=== PATIENT | female | born 1940 | race Hispanic/Latino ===

== ENCOUNTER → 2018-12-14 | Day surgery (SDC) | payer MEDICARE, OTHER ==
[2018-12-03 12:51] LABS: BASOPHILS % 0.1 % (0.0-1.0); EOSINOPHILS # (AUTO) 0.1 (0.0-0.4); EOSINOPHILS % 1.3 % (0.0-6.0); HEMATOCRIT 39.6 % (34.2-44.1); HEMOGLOBIN 12.6 g/dL (12.0-16.0); LYMPHOCYTES # (AUTO) 1.3 (1.0-3.2); LYMPHOCYTES % 18.1 % (18.0-39.1); MEAN CORPUSCULAR HEMOGLOBIN 29.3 pg (28-32); MEAN CORPUSCULAR HGB CONC 31.8 g/dL (31-35); MEAN CORPUSCULAR VOLUME 92.1 fL (81-99); MONOCYTES # (AUTO) 0.4 (0.2-0.8); MONOCYTES % 5.2 % (4.4-11.3); NEUTROPHILS # (AUTO) 5.3 (2.1-6.9); PLATELET COUNT 156 x10e3/uL (140-360); RED CELL DISTRIBUTION WIDTH 13.4 % (11.7-14.4)
[~2018-12-14] MED LIST: AMLODIPINE BESYL5 MG PO; ASPERCREAM TOP; ASPIR 8181 MG PO; ATORVASTATIN CA10 MG PO; FENTANYL CITRATE/PF 100MCG/2 ML INJ ONE; GABAPENTIN300 MG PO; GLIMEPIRIDE2 MG PO; HYDROCHLOROTHIA25 MG PO; HYDROXYZINE HCL25 MG PO; HYOSCYAMINE SULFATE 0.5 MG/ML INJ ONE; IBANDRONATE SO150 MG PO; IMODIUM A-1 MG/7.5 M PO; JARDIANCE PO; LEVSIN0.125 MG PO; LIDOCAINE HCL 2% LOCAL INJ 5 ML SDV VIAL INJ ONE; LOSARTAN POTAS100 MG PO; MAGNESIUM OXID400 MG PO; METFORMIN HCL500 M2 PO; MYRBETRIQ25 MG PO; OMEPRAZOLE40 MG PO; PEDIALYTE1000 ML PO; PROPOFOL IV EMULSION 10 MG/ML 50 ML VIAL ONE; SUCRALFATE1 GM PO; TUCKS1 EAC1 TOP; VIT D3 PO
[2018-12-14 13:15] VITALS: BP 135/79
--- NOTE | 2018-12-14 20:20 | Operative Report ---
DATE OF PROCEDURE: 12/14/2018 SURGEON: Zak Mejia MD PROCEDURES: EGD with biopsies and colonoscopy with polypectomy and biopsies. INDICATIONS FOR EGD: Upper abdominal pain, history of dark stools. INDICATIONS FOR COLONOSCOPY: Colorectal cancer screening, history of intermittent loose stools. MEDICATIONS: The patient was done under MAC, please see anesthesiologist's note. PROCEDURE IN DETAIL: With the patient in left lateral decubitus position, a flexible fiberoptic Olympus gastroscope was introduced into the esophagus under direct visualization without any difficulty. There was some patchy erythema noted in distal esophagus. The scope was then advanced with ease into the stomach traversing a small sliding hiatal hernia. Mucosa overlying the antrum and the body revealed some patchy areas of erythema and low-grade to moderate edema and biopsies were obtained, sent to stain for H pylori. Pylorus was of normal contour and shape, was intubated with ease and the scope was advanced all the way to the second portion of the duodenum. Biopsies were obtained from the proximal second portion and duodenal bulb to rule out sprue. The scope was then withdrawn back into the stomach and retroflexed and mucosa overlying the fundus and cardia appeared to be within normal limits. The scope was then straightened out, it was subsequently withdrawn. The patient tolerated the procedure well. IMPRESSION: 1. Distal esophagitis, mild. 2. Small sliding hiatal hernia. 3. Gastritis, biopsied. Biopsies sent to stain for Helicobacter pylori. 4. Rule out sprue. PLAN: Follow up histology. Increase omeprazole to 40 mg 1 p.o. before meals b.i.d. The patient was then turned around and after adequate lubrication of the anal canal, a flexible fiberoptic Olympus colonoscope was inserted into the rectum with ease and advanced all the way to the cecum. The scope was then withdrawn slowly and mucosa overlying the cecum appeared to be within normal limits. Some diverticular disease was noted in the ascending colon. One polyp was hot biopsied from the ascending colon and there was a submucosal nodule ? lymphoma was noted in the distal ascending colon and that was biopsied. The transverse, descending, sigmoid, and rectum grossly appeared to be within normal limits. The scope was then retroflexed into the distal rectum and small internal hemorrhoids were noted, none of which was actively bleeding. The scope was then straightened out, and it was subsequently withdrawn. The patient tolerated procedure well. IMPRESSION: 1. Ascending colon polyp, hot biopsied. 2. Rule out lipoma, ascending colon. 3. Diverticulosis, ascending colon. 4. Internal hemorrhoids, none actively bleeding. PLAN: Follow up histology. Initiate high-fiber, low-fat diet. Initiate high-fiber supplement. The patient might benefit from a followup colonoscopy in 3 to 5 years. MD KENDRA Noble/ELLE /[id number] cc: Opal Guajardo MD
--- OUTSIDE RECORDS SUMMARY | 2018-12-16 14:44 | XMS REPORT | Clinical Summary ---
Author Author [facility] Organization [facility] Address Unknown Phone Unavailable Care Team Providers Care Market Research Specialist Name Role Phone Waldemar Taveras MD PCP Allergies No Known Allergies Medications Not on file Active Problems Not on file Social History Date Tobacco Use Types Packs/Day Years Used Never Smoker Alcohol Use Drinks/Week oz/Week Comments No Sex Assigned at Date Recorded Not on file Industry Job Start Date Occupation Not on file Not on file Not on file Travel End Travel History Travel Start No recent travel history available. Last Filed Vital Signs Not on file Plan of Treatment Not on file Results Not on fileafter 12/15/2017 Insurance Type Payer Benefit Subscriber ID Effective Phone Address Plan / Dates Group HMO [employer] AMER[employer] xxxxxxxxx 2015-P -[employer] resent AGE MCR O Medicaid MEDICAID MEDICAID xxxxxxxxx 2016-P resent (Home) [place] [address] Advance Directives Patient has advance care planning documents on file. For more information, elvie royal contact: Fareed Palacios [address] [place] [address]
--- OUTSIDE RECORDS SUMMARY | 2018-12-16 14:45 | XMS REPORT | Continuity of Care Document ---
Author Author [facility] Interface Address Unknown Phone Unavailable Problems Problem Status Onset Date Classification Date Reported Comments Source Acute bronchitis, unspecified 09/27/2017 12/25/2017 [facility] Acute URI 09/18/2017 12/25/2017 [facility] Acute bronchitis 09/18/2017 12/25/2017 [facility] COUGH Active 09/17/2017 [facility] CHEST PAIN UNSPECIFIED, ARRHYTHMIA, MUSC Active 04/27/2017 [facility] HEADACHE Active 03/02/2017 [facility] ORTHOSTATIC HYPOTENSION, HYPOMAGNESEMIA Active 03/02/2017 [facility] Discharge Diagnosis: Acute URI 09/22/2016 09/25/2016 [facility] Discharge Diagnosis: Cough 09/22/2016 09/25/2016 [facility] WEAKNESS Active 09/22/2016 [facility] N28.89 Active 07/30/2016 [facility] Z12.31 - ENCNTR SCREEN MAMMOGRAM FOR MA Active 07/11/2016 [facility] 285.1, 789.06 Active 06/16/2016 [facility] Discharge Diagnosis: Palpitations 11/30/2015 12/03/2015 [facility] CHEST DISCOMFORT Active 11/30/2015 [facility] 789.07 - ABDMNAL PAIN GE Active 09/28/2014 [facility] CHEST PAIN Active 03/19/2014 [facility] HIGH BLOOD PRESSURE Active 03/19/2014 [facility] ABDOMINAL PAIN Active 03/09/2014 [facility] Diabetes Active Problem 09/08/2016 [facility] Hypertension Active Problem 09/08/2016 [facility] Diabetes Active Problem 12/25/2017 [facility] Hypertension Active Problem [facility] Chronic gastritis Resolved Problem 01/17/2018 [facility] Diabetes Active Problem 01/17/2018 [facility] Hypertension Active Problem 01/17/2018 [facility] Simple obesity Active Problem 01/17/2018 [facility] Osteoarthritis of back Resolved Problem 01/17/2018 [facility] Acute upper respiratory infection, unspecified 12/25/2017 [facility] Essential hypertension 12/25/2017 [facility] Type 2 diabetes mellitus without complications 12/25/2017 [facility] 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 12/25/2017 [facility] Other nursing home drug therapy 12/25/2017 [facility] Diabetes Active Problem 08/12/2016 [facility], [facility] Hypertension Active Problem 08/12/2016 [facility], [facility] OTHER SPECIFIED DISORDERS OF KIDNEY AND Active [facility] CHEST PAIN, UNSPECIFIED Active [facility] Medications Medication Details Route Status Patient Instructions Ordering Provider Order Date Source atorvastatin 20 mg oral tablet 20 mg=1 tab, PO, Bedtime, # 90 tab, 3 Refill(s), [facility]07[facility]2018 [facility] losartan 100 mg oral tablet 100 mg=1 tab, PO, Daily, # 90 tab, 3 Refill(s), [facility] Active 01/07/2018 [facility] amLODIPine 10 mg oral tablet 10 mg=1 tab, PO, Daily, # 90 tab, 3 Refill(s), [facility] Active 01/07/2018 [facility] ferric oxide, saccharated 100 mg, IV, 0 Refill(s) Active 10/11/2017 [facility] sitagliptin 100 MG Oral Tablet [Januvia] 100 mg=1 tab, PO, Daily, # 30 tab, 0 Refill(s) Active 10/11/2017 [facility] albuterol 90 mcg/inh inhalation aerosol 2 puff, INHALATION, Q6H, PRN for wheezing, # 9 gm, 0 Refill(s) Active 09/18/2017 [facility] atorvastatin 20 mg oral tablet 20 mg=1 tab, PO, Bedtime, # 90 tab, 1 Refill(s), [facility] Active 06/12/2017 [facility] gabapentin 300 MG Oral Capsule 300 mg=1 cap, PO, TID, 0 Refill(s) Active 06/12/2017 [facility] amLODIPine 10 mg oral tablet 10 mg=1 tab, PO, Daily, # 90 tab, 0 Refill(s) Active 06/12/2017 [facility] Omeprazole 40 mg, Route: PO, Daily, Dosing Weight 56.818, kg, Start date: 04/29/17 9:00:00 CDT, Duration: 30 day, Stop date: 05/28/17 9:00:00 CDT No Longer Active 04/29/2017 [facility] 24 HR mirabegron 25 MG Extended Release Tablet [Myrbetriq] 25 mg, 1 tab, Route: PO, Drug form: ERTAB, Daily, Dosing Weight 56.818, kg, Start date: 04/29/17 9:00:00 CDT, Duration: 30 day, Stop date: 05/28/17 9:00:00 CDT Inactive 04/29/2017 [facility] metoprolol extended release 50 mg, 1 tab, Route: PO, Drug form: ERTAB, Daily, Start date: 04/29/17 9:00:00 CDT, Duration: 30 day, Stop date: 05/28/17 9:00:00 CDTNotes: (Same as: Toprol XL) May split tab, but do not crush. Inactive 04/29/2017 [facility] Losartan 100 mg, 2 tab, Route: PO, Drug form: TAB, Daily, Dosing Weight 56.818, kg, Start date: 04/29/17 9:00:00 CDT, Duration: 30 day, Stop date: 05/28/17 9:00:00 CDTNotes: (Same as: Cozaar) Inactive 04/29/2017 [facility] glimepiride 4 mg, Route: PO, Daily, Dosing Weight 56.818, kg, Start date: 04/29/17 9:00:00 CDT, Duration: 30 day, Stop date: 05/28/17 9:00:00 CDT No Longer Active 04/29/2017 [facility] Norvasc 5 mg, 1 tab, Route: PO, Drug form: TAB, Daily, Dosing Weight 56.818, kg, Start date: 04/29/17 9:00:00 CDT, Duration: 30 day, Stop date: 05/28/17 9:00:00 CDTNotes: (Same as: Norvasc) No Longer Active 04/29/2017 [facility] Protonix 40 mg, 1 tab, Route: PO, Drug form: ECTAB, Q12H, Start date: 04/28/17 21:00:00 CDT, Duration: 30 day, Stop date: 05/28/17 9:00:00 CDTNotes: Tablet should not be chewed or crushed. (Same as: Protonix) No Longer Active 04/29/2017 [facility] Sucralfate 1 gm, 1 tab, Route: PO, Drug form: TAB, BID, Dosing Weight 56.818, kg, Start date: 04/28/17 17:00:00 CDT, Duration: 30 day, Stop date: 05/28/17 9:00:00 CDTNotes: May interfere w/enteral feeds - Take 1 hr before or 2 hr after antacids, dairy pdt, meals & minerals - On empty stomach. For patients unable to swallow tablet, dissolve in 10mL - 30mL of water or juice and stir before giving. (Same As: Carafate) No Longer Active 04/28/2017 [facility] Glucotrol 10 mg, 1 tab, Route: PO, Drug form: TAB, BID, Start date: 04/28/17 17:00:00 CDT, Duration: 30 day, Stop date: 05/28/17 9:00:00 CDTNotes: (Same as: Glucotrol) 30 min before meals. No Longer Active 04/28/2017 [facility] Insulin Lispro 8 unit, 0.08 mL, Route: SUB-Q, Drug form: SOLN, TID-Before Meals, Dosing Weight 56.818, kg, PRN Blood Glucose Results, Start date: 04/28/17 14:42:00 CDT, Duration: 30 day, Stop date: 05/28/17 14:41:0 0 CDTNotes: Roll in palms of hands gently; Do not shake `vigorously. (Same as: Humalog ) "Single Patient Use Only " WASTE: F/P - Black; E - Municipal Trash Bin Stable for 28 days at room temperature. Expires in days from Date No Longer Active 04/28/2017 [facility] Dextrose 50% Syringe 12.5 gm, 25 mL, Route: IVP, Drug Form: INJ, Dosing Weight 56.818, kg, PRN, PRN Blood Glucose Results, Start date: 04/28/17 14:42:00 CDT, Duration: 30 day, Stop date: 05/28/17 14:41:00 CDT No Longer Active 04/28/2017 [facility] Glucagon 1 mg, Route: IM, Drug form: PDR/INJ, PRN, Dosing Weight 56.818, kg, PRN Blood Glucose Results, Start date: 04/28/17 14:42:00 CDT, Duration: 30 day, Stop date: 05/28/17 14:41:00 CDT No Longer Active 04/28/2017 [facility] aspirin 81 mg tablet, enteric coated 81 mg, 1 tab, Route: PO, Drug form: ECTAB, Daily, Dosing Weight 56.818, kg, Start date: 04/28/17 9:00:00 CDT, Duration: 30 day, Stop date: 05/27/17 9:00:00 CDTNotes: Do not crush or chew. (Same As: Ecotrin) No Longer Active 04/28/2017 [facility] Magnesium Oxide 400 mg=1 tab, PO, Daily, # 20 tab, 0 Refill(s) Active 04/28/2017 [facility] Omeprazole 40 mg, PO, Daily, 0 Refill(s) Active 04/28/2017 [facility] Aspirin Enteric Coated 81 mg oral delayed release tablet 81 mg=1 tab, PO, Daily, 0 Refill(s) Active 04/28/2017 [facility] sitagliptin 50 MG Oral Tablet [Januvia] 50 mg=1 tab, PO, Daily, # 30 tab, 0 Refill(s) Active 04/28/2017 [facility] Saline Flush 0.9% 10 ml, Route: IVP, Drug Form: INJ, Dosing Weight 56.818, kg, Q12H, Start date: 04/27/17 21:00:00 CDT, Duration: 30 day, Stop date: 05/27/17 9:00:00 CDTNotes: (Same as: BD Posiflush) No Longer Active 04/28/2017 [facility] Sodium Chloride 0.9% IV 250 mL, Route: IVPB, Start date: 04/27/17 20:40:00 CDT, Duration: 30 day, Stop date: 05/27/17 20:39:00 CDT, PRN Line Flush No Longer Active 04/28/2017 [facility] BD Normal Saline Flush 10 mL, Route: IVP, Drug Form: INJ, PRN, PRN Line Flush, Start date: 04/27/17 20:40:00 CDT, Duration: 30 day, Stop date: 05/27/17 20:39:00 CDTNotes: (Same as: BD Posiflush) Inactive 04/28/2017 [facility] Saline Flush 0.9% 10 ml, Route: IVP, Drug Form: INJ, Dosing Weight 56.818, kg, PRN, PRN Line Flush, Start date: 04/27/17 20:20:00 CDT, Duration: 30 day, Stop date: 05/27/17 20:19:00 CDTNotes: (Same as: BD Posiflush) No Longer Active 04/28/2017 [facility] sodium chloride 0.9% 1000 ml INJ 1,000 mL 1,000 mL, Rate: 75 ml/hr, Infuse over: 13.3 hr, Route: IV, Dosing Weight 56.818 kg, Total Volume: 1,000, Start date: 04/27/17 20:20:00 CDT, Duration: 30 day, Stop date: 05/27/17 20:19:00 CDT No Longer Active 04/28/2017 [facility] Morphine 2 mg, 1 mL, Route: IVP, Drug form: SOLN, Q4H, Dosing Weight 56.818, kg, PRN Pain Score 7-10, Start date: 04/27/17 20:20:00 CDT, Duration: 30 day, Stop date: 05/27/17 20:19:00 CDT No Longer Active 04/28/2017 [facility] Ondansetron 4 mg, 2 mL, Route: IVP, Drug form: INJ, Q8H, Dosing Weight 56.818, kg, PRN Nausea & Vomiting, Start date: 04/27/17 20:20:00 CDT, Duration: 30 day, Stop date: 05/27/17 20:19:00 CDTNotes: (Same as: Glenn) MEDICATION WASTE Product Size: 4 mg Product Wasted: _0__ mg No Longer Active 04/28/2017 [facility] Nitroglycerin 0.4 mg, 1 tab, Route: SL, Drug form: TAB, Q5Min, Dosing Weight 56.818, kg, PRN Chest Pain, Start date: 04/27/17 20:20:00 CDT, Duration: 3 doses or times, Stop date: Limited # of timesNotes: (Same as: Nitroquick, Nitrostat) "Do Not Crush" Sublingual tablet No Longer Active 04/28/2017 [facility] Aspirin 325 MG Oral Tablet 325 mg, Route: PO, Drug form: TAB, ONCE, Dosing Weight 56.818, kg, Priority: STAT, Start date: 04/27/17 19:23:00 CDT, Stop date: 04/27/17 19:23:00 CDT Inactive 04/28/2017 [facility] Sodium Chloride 0.9% (Bolus) IV 500 mL, Infuse Over: 1 hr, Route: IV, ONCE, Priority: STAT, Dosing Weight 56.818 kg, Start date: 04/27/17 17:51:00 CDT, Duration: 1 doses or times, Stop date: 04/27/17 17:51:00 CDT Inactive 04/27/2017 [facility] Mag-Ox 400 800 mg, 2 tab, Route: PO, Drug form: TAB, Daily, Dosing Weight 60.455, kg, Start date: 03/03/17 20:00:00 CDT, Duration: 30 day, Stop date: 04/02/17 9:00:00 CDTNotes: (Same as: Mag-Ox 400) Magnesium oxide [id number] elemental magnesium Dose=____mg magnesium oxide (___mg elemental magnesium) Inactive 03/04/2017 [facility] Januvia 100 mg, 1 tab, Route: PO, Drug form: TAB, Daily, Dosing Weight 60.455, kg, Start date: 03/03/17 9:00:00 CDT, Duration: 30 day, Stop date: 04/01/17 9:00:00 CDTNotes: (Same as: Januvia) Inactive 03/03/2017 [facility] Omeprazole 20 mg, Route: PO, Drug form: ECTAB, Daily, Dosing Weight 60.455, kg, Start date: 03/03/17 9:00:00 CDT, Duration: 30 day, Stop date: 04/01/17 9:00:00 CDT Inactive 03/03/2017 [facility] 24 HR mirabegron 25 MG Extended Release Tablet [Myrbetriq] 25 mg, 1 tab, Route: PO, Drug form: ERTAB, Daily, Dosing Weight 60.455, kg, Start date: 03/03/17 9:00:00 CDT, Duration: 30 day, Stop date: 04/01/17 9:00:00 CDTNotes: (Same as: Myrbetriq ER) Non-Formulary Inactive 03/03/2017 [facility] 24 HR Metoprolol Tartrate 25 MG Extended Release Tablet [Toprol] 25 mg, 1 tab, Route: PO, Drug form: ERTAB, Daily, Start date: 03/03/17 9:00:00 CDT, Duration: 30 day, Stop date: 04/01/17 9:00:00 CDTNotes: (Same as: Toprol XL) Do Not Crush Inactive 03/03/2017 [facility] Metformin 1,000 mg, Route: PO, Daily, Dosing Weight 60.455, kg, Start date: 03/03/17 9:00:00 CDT, Duration: 30 day, Stop date: 04/01/17 9:00:00 CDT Inactive 03/03/2017 [facility] glimepiride 4 mg, Route: PO, Daily, Dosing Weight 60.455, kg, Start date: 03/03/17 9:00:00 CDT, Duration: 30 day, Stop date: 04/01/17 9:00:00 CDT Inactive 03/03/2017 [facility] Norvasc 5 mg, 1 tab, Route: PO, Drug form: TAB, Daily, Dosing Weight 60.455, kg, Start date: 03/03/17 9:00:00 CDT, Duration: 30 day, Stop date: 04/01/17 9:00:00 CDTNotes: (Same as: Norvasc) Inactive 03/03/2017 [facility] Losartan 100 mg, Route: PO, Drug form: TAB, Daily, Dosing Weight 60.455, kg, Start date: 03/03/17 9:00:00 CDT, Duration: 30 day, Stop date: 04/01/17 9:00:00 CDT Inactive 03/03/2017 [facility] Aspirin 325 mg, 1 tab, Route: PO, Drug form: TAB, Daily, Dosing Weight 60.455, kg, Start date: 03/03/17 9:00:00 CDT, Duration: 30 day, Stop date: 04/01/17 9:00:00 CDTNotes: Take with food. Inactive 03/03/2017 [facility] Cozaar 100 mg, 2 tab, Route: PO, Drug form: TAB, Daily, Dosing Weight 60.455, kg, Start date: 03/03/17 9:00:00 CDT, Duration: 30 day, Stop date: 04/01/17 9:00:00 CDTNotes: (Same as: Cozaar) Inactive 03/03/2017 [facility] magnesium oxide 400 mg oral tablet 800 mg=2 tab, PO, Daily, # 60 tab, 0 Refill(s) Active 03/03/2017 [facility] Metformin hydrochloride 1000 MG Oral Tablet 1,000 mg, 2 tab, Route: PO, Drug form: TAB, BID-Meals, Dosing Weight 60.455, kg, Start date: 03/03/17 8:00:00 CDT, Duration: 30 day, Stop date: 04/01/17 17:00:00 CDTNotes: (Same as: Glucophage) Take with meal Inactive 03/03/2017 [facility] Sucralfate 1 gm, 1 tab, Route: PO, Drug form: TAB, BID- Before Meals, Dosing Weight 60.455, kg, Start date: 03/03/17 7:30:00 CDT, Duration: 30 day, Stop date: 04/01/17 16:30:00 CDTNotes: May interfere w/enteral feeds - Take 1 hr before or 2 hr after antacids, dairy pdt, meals & minerals - On empty stomach. For patients unable to swallow tablet, dissolve in 10mL - 30mL of water or juice and stir before giving. (Same As: Carafate) Inactive 03/03/2017 [facility] Glucotrol 10 mg, 1 tab, Route: PO, Drug form: TAB, BID- Before Meals, Start date: 03/03/17 7:30:00 CDT, Duration: 30 day, Stop date: 04/01/17 16:30:00 CDTNotes: (Same as: Glucotrol) 30 min before meals. Inactive 03/03/2017 [facility] Protonix 40 mg, 1 tab, Route: PO, Drug form: ECTAB, Before Breakfast, Start date: 03/03/17 7:30:00 CDT, Duration: 30 day, Stop date: 04/01/17 7:30:00 CDTNotes: Tablet should not be chewed or crushed. (Same as: Protonix) Inactive 03/03/2017 [facility] Ibuprofen 200 mg, 1 tab, Route: PO, Drug form: TAB, Q6H, Dosing Weight 60.455, kg, PRN Pain 1-3/Temp > 100.4 F, Start date: 03/03/17 0:16:00 CDT, Duration: 30 day, Stop date: 04/02/17 0:15:00 CDTNotes: (Same as: Advil) Give with food. Inactive 03/03/2017 [facility] Hydralazine 10 mg, Route: IVP, Q6H, Dosing Weight 60.455, kg, Start date: 03/03/17 0:00:00 CDT, Duration: 30 day, Stop date: 04/01/17 18:00:00 CDT No Longer Active 03/03/2017 [facility] Ibuprofen 200 mg, Route: PO, Drug form: CAP, PRN, Dosing Weight 60.455, kg, PRN Pain 1-3/Temp > 100.4 F, Start date: 03/02/17 23:52:00 CDT, Duration: 30 day, Stop date: 04/01/17 23:51:00 CDT No Longer Active 03/03/2017 [facility] Hydralazine 10 mg, 0.5 mL, Route: IVP, Drug form: INJ, Q6H, Dosing Weight 60.455, kg, PRN Hypertension, Start date: 03/02/17 23:51:00 CDT, Duration: 30 day, Stop date: 04/01/17 23:50:00 CDTNotes: (Same as: Apres oline) Push over 5 minutes No Longer Active 03/03/2017 [facility] Magnesium Sulfate 2 gm, 50 mL, Route: IVPB, Drug form: INJ, Q2H, Dosing Weight 60.455, kg, Total dose=4 gm, Start date: 03/02/17 20:00:00 CDT, Duration: 2 doses or times, Stop date: 03/02/17 22:00:00 CDTNotes: WASTE: F/P - Sink; E - Municipal Trash Bin Inactive 03/03/2017 [facility] sucralfate 1 g oral tablet 1 gm=1 tab, PO, BID, 0 Refill(s) Active 03/03/2017 [facility] Metformin hydrochloride 1000 MG Oral Tablet 1,000 mg=1 tab, PO, BID, 0 Refill(s) Active 03/03/2017 [facility] Amlodipine 5 MG Oral Tablet [Norvasc] 5 mg=1 tab, PO, Daily, 0 Refill(s) Active 03/03/2017 [facility] omeprazole 20 mg oral enteric coated tablet 20 mg=1 tab, PO, Daily, 0 Refill(s) Active 03/03/2017 [facility] losartan 100 mg oral tablet 100 mg=1 tab, PO, Daily, 0 Refill(s) Active 03/03/2017 [facility] metoprolol 25 mg oral tablet, extended release 25 mg=1 tab, PO, Daily, 0 Refill(s) Active 03/03/2017 [facility] Enoxaparin 40 mg, 0.4 mL, Route: SUB-Q, Drug form: INJ, [id number], Dosing Weight 60.455, kg, Start date: 03/02/17 19:00:00 CDT, Duration: 30 day, Stop date: 03/31/17 19:00:00 CDTNotes: (Same as: Lovenox) No Longer Active 03/03/2017 [facility] BD Normal Saline Flush 10 mL, Route: IVP, Drug Form: INJ, PRN, PRN Line Flush, Start date: 03/02/17 18:58:00 CDT, Duration: 30 day, Stop date: 04/01/17 18:57:00 CDTNotes: (Same as: BD Posiflush) No Longer Active 03/02/2017 [facility] Sodium Chloride 0.9% IV 250 mL, Route: IVPB, Start date: 03/02/17 18:58:00 CDT, Duration: 30 day, Stop date: 04/01/17 18:57:00 CDT, PRN Line Flush No Longer Active 03/02/2017 [facility] Insulin, Aspart, Human 10 unit, 0.1 mL, Route: SUB-Q, Drug form: SOLN, TID-Before Meals, Dosing Weight 60.455, kg, PRN Blood Glucose Results, Start date: 03/02/17 18:47:00 CDT, Duration: 30 day, Stop date: 04/01/17 18:46:00 CDTNotes: Roll in palms of hands gently; Do not shake vigorously. (Same as: NovoLOG) "single patient use only" WASTE: F/P - Black; E - Municipal Trash Bin Stable for 28 days at room temperature. Expires in days from Date No Longer Active 03/02/2017 [facility] Glucagon 1 mg, Route: IM, Drug form: PDR/INJ, PRN, Dosing Weight 60.455, kg, PRN Blood Glucose Results, Start date: 03/02/17 18:47:00 CDT, Duration: 30 day, Stop date: 04/01/17 18:46:00 CDT No Longer Active 03/02/2017 [facility] Dextrose 50% Syringe 12.5 gm, 25 mL, Route: IVP, Drug Form: INJ, Dosing Weight 60.455, kg, PRN, PRN Blood Glucose Results, Start date: 03/02/17 18:47:00 CDT, Duration: 30 day, Stop date: 04/01/17 18:46:00 CDT No Longer Active 03/02/2017 [facility] sodium chloride 0.9% 1000 ml INJ 1,000 mL 1,000 mL, Rate: 100 ml/hr, Infuse over: 10 hr, Route: IV, Dosing Weight 60.455 kg, Total Volume: 1,000, Start date: 03/02/17 18:44:00 CDT, Duration: 30 day, Stop date: 04/01/17 18:43:00 CDT No Longer Active 03/02/2017 [facility] Magnesium Sulfate 2 gm, Route: IVPB, Drug form: INJ, ONCE, Dosing Weight 60.455, kg, Total dose=2 gm, Start date: 03/02/17 17:28:00 CDT, Duration: 1 doses or times, Stop date: 03/02/17 17:28:00 CDT Inactive 03/02/2017 [facility] Ibuprofen 600 mg, Route: PO, ONCE, Dosing Weight 60.455, kg, Priority: STAT, Start date: 03/02/17 16:45:00 CDT, Stop date: 03/02/17 16:45:00 CDT Inactive 03/02/2017 [facility] Sodium Chloride 0.9% (Bolus) IV 1,000 mL, 1000 ml/hr, Infuse Over: 1 hr, Route: IV, 1,000, Drug form: INJ, ONCE, Priority: STAT, Dosing Weight 60.455 kg, Start date: 03/02/17 16:45:00 CDT, Duration: 1 doses or times, Stop date: 03/02/17 16:45:00 CDT Inactive 03/02/2017 [facility] predniSONE 20 mg oral tablet See Special Instructions, PO, Daily, 16 day regimen: Days 1-4 - 40 mg (2 tabs) daily Days 5-8 - 30 mg (1 1/2 tabs) daily Days 9-12 - 20 mg (1 tab) daily Day 13-16 - 10 mg (1/2 tab) daily, X 16 day, # 24 tab, 0 Refill(s) Active 09/22/2016 [facility] benzonatate 100 MG Oral Capsule [Tessalon Perlse] 100 mg=1 cap, PO, TID, X 10 day, # 30 cap, 0 Refill(s) Active 09/22/2016 [facility] Zofran ODT 4 mg, 1 tab, Route: PO, Drug form: TABDIS, ONCE, Dosing Weight 59.091, kg, Priority: STAT, Start date: 11/30/15 19:30:00 CDT, Stop date: 11/30/15 19:30:00 CDTNotes: (Same as: Zofran ODT) Inactive 12/01/2015 [facility] Magnesium Sulfate 2 gm, 50 mL, Route: IVPB, Drug form: INJ, ONCE, Dosing Weight 59.091, kg, Start date: 11/30/15 19:29:00 CDT, Duration: 2 hr, Stop date: 11/30/15 19:29:00 CDTNotes: WASTE: F/P - Sink; E - Municipal Trash Bin Inactive 12/01/2015 [facility] Protonix 40 mg, 1 tab, Route: PO, Drug form: ECTAB, Before Dinner, Start date: 03/20/14 16:30:00, Duration: 30 day, Stop date: 04/18/14 16:30:00Notes: Tablet should not be chewed or crushed. (Same as: Protonix) Inactive 03/20/2014 [facility] Januvia 100 mg, 1 tab, Route: PO, Drug form: TAB, Daily, Dosing Weight 64.2, kg, Start date: 03/20/14 9:00:00, Duration: 30 day, Stop date: 04/18/14 9:00:00Notes: (Same as: Januvia) Inactive 03/20/2014 [facility] Nitrofurantoin 100 mg, 1 cap, Route: PO, Drug form: CAP, Daily, Dosing Weight 64.2, kg, Start date: 03/20/14 9:00:00, Duration: 30 day, Stop date: 04/18/14 9:00:00Notes: Not Recommended for patients with CrCl Inactive 03/20/2014 [facility] Metformin 1,000 mg, 2 tab, Route: PO, Drug form: TAB, BID, Dosing Weight 64.2, kg, Start date: 03/20/14 9:00:00, Duration: 30 day, Stop date: 04/18/14 17:00:00Notes: (Same as: Glucophage) Take with meal Inactive 03/20/2014 [facility] glimepiride 2 mg, 1 tab, Route: PO, Drug form: TAB, Daily, Dosing Weight 64.2, kg, Start date: 03/20/14 9:00:00, Duration: 30 day, Stop date: 04/18/14 9:00:00Notes: (Same as: Amaryl) Inactive 03/20/2014 [facility] gabapentin 300 mg, 1 cap, Route: PO, Drug form: CAP, Daily, Dosing Weight 64.2, kg, Start date: 03/20/14 9:00:00, Duration: 30 day, Stop date: 04/18/14 9:00:00Notes: (Same as: Neurontin) Inactive 03/20/2014 [facility] Nexium 40 mg, Route: PO, Daily, Dosing Weight 64.2, kg, Start date: 03/20/14 9:00:00, Duration: 30 day, Stop date: 04/18/14 9:00:00 Inactive 03/20/2014 [facility] Aspirin / Calcium Carbonate 325 mg, 1 tab, Route: PO, Drug form: TAB, Daily, Dosing Weight 64.2, kg, Start date: 03/20/14 9:00:00, Duration: 30 day, Stop date: 04/18/14 9:00:00Notes: Take with food. Inactive 03/20/2014 [facility] metoprolol tartrate 50 mg, 1 tab, Route: PO, Drug form: TAB, Q12H, Dosing Weight 64.2, kg, Start date: 03/20/14 9:00:00, Duration: 30 day, Stop date: 04/18/14 21:00:00Notes: (Same as: Lopressor) Inactive 03/20/2014 [facility] Cozaar 100 mg, 2 tab, Route: PO, Drug form: TAB, Daily, Dosing Weight 64.2, kg, Start date: 03/20/14 9:00:00, Duration: 30 day, Stop date: 04/18/14 9:00:00Notes: (Same as: Cozaar) Inactive 03/20/2014 [facility] Saline Flush 0.9% 5 ml, Route: IVP, Drug Form: INJ, Dosing Weight 64.2, kg, Q12H, Start date: 03/20/14 9:00:00, Duration: 30 day, Stop date: 04/18/14 21:00:00Notes: (Same as: BD Posiflush) Inactive 03/20/2014 [facility] metoprolol extended release 50 mg, 1 tab, Route: PO, Drug form: ERTAB, Daily, Start date: 03/20/14 9:00:00, Duration: 30 day, Stop date: 04/18/14 9:00:00Notes: (Same as: Toprol XL) May split tab, but do not crush. Inactive 03/20/2014 [facility] Clonidine 0.1 mg, 1 tab, Route: PO, Drug form: TAB, Q6H, Dosing Weight 64.2, kg, PRN Elevated BP, for sbp is greater than 160, Start date: 03/20/14 8:11:00, Duration: 30 day, Stop date: 04/19/14 8:10:00Notes: (Same As: Catapres) Inactive 03/20/2014 [facility] Enoxaparin 40 mg, 0.4 mL, Route: SUB-Q, Drug form: INJ, [id number], Dosing Weight 64.2, kg, Start date: 03/20/14 8:00:00, Duration: 30 day, Stop date: 04/18/14 8:00:00Notes: (Same as: Lovenox) Inactive 03/20/2014 [facility] Losartan Potassium 100 MG Oral Tablet [Cozaar] 100 mg=1 tab, PO, Daily, # 30 tab, 0 Refill(s) Active 03/20/2014 [facility] metoprolol tartrate 50 mg oral tablet 50 mg=1 tab, PO, Q12H, # 60 tab, 0 Refill(s) Active 03/20/2014 [facility] Insulin, Aspart, Human 4 unit, 0.04 mL, Route: SUB-Q, Drug form: SOLN, TID-Before Meals, Dosing Weight 64.2, kg, PRN Blood Glucose Results, Start date: 03/20/14 7:57:00, Duration: 30 day, Stop date: 04/19/14 7:56:00Notes: Roll in palms of hands gently; Do not shake vigorously. (Same as: NovoLOG) "single patient use only" Stable for 28 days at room temperature. Expires in days from Date Inactive 03/20/2014 [facility] Dextrose 50% Syringe 25 gm, 50 mL, Route: IVP, Drug Form: INJ, Dosing Weight 64.2, kg, PRN, PRN Blood Glucose Results, Start date: 03/20/14 7:57:00, Duration: 30 day, Stop date: 04/19/14 7:56:00 Inactive 03/20/2014 [facility] Glucagon 1 mg, Route: IM, Drug form: PDR/INJ, PRN, Dosing Weight 64.2, kg, PRN Blood Glucose Results, Start date: 03/20/14 7:57:00, Duration: 30 day, Stop date: 04/19/14 7:56:00 Inactive 03/20/2014 [facility] nitrofurantoin macrocrystals 100 mg oral capsule (Macrodantin) 100 mg=1 cap, PO, Daily, 0 Refill(s) Active 03/20/2014 [facility] Ibuprofen 200 MG Oral Capsule [Advil] 200 mg=1 cap, PO, PRN, 0 Refill(s) Active 03/20/2014 [facility] Sodium Chloride 0.9% IV 250 mL, Route: IVPB, Start date: 03/20/14 5:43:00, Duration: 30 day, Stop date: 04/19/14 5:42:00, PRN Line Flush Inactive 03/20/2014 [facility] BD Normal Saline Flush 10 mL, Route: IVP, Drug Form: INJ, PRN, PRN Line Flush, Start date: 03/20/14 5:43:00, Duration: 30 day, Stop date: 04/19/14 5:42:00Notes: (Same as: BD Posiflush) Inactive 03/20/2014 [facility] Saline Flush 0.9% 5 ml, Route: IVP, Drug Form: INJ, Dosing Weight 64.2, kg, PRN, PRN Line Flush, Start date: 03/20/14 5:37:00, Duration: 30 day, Stop date: 04/19/14 5:36:00Notes: (Same as: BD Posiflush) Inactive 03/20/2014 [facility] Ondansetron 4 mg, 1 tab, Route: PO, Drug form: TAB, Q8H, Dosing Weight 64.2, kg, PRN Nausea & Vomiting, Start date: 03/20/14 5:37:00, Duration: 30 day, Stop date: 04/19/14 5:36:00Notes: (Same as: Zofran) Inactive 03/20/2014 [facility] Nitroglycerin 0.4 mg, 1 tab, Route: SL, Drug form: TAB, Q5Min, Dosing Weight 64.2, kg, PRN Chest Pain, Start date: 03/20/14 5:37:00, Duration: 3 doses or times, Stop date: Limited # of timesNotes: (Same as:Nitroqu ick, Nitrostat) "Do Not Crush" Sublingual tablet Inactive 03/20/2014 [facility] aspirin 325 mg tablet 325 mg, Route: PO, Drug form: TAB, ONCE, Dosing Weight 64.2, kg, Start date: 03/20/14 5:37:00, Stop date: 03/20/14 5:37:00 Inactive 03/20/2014 [facility] Aspirin / Calcium Carbonate 325 mg, 1 tab, Route: PO, Drug form: TAB, ONCE, Dosing Weight 63.636, kg, Priority: STAT, Start date: 03/20/14 4:55:00, Stop date: 03/20/14 4:55:00Notes: Take with food. Inactive 03/20/2014 [facility] Labetalol 20 mg, 4 mL, Route: IVP, Drug form: INJ, ONCE, Dosing Weight 63.636, kg, Priority: STAT, Start date: 03/20/14 3:16:00, Stop date: 03/20/14 3:16:00 Inactive 03/20/2014 [facility] Saline Flush 0.9% 10 mL, Route: IVP, Drug Form: INJ, Dosing Weight 63.636, kg, PRN, PRN Line Flush, Start date: 03/20/14 1:45:00, Duration: 30 day, Stop date: 04/19/14 1:44:00Notes: (Same as: BD Posiflush) Inactive 03/20/2014 [facility] glimepiride 2 mg, PO, Daily, 0 Refill(s) Active 03/20/2014 [facility] gabapentin 300 mg, PO, Daily, 0 Refill(s) Active 03/20/2014 [facility] 24 HR mirabegron 25 MG Extended Release Tablet [Myrbetriq] 25 mg=1 tab, PO, Daily, 0 Refill(s) Active 03/20/2014 [facility] losartan 50 mg oral tablet 0 Refill(s) Inactive 03/20/2014 [facility] Metformin 1,000 mg, Daily, 0 Refill(s) Active 03/20/2014 [facility] Nexium 40 mg, PO, Daily, 0 Refill(s) Active 03/20/2014 [facility] metoprolol 25 mg oral tablet, extended release 0 Refill(s) Inactive 03/20/2014 [facility] Januvia 100 mg, PO, Daily, 0 Refill(s) Active 03/20/2014 [facility] Allergies, Adverse Reactions, Alerts Substance Category Reaction Severity Reaction type Status Date Reported Comments Source adenosine Assertion Drug allergy [facility] contrast media (iodine-based) Assertion Drug allergy [facility] Immunizations Immunization Date Given Site Status Last Updated Comments Source influenza virus vaccine, inactivated<sup>1</sup> 04/28/2017 Not Given [facility] Results Order Name Results Value Reference Range Date Interpretation Comments Source Spine cervical wo contrast MRI Spine cervical wo contrast MRI Clinical Indication: M54.12 - Radiculopathy, cervical region - M54.12 - Radiculopathy, cervical region, Headaches, neck pain Comparison: None TECHNIQUE: Multiplanar T1, T2, and STIR weighted MRI of the cervical spine is performed on a 3 Bel magnet. FINDINGS: ALIGNMENT AND GENERAL ASSESSMENT: There is no myelomalacia or or cord edema. There is no cerebellar tonsillar ectopia. Normal flow is demonstrated from both vertebral arteries. The C1-C2 articulation is intact. A minute 3 mm cyst base of the odontoid process is present. The prevertebral soft tissues are normal. DISC SPACES: C2-C3: There is no central or foraminal stenosis. There is degenerative change of the left facet joint. C3-C4: There is no central or foraminal stenosis. There is degenerative change right facet joint. C4-C5: There is no central or foraminal stenosis. There is degenerative change of bilateral facets. C5-C6: There is a 1 mm central protrusion without central canal stenosis there are due to changes of facet joints. C6-C7: The disc space is desiccated and narrowed and is a 2 mm bulge of the annulus and lateral spondylosis without significant central or foraminal stenosis. C7-T1: There is no central or foraminal stenosis. 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 There is no central canal stenosis. SL: [facility] 07/27/2018 - - Read by: Jose Glass MD Dictated Date/time: 07/27/18 12:53 Electronically Signed by: Jose Glass MD 07/27/18 12:55 FINAL REPORT [facility] ELECTROLYTES AGAP 12.0 meq/L 10.0 - 20.0 09/18/2017 [facility] ELECTROLYTES eGFR 54 mL/min/1.73m2 09/18/2017 Result Comment: The eGFR is calculated using the CKD-EPI formula. In most young, healthy individuals the eGFR will be >90 mL/min/1.73m2. The eGFR declines with age. An eGFR of 60-89 may be normal in some populations, particularly the elderly, for whom the CKD-EPI formula has not been extensively validated. Use of the eGFR is not recommended in the following populations: Individuals with unstable creatinine concentrations, including patients and those with serious co-morbid conditions. Patients with extremes in muscle mass or diet. The data above are obtained from the National Kidney Disease Education Program (NKDEP) which additionally recommends that when the eGFR is used in patients with extremes of body mass index for purposes of drug dosing, the eGFR should be multiplied by the estimated BMI. [facility] ELECTROLYTES Potassium Lvl 4.0 meq/L 3.5 - 5.1 09/18/2017 [facility] ELECTROLYTES Sodium Lvl 138 meq/L 135 - 145 09/18/2017 [facility] ELECTROLYTES Creatinine Lvl 1.00 mg/dL 0.50 - 1.40 09/18/2017 [facility] ELECTROLYTES CO2 26 meq/L 24 - 32 09/18/2017 [facility] ELECTROLYTES Chloride Lvl 104 meq/L 95 - 109 09/18/2017 [facility] ELECTROLYTES Calcium Lvl 9.0 mg/dL 8.5 - 10.5 09/18/2017 [facility] ELECTROLYTES BUN 18 mg/dL 7 - 22 09/18/2017 [facility] ELECTROLYTES Glucose Lvl 180 mg/dL 70 - 99 09/18/2017 [facility] Monocytes # 0.5 K/CMM 0.0 - 0.8 09/18/2017 [facility] Lymphocytes # 1.1 K/CMM 1.0 - 5.5 09/18/2017 [facility] Monocytes 8.3 % 2.0 - 12.0 09/18/2017 [facility] Lymphocytes 19.0 % 20.0 - 40.0 09/18/2017 [facility] HEMATOLOGY Segs 71.4 % 45.0 - 75.0 09/18/2017 [facility] Basophils # 0.0 K/CMM 0.0 - 0.2 09/18/2017 [facility] HEMATOLOGY Eosinophils # 0.0 K/CMM 0.0 - 0.5 09/18/2017 [facility] Segs-Bands # 4.1 K/CMM 1.5 - 8.1 09/18/2017 [facility] Basophils 0.5 % 0.0 - 1.0 09/18/2017 [facility] Eosinophils 0.8 % 0.0 - 4.0 09/18/2017 [facility] MPV 9.2 fL 7.4 - 10.4 09/18/2017 [facility] Platelet 137 K/CMM 133 - 450 09/18/2017 [facility] RDW 14.1 % 11.5 - 14.5 09/18/2017 [facility] MCHC 32.8 g/dL 32.0 - 36.0 09/18/2017 [facility] WBC 5.8 K/CMM 3.7 - 10.4 09/18/2017 [facility] RBC 3.45 M/CMM 4.20 - 5.40 09/18/2017 [facility] Hgb 10.3 g/dL 12.0 - 16.0 09/18/2017 [facility] MCV 90.9 fL 80.0 - 98.0 09/18/2017 [facility] MCH 29.8 pg 27.0 - 31.0 09/18/2017 [facility] Hct 31.4 % 36.0 - 48.0 09/18/2017 [facility] RAPID Grp A Strep Scr Negative (09/17/17 10:35 PM) Negative 09/18/2017 [facility] VIRAL - SEROLOGY Influ B Negative (09/17/17 10:35 PM) Negative 09/18/2017 [facility] VIRAL - SEROLOGY Influ A Negative (09/17/17 10:35 PM) Negative 09/18/2017 [facility] Chest 2 views DX Chest 2 views DX Study: CHEST, PA AND LATERAL Clinical Indication: - Cough evaluate for pneumonia; Comparison: Chest 04/27/2017 FINDINGS: Cardiac size is normal. Aortic atherosclerosis is noted. The lungs are hyperinflated. No pneumonia, vascular congestion or pleural effusion is seen. There is mild thoracic dextroscoliosis and moderate spondylosis. Cholecystectomy has been performed. IMPRESSION: No acute abnormality or change. Hyperinflation. SL: WPFEIFFER- 09/17/2017 - - Read by: Frank Singh MD Dictated Date/time: 09/17/17 21:12 Electronically Signed by: Frank Singh MD 09/17/17 21:13 FINAL REPORT [facility] CARDIAC ENZYMES Troponin-I null 0.00 - 0.40 04/28/2017 [facility] CARDIAC ENZYMES Total CK 48 unit/L 12 - 04/28/2017 [facility] CARDIAC ENZYMES Troponin-I null 0.00 - 0.40 04/28/2017 [facility] CARDIAC ENZYMES Total CK 55 unit/L 12 - 04/28/2017 [facility] URINE AND STOOL UA Spec Grav 1.003 <=1.030 04/27/2017 [facility] URINE AND STOOL UA Urobilinogen <=1.0 mg/dL 0.1 - 1.0 04/27/2017 [facility] URINE AND STOOL UA RBC null 0 - 2 04/27/2017 [facility] URINE AND STOOL UA Mucus Few /LPF None Seen /LPF 04/27/2017 [facility] URINE AND STOOL UA Sq Epi Occasional /LPF Few /LPF 04/27/2017 [facility] URINE AND STOOL UA WBC 1 /HPF 0 - 5 04/27/2017 [facility] URINE AND STOOL UA Ketones Negative mg/dL Negative mg/dL 04/27/2017 [facility] URINE AND STOOL UA Bili Negative *NA* (04/27/17 6:53 PM) Negative 04/27/2017 [facility] URINE AND STOOL UA Leuk Est Negative (04/27/17 6:53 PM) Negative 04/27/2017 [facility] URINE AND STOOL UA Blood Small *ABN* (04/27/17 6:53 PM) Negative 04/27/2017 [facility] URINE AND STOOL UA Nitrite Negative (04/27/17 6:53 PM) Negative 04/27/2017 [facility] URINE AND STOOL UA pH 7.0 5.0 - 8.0 04/27/2017 [facility] URINE AND STOOL UA Protein Negative mg/dL Negative mg/dL 04/27/2017 [facility] URINE AND STOOL UA Glucose Negative mg/dL Negative mg/dL 04/27/2017 [facility] URINE AND STOOL UA Turbidity Clear (04/27/17 6:53 PM) Clear 04/27/2017 [facility] URINE AND STOOL UA Color Colorless *NA* (04/27/17 6:53 PM) Yellow 04/27/2017 [facility] CARDIAC ENZYMES BNP 186 pg/mL <=100 pg/mL 04/27/2017 [facility] CHEM PANEL Magnesium Lvl 1.8 mg/dL 1.8 - 2.4 04/27/2017 [facility] CARDIAC ENZYMES Total CK 57 unit/L 12 - 191 04/27/2017 [facility] CARDIAC ENZYMES Troponin-I null 0.00 - 0.40 04/27/2017 [facility] CHEM PANEL eGFR 49 mL/min/1.73m2 04/27/2017 Result Comment: The eGFR is calculated using the CKD-EPI formula. In most young, healthy individuals the eGFR will be >90 mL/min/1.73m2. The eGFR declines with age. An eGFR of 60-89 may be normal in some populations, particularly the elderly, for whom the CKD-EPI formula has not been extensively validated. Use of the eGFR is not recommended in the following populations: Individuals with unstable creatinine concentrations, including patients and those with serious co-morbid conditions. Patients with extremes in muscle mass or diet. The data above are obtained from the National Kidney Disease Education Program (NKDEP) which additionally recommends that when the eGFR is used in patients with extremes of body mass index for purposes of drug dosing, the eGFR should be multiplied by the estimated BMI. [facility] CHEM PANEL CO2 28 meq/L 24 - 32 04/27/2017 [facility] CHEM PANEL Chloride Lvl 106 meq/L 95 - 109 04/27/2017 [facility] CHEM PANEL Sodium Lvl 141 meq/L 135 - 145 04/27/2017 [facility] CHEM PANEL Potassium Lvl 4.9 meq/L 3.5 - 5.1 04/27/2017 [facility] CHEM PANEL Calcium Lvl 9.7 mg/dL 8.5 - 10.5 04/27/2017 [facility] CHEM PANEL Creatinine Lvl 1.10 mg/dL 0.50 - 1.40 04/27/2017 [facility] CHEM PANEL BUN 16 mg/dL 7 - 22 04/27/2017 [facility] CHEM PANEL Glucose Lvl 122 mg/dL 70 - 99 04/27/2017 [facility] CHEM PANEL AGAP 11.9 meq/L 10.0 - 20.0 04/27/2017 [facility] Platelet 166 K/CMM 133 - 450 04/27/2017 [facility] RDW 13.7 % 11.5 - 14.5 04/27/2017 [facility] MPV 9.8 fL 7.4 - 10.4 04/27/2017 [facility] RBC 4.34 M/CMM 4.20 - 5.40 04/27/2017 [facility] MCHC 33.0 g/dL 32.0 - 36.0 04/27/2017 [facility] MCH 30.1 pg 27.0 - 31.0 04/27/2017 [facility] Hct 39.6 % 36.0 - 48.0 04/27/2017 [facility] Hgb 13.1 g/dL 12.0 - 16.0 04/27/2017 [facility] MCV 91.2 fL 80.0 - 98.0 04/27/2017 [facility] HEMATOLOGY WBC 7.4 K/CMM 3.7 - 10.4 04/27/2017 [facility] HEMATOLOGY Basophils # 0.0 K/CMM 0.0 - 0.2 04/27/2017 [facility] HEMATOLOGY Eosinophils # 0.0 K/CMM 0.0 - 0.5 04/27/2017 [facility] HEMATOLOGY Monocytes # 0.4 K/CMM 0.0 - 0.8 04/27/2017 [facility] HEMATOLOGY Monocytes 5.1 % 2.0 - 12.0 04/27/2017 [facility] HEMATOLOGY Lymphocytes 17.0 % 20.0 - 40.0 04/27/2017 [facility] Lymphocytes # 1.3 K/CMM 1.0 - 5.5 04/27/2017 [facility] HEMATOLOGY Segs-Bands # 5.7 K/CMM 1.5 - 8.1 04/27/2017 [facility] Basophils 0.1 % 0.0 - 1.0 04/27/2017 [facility] Eosinophils 0.4 % 0.0 - 4.0 04/27/2017 [facility] HEMATOLOGY Segs 77.4 % 45.0 - 75.0 04/27/2017 [facility] Chest 1view DX Chest 1view DX Study: Frontal chest x-ray compared to 09/22/2016. History: Bradycardia Comments: The trachea is midline. The cardiomediastinal silhouette is normal in size. No pneumonia. No pleural effusions or pneumothorax. Degenerative changes in the spine Cholecystectomy Impression: No acute cardiopulmonary disease. 04/27/2017 - - Read by: Sharon Baca MD Dictated Date/time: 04/27/17 17:44 Electronically Signed by: Shraon Bcaa MD 04/27/17 17:47 FINAL REPORT [facility] CARDIAC ENZYMES Total CK 58 unit/L 12 - 191 03/03/2017 [facility] CARDIAC ENZYMES CK MB 0.5 ng/mL 0.5 - 3.6 03/03/2017 [facility] CARDIAC ENZYMES Troponin-I null 0.00 - 0.40 03/03/2017 [facility] CHEM PANEL eGFR 84 mL/min/1.73m2 03/03/2017 Result Comment: The eGFR is calculated using the CKD-EPI formula. In most young, healthy individuals the eGFR will be >90 mL/min/1.73m2. The eGFR declines with age. An eGFR of 60-89 may be normal in some populations, particularly the elderly, for whom the CKD-EPI formula has not been extensively validated. Use of the eGFR is not recommended in the following populations: Individuals with unstable creatinine concentrations, including patients and those with serious co-morbid conditions. Patients with extremes in muscle mass or diet. The data above are obtained from the National Kidney Disease Education Program (NKDEP) which additionally recommends that when the eGFR is used in patients with extremes of body mass index for purposes of drug dosing, the eGFR should be multiplied by the estimated BMI. [facility] CHEM PANEL Calcium Lvl 8.8 mg/dL 8.5 - 10.5 03/03/2017 [facility] CHEM PANEL AGAP 11.9 meq/L 10.0 - 20.0 03/03/2017 [facility] CHEM PANEL Glucose Lvl 98 mg/dL 70 - 99 03/03/2017 [facility] CHEM PANEL CO2 27 meq/L 24 - 32 03/03/2017 [facility] CHEM PANEL Chloride Lvl 110 meq/L 95 - 109 03/03/2017 [facility] CHEM PANEL BUN 15 mg/dL 7 - 22 03/03/2017 [facility] CHEM PANEL Potassium Lvl 3.9 meq/L 3.5 - 5.1 03/03/2017 [facility] CHEM PANEL Sodium Lvl 145 meq/L 135 - 145 03/03/2017 [facility] CHEM PANEL Creatinine Lvl 0.70 mg/dL 0.50 - 1.40 03/03/2017 [facility] CHEM PANEL Magnesium Lvl 2.9 mg/dL 1.8 - 2.4 03/03/2017 [facility] HEMATOLOGY Segs 58.8 % 45.0 - 75.0 03/03/2017 [facility] HEMATOLOGY Lymphocytes # 1.7 K/CMM 1.0 - 5.5 03/03/2017 [facility] HEMATOLOGY Basophils 0.5 % 0.0 - 1.0 03/03/2017 [facility] HEMATOLOGY Eosinophils 0.8 % 0.0 - 4.0 03/03/2017 [facility] HEMATOLOGY Segs-Bands # 3.3 K/CMM 1.5 - 8.1 03/03/2017 [facility] HEMATOLOGY Lymphocytes 29.7 % 20.0 - 40.0 03/03/2017 [facility] HEMATOLOGY Monocytes 10.2 % 2.0 - 12.0 03/03/2017 [facility] HEMATOLOGY Monocytes # 0.6 K/CMM 0.0 - 0.8 03/03/2017 [facility] HEMATOLOGY WBC 5.7 K/CMM 3.7 - 10.4 03/03/2017 [facility] HEMATOLOGY MCH 30.2 pg 27.0 - 31.0 03/03/2017 [facility] HEMATOLOGY MCHC 33.8 g/dL 32.0 - 36.0 03/03/2017 [facility] HEMATOLOGY MCV 89.3 fL 80.0 - 98.0 03/03/2017 [facility] HEMATOLOGY Hgb 10.9 g/dL 12.0 - 16.0 03/03/2017 [facility] HEMATOLOGY Hct 32.3 % 36.0 - 48.0 03/03/2017 [facility] HEMATOLOGY RBC 3.62 M/CMM 4.20 - 5.40 03/03/2017 [facility] MPV 9.6 fL 7.4 - 10.4 03/03/2017 [facility] Platelet 132 K/CMM 133 - 450 03/03/2017 [facility] HEMATOLOGY RDW 13.1 % 11.5 - 14.5 03/03/2017 [facility] LIPIDS LDL (Calculated) 53 mg/dL <=99 mg/dL 03/03/2017 [facility] LIPIDS VLDL 28 03/03/2017 [facility] LIPIDS CHD Risk 3.45 3.90 - 5.80 03/03/2017 [facility] LIPIDS Trig 140 mg/dL <=149 mg/dL 03/03/2017 [facility] LIPIDS Chol 114 mg/dL <=199 mg/dL 03/03/2017 [facility] LIPIDS HDL 33 mg/dL >=61 mg/dL 03/03/2017 [facility] CARDIAC ENZYMES Total CK 71 unit/L 12 - 03/03/2017 [facility] CARDIAC ENZYMES CK MB 0.7 ng/mL 0.5 - 3.6 03/03/2017 [facility] CARDIAC ENZYMES Troponin-I null 0.00 - 0.40 03/03/2017 [facility] SPECIAL CHEMISTRY Hgb A1C 6.9 % <=5.6 % 03/03/2017 [facility] CARDIAC ENZYMES CK MB Index 1.9 0.0 - 2.5 03/02/2017 [facility] CARDIAC ENZYMES CK MB 1.5 ng/mL 0.5 - 3.6 03/02/2017 [facility] CARDIAC ENZYMES Total CK 78 unit/L 12 - 191 03/02/2017 [facility] CARDIAC ENZYMES Troponin-I null 0.00 - 0.40 03/02/2017 [facility] CHEM PANEL Bili Indirect 0.3 mg/dL 0.0 - 1.0 03/02/2017 [facility] CHEM PANEL A/G Ratio 0.9 0.7 - 1.6 03/02/2017 [facility] CHEM PANEL Globulin 4.3 g/dL 2.7 - 4.2 03/02/2017 [facility] CHEM PANEL Bili Total 0.4 mg/dL 0.2 - 1.3 03/02/2017 [facility] CHEM PANEL Alk Phos 65 unit/L 39 - 136 03/02/2017 [facility] CHEM PANEL Total Protein 8.0 g/dL 6.4 - 8.4 03/02/2017 [facility] CHEM PANEL Bili Direct 0.1 mg/dL 0.0 - 0.3 03/02/2017 [facility] CHEM PANEL AST 17 unit/L 0 - 37 03/02/2017 [facility] CHEM PANEL ALT 30 unit/L 0 - 65 03/02/2017 [facility] CHEM PANEL Albumin Lvl 3.7 g/dL 3.5 - 5.0 03/02/2017 [facility] CHEM PANEL Magnesium Lvl 1.3 mg/dL 1.8 - 2.4 03/02/2017 [facility] CHEM PANEL Lipase Lvl 159 unit/L 73 - 393 03/02/2017 [facility] ELECTROLYTES AGAP 5.4 meq/L 10.0 - 20.0 03/02/2017 [facility] ELECTROLYTES eGFR 63 mL/min/1.73m2 03/02/2017 Result Comment: The eGFR is calculated using the CKD-EPI formula. In most young, healthy individuals the eGFR will be >90 mL/min/1.73m2. The eGFR declines with age. An eGFR of 60-89 may be normal in some populations, particularly the elderly, for whom the CKD-EPI formula has not been extensively validated. Use of the eGFR is not recommended in the following populations: Individuals with unstable creatinine concentrations, including patients and those with serious co-morbid conditions. Patients with extremes in muscle mass or diet. The data above are obtained from the National Kidney Disease Education Program (NKDEP) which additionally recommends that when the eGFR is used in patients with extremes of body mass index for purposes of drug dosing, the eGFR should be multiplied by the estimated BMI. [facility] ELECTROLYTES Creatinine Lvl 0.90 mg/dL 0.50 - 1.40 03/02/2017 [facility] ELECTROLYTES CO2 32 meq/L 24 - 32 03/02/2017 [facility] ELECTROLYTES Calcium Lvl 9.7 mg/dL 8.5 - 10.5 03/02/2017 [facility] ELECTROLYTES Chloride Lvl 104 meq/L 95 - 109 03/02/2017 [facility] ELECTROLYTES Potassium Lvl 4.4 meq/L 3.5 - 5.1 03/02/2017 [facility] ELECTROLYTES Glucose Lvl 129 mg/dL 70 - 99 03/02/2017 [facility] ELECTROLYTES Sodium Lvl 137 meq/L 135 - 145 03/02/2017 [facility] ELECTROLYTES BUN 16 mg/dL 7 - 22 03/02/2017 [facility] HEMATOLOGY MPV 9.6 fL 7.4 - 10.4 03/02/2017 [facility] Hgb 12.3 g/dL 12.0 - 16.0 03/02/2017 [facility] WBC 6.4 K/CMM 3.7 - 10.4 03/02/2017 [facility] RBC 4.12 M/CMM 4.20 - 5.40 03/02/2017 [facility] RDW 12.9 % 11.5 - 14.5 03/02/2017 [facility] Hct 37.5 % 36.0 - 48.0 03/02/2017 [facility] MCH 29.9 pg 27.0 - 31.0 03/02/2017 [facility] MCV 90.9 fL 80.0 - 98.0 03/02/2017 [facility] MCHC 32.9 g/dL 32.0 - 36.0 03/02/2017 [facility] Platelet 169 K/CMM 133 - 450 03/02/2017 [facility] Monocytes # 0.4 K/CMM 0.0 - 0.8 03/02/2017 [facility] [facility] Lymphocytes # 1.4 K/CMM 1.0 - 5.5 03/02/2017 [facility] Basophils # 0.0 K/CMM 0.0 - 0.2 03/02/2017 [facility] Eosinophils # 0.0 K/CMM 0.0 - 0.5 03/02/2017 [facility] HEMATOLOGY Segs 70.4 % 45.0 - 75.0 03/02/2017 [facility] Lymphocytes 22.4 % 20.0 - 40.0 03/02/2017 [facility] Monocytes 6.5 % 2.0 - 12.0 03/02/2017 [facility] HEMATOLOGY Basophils 0.2 % 0.0 - 1.0 03/02/2017 [facility] HEMATOLOGY Eosinophils 0.5 % 0.0 - 4.0 03/02/2017 [facility] HEMATOLOGY Segs-Bands # 4.5 K/CMM 1.5 - 8.1 03/02/2017 [facility] URINE AND STOOL UA Urobilinogen <=1.0 mg/dL 0.1 - 1.0 03/02/2017 [facility] URINE AND STOOL UA Ketones Negative mg/dL Negative mg/dL 03/02/2017 [facility] URINE AND STOOL UA Bili Negative *NA* (03/02/17 2:21 PM) Negative 03/02/2017 [facility] URINE AND STOOL UA pH 6.0 5.0 - 8.0 03/02/2017 [facility] URINE AND STOOL UA Protein Negative mg/dL Negative mg/dL 03/02/2017 [facility] URINE AND STOOL UA Glucose Negative mg/dL Negative mg/dL 03/02/2017 [facility] URINE AND STOOL UA Leuk Est Negative (03/02/17 2:21 PM) Negative 03/02/2017 [facility] URINE AND STOOL UA Sq Epi Moderate /LPF Few /LPF 03/02/2017 [facility] URINE AND STOOL UA Blood Small *ABN* (03/02/17 2:21 PM) Negative 03/02/2017 [facility] URINE AND STOOL UA Nitrite Negative (03/02/17 2:21 PM) Negative 03/02/2017 [facility] URINE AND STOOL UA Color Light Yellow *NA* (03/02/17 2:21 PM) Yellow 03/02/2017 [facility] URINE AND STOOL UA WBC null 0 - 5 03/02/2017 [facility] URINE AND STOOL UA RBC 2 /HPF 0 - 2 03/02/2017 [facility] URINE AND STOOL UA Mucus Few /LPF None Seen /LPF 03/02/2017 [facility] URINE AND STOOL UA Spec Grav 1.003 <=1.030 03/02/2017 [facility] URINE AND STOOL UA Turbidity Clear (03/02/17 2:21 PM) Clear 03/02/2017 [facility] CARDIAC ENZYMES CK MB Index 1.5 0.0 - 2.5 09/22/2016 [facility] CARDIAC ENZYMES Troponin-I null 0.00 - 0.40 09/22/2016 [facility] CARDIAC ENZYMES CK MB 0.8 ng/mL 0.5 - 3.6 09/22/2016 [facility] CARDIAC ENZYMES Total CK 53 unit/L 12 - 191 09/22/2016 [facility] CHEM PANEL eGFR 70 mL/min/1.73m2 09/22/2016 Result Comment: The eGFR is calculated using the CKD-EPI formula. In most young, healthy individuals the eGFR will be >90 mL/min/1.73m2. The eGFR declines with age. An eGFR of 60-89 may be normal in some populations, particularly the elderly, for whom the CKD-EPI formula has not been extensively validated. Use of the eGFR is not recommended in the following populations: Individuals with unstable creatinine concentrations, including patients and those with serious co-morbid conditions. Patients with extremes in muscle mass or diet. The data above are obtained from the National Kidney Disease Education Program (NKDEP) which additionally recommends that when the eGFR is used in patients with extremes of body mass index for purposes of drug dosing, the eGFR should be multiplied by the estimated BMI. [facility] CHEM PANEL Albumin Lvl 3.4 g/dL 3.5 - 5.0 09/22/2016 [facility] CHEM PANEL Total Protein 7.5 g/dL 6.4 - 8.4 09/22/2016 [facility] CHEM PANEL A/G Ratio 0.8 0.7 - 1.6 09/22/2016 [facility] CHEM PANEL Globulin 4.1 g/dL 2.7 - 4.2 09/22/2016 [facility] CHEM PANEL B/C Ratio 11 6 - 25 09/22/2016 [facility] CHEM PANEL AST 15 unit/L 0 - 37 09/22/2016 [facility] CHEM PANEL ALT 30 unit/L 0 - 65 09/22/2016 [facility] CHEM PANEL Bili Total 0.6 mg/dL 0.2 - 1.3 09/22/2016 [facility] CHEM PANEL AGAP 11.3 meq/L 10.0 - 20.0 09/22/2016 [facility] CHEM PANEL Alk Phos 55 unit/L 39 - 136 09/22/2016 [facility] CHEM PANEL Chloride Lvl 104 meq/L 95 - 109 09/22/2016 [facility] CHEM PANEL Potassium Lvl 4.3 meq/L 3.5 - 5.1 09/22/2016 [facility] CHEM PANEL Sodium Lvl 140 meq/L 135 - 145 09/22/2016 [facility] CHEM PANEL Calcium Lvl 9.4 mg/dL 8.5 - 10.5 09/22/2016 [facility] CHEM PANEL CO2 29 meq/L 24 - 32 09/22/2016 [facility] CHEM PANEL Creatinine Lvl 0.81 mg/dL 0.50 - 1.40 09/22/2016 [facility] CHEM PANEL BUN 9 mg/dL 7 - 22 09/22/2016 [facility] CHEM PANEL Glucose Lvl 161 mg/dL 70 - 99 09/22/2016 [facility] HEMATOLOGY Basophils 0.2 % 0.0 - 1.0 09/22/2016 [facility] HEMATOLOGY Basophils # 0.0 K/CMM 0.0 - 0.2 09/22/2016 [facility] HEMATOLOGY Eosinophils # 0.0 K/CMM 0.0 - 0.5 09/22/2016 [facility] Monocytes 5.6 % 2.0 - 12.0 09/22/2016 [facility] Lymphocytes 21.8 % 20.0 - 40.0 09/22/2016 [facility] Eosinophils 0.4 % 0.0 - 4.0 09/22/2016 [facility] Lymphocytes # 1.5 K/CMM 1.0 - 5.5 09/22/2016 [facility] Segs-Bands # 5.1 K/CMM 1.5 - 8.1 09/22/2016 [facility] Monocytes # 0.4 K/CMM 0.0 - 0.8 09/22/2016 [facility] Segs 72.0 % 45.0 - 75.0 09/22/2016 [facility] RBC 4.10 M/CMM 4.20 - 5.40 09/22/2016 [facility] Hct 35.9 % 36.0 - 48.0 09/22/2016 [facility] Hgb 11.7 g/dL 12.0 - 16.0 09/22/2016 [facility] WBC 7.1 K/CMM 3.7 - 10.4 09/22/2016 [facility] MCH 28.6 pg 27.0 - 31.0 09/22/2016 [facility] MCV 87.6 fL 80.0 - 98.0 09/22/2016 [facility] Platelet 193 K/CMM 133 - 450 09/22/2016 [facility] MPV 9.0 fL 7.4 - 10.4 09/22/2016 [facility] MCHC 32.7 g/dL 32.0 - 36.0 09/22/2016 [facility] HEMATOLOGY RDW 12.9 % 11.5 - 14.5 09/22/2016 [facility] URINE AND STOOL UA Glucose 50 mg/dL 09/22/2016 [facility] URINE AND STOOL UA Urobilinogen <=1.0 mg/dL 0.1 - 1.0 09/22/2016 [facility] URINE AND STOOL UA Bili Negative *NA* (09/22/16 2:08 PM) Negative 09/22/2016 [facility] URINE AND STOOL UA Blood Small *ABN* (09/22/16 2:08 PM) Negative 09/22/2016 [facility] URINE AND STOOL UA Nitrite Negative (09/22/16 2:08 PM) Negative 09/22/2016 [facility] URINE AND STOOL UA pH 7.0 5.0 - 8.0 09/22/2016 [facility] URINE AND STOOL UA Protein Negative mg/dL Negative mg/dL 09/22/2016 [facility] URINE AND STOOL UA Ketones Negative mg/dL Negative mg/dL 09/22/2016 [facility] URINE AND STOOL UA RBC 1 /HPF 0 - 2 09/22/2016 [facility] URINE AND STOOL UA WBC 1 /HPF 0 - 5 09/22/2016 [facility] URINE AND STOOL UA Leuk Est Negative (09/22/16 2:08 PM) Negative 09/22/2016 [facility] URINE AND STOOL UA Sq Epi Many /LPF Few /LPF 09/22/2016 [facility] URINE AND STOOL UA Turbidity Clear (09/22/16 2:08 PM) Clear 09/22/2016 [facility] URINE AND STOOL UA Color Light Yellow *NA* (09/22/16 2:08 PM) Yellow 09/22/2016 [facility] URINE AND STOOL UA Spec Grav 1.010 <=1.030 09/22/2016 [facility] VIRAL - SEROLOGY Influ B Negative (09/22/16 2:08 PM) Negative 09/22/2016 [facility] VIRAL - SEROLOGY Influ A Negative (09/22/16 2:08 PM) Negative 09/22/2016 [facility] Chest 2 views DX Chest 2 views DX Patient Name: TD SANDRA : 1940; Age: 76 years Female MR: [id number] Study: Chest 2 views DX Order Time: 09/22/2016 1:33 PM STROKE PROGRAM COORDINATOR Clinical Indication: Chest pain COMPARISON: 03/20/2014 FINDINGS: 2 views of the chest are submitted for evaluation. The mildly prominent cardiac silhouette is unchanged. There is no pneumonia, effusion, or pneumothorax. The bones are diffusely osteopenic. Surgical clips in the right upper abdomen are stable. IMPRESSION: No focal lung disease. SL: WR1-M 09/22/2016 - - Read by: Froy Silva MD Dictated Date/time: 09/22/16 14:32 Electronically Signed by: Froy Silva MD 09/22/16 14:35 FINAL REPORT [facility] Retroperitoneal Complete US Retroperitoneal Complete US EXAM: US RETROPERITONEAL COMPLETE DATE: 09/05/2016 9:31 AM STROKE PROGRAM COORDINATOR INDICATION: LEFT KIDNEY MASS ADDITIONAL INFORMATION: None. COMPARISON: CT abdomen pelvis without contrast on 08/09/2016 at 1234 hours TECHNIQUE: Multiplanar grayscale and color Doppler ultrasound of the kidneys, aorta, IVC and urinary bladder. FINDINGS: Right kidney: Size: 8.8 x 3.8 x 4.1 cm. Hydronephrosis: None. Echogenicity: Normal. Calculi: None. Cysts/Masses: None. Left kidney: Size: 9.6 x 5.4 x 4.8 cm. Hydronephrosis: None. Echogenicity: Normal. Calculi: None. Cysts/Masses: None. Other: A focal extrarenal dilatation of the renal collecting system measuring 3.5 x 2.9 x 2.6 cm is contiguous. Bladder: Partially distended with dependent debris. Other: None. IMPRESSION: 1. Dilatation of the left collecting system at the interpolar region could represent a calyceal diverticulum. This correlates with findings on recent CT exam. 09/05/2016 - - This report was dictated by a [employer] Estimator/Fellow. I have personally reviewed the images as well as the Resident's interpretation and agree with the findings. Read by: Sp Phan MD Resident: Sp Phan MD Dictated Date/time: 09/05/16 10:02 Electronically Signed by: Torsten Chavez MD 09/05/16 16:04 FINAL REPORT [facility] Abdomen/Pelvis wo IV contrast CT Abdomen/Pelvis wo IV contrast CT EXAM: CT ABDOMEN AND PELVIS WITHOUT CONTRAST DATE: 08/09/2016 INDICATION: epigastric pain ADDITIONAL INFORMATION: IV contrast was not administered due to severe iodine ALLERGY COMPARISON: 10/24/2014 TECHNIQUE: Volumetric CT acquisition of the abdomen and pelvis without the intravenous administration contrast. Axial, coronal and sagittal reconstructions. IV contrast: None. Oral contrast: Redicat DLP: 452.62 FINDINGS: Lines and tubes: None. Lower thorax: A 3 -4 mm pulmonary nodules present in the left lower lobe, stable from prior exam. Liver: Normal. Biliary tree: No intra- or extrahepatic biliary ductal dilation. Gallbladder: Removed. The clips create streak artifact. Pancreas: Normal. Spleen: Normal. Adrenals: Normal. Kidneys and ureters: Right kidney: A hypodensity is present off the superior pole of the right kidney medially which is too small to definitely characterize but appears stable from prior exam. Additionally, there is a hyperdense lesion within the anterior mid right kidney (2/33) measuring approximately 11 mm, also stable from prior exam. Left kidney: A hypodense lesion is present off the anterior interpolar right kidney which has Hounsfield units of 10 and contains a small calcification. This has increased in size from previous exam, measuring approximately 3.1 x 3.6 cm previously 1.5 x 1.2 cm. A small exophytic lesion is seen off the inferior left kidney, too small to characterize but also stable from prior. Bladder: Normal. Reproductive organs: No CT abnormality. Gastrointestinal tract: There is asymmetric wall thickening of the gastric fundus. The body and gastric antrum are unremarkable. Small bowel loops are normal in caliber throughout the colon is unremarkable without wall thickening or inflammatory changes. Appendix: Normal Peritoneum and retroperitoneum: No ascites or free fluid is seen. No focal fluid collection. Lymph nodes: No lymphadenopathy is seen. Vasculature: Scattered atherosclerotic vascular calcifications are noted. In particular, there are significant calcifications at the takeoff of the SMA. Bones: No worrisome osseous lesion is seen. There is sclerosis at the sacroiliac joints bilaterally but this is unchanged. Soft tissues: There is stable soft tissue thickening seen just below the umbilicus the anterior abdominal wall which may be due to prior postsurgical changes. A fat-containing right inguinal hernia is noted. IMPRESSION: 1. Asymmetric wall thickening of the stomach is noted which is nonspecific finding on CT scan but could represent gastritis. 2. Hypodense lesions in the kidneys, many which are too small to characterize. One lesion has significantly increased in size in the left kidney although has low attenuation Hounsfield units suggestive of a cyst. Recommend follow-up with renal ultrasound. 3. Stable pulmonary nodule. 4. Scattered atherosclerosis. 5. Status post cholecystectomy. 08/09/2016 - - Read by: Dona Yougn MD Dictated Date/time: 08/09/16 13:29 Electronically Signed by: Dona Young MD 08/09/16 14:03 FINAL REPORT [facility] Digital Mammo Screening Rfeddie MA Digital Mammo Screening Freddie MA - DIGITAL MAMMO SCREENING FREDDIE MA BILATERAL DIGITAL SCREENING MAMMOGRAM WITH CAD: 07/28/2016 CLINICAL: Z12.31. Current study was evaluated with a Computer Aided Detection (CAD) system. Comparison is made to exams dated: 07/27/2015 mammogram and 05/14/2014 mammogram - [facility]. There are scattered fibroglandular densities in both breasts. There are benign appearing vascular calcifications and calcifications in both breasts. There also is a benign appearing intramammary node in the right breast. No significant masses, calcifications, or other findings are seen in either breast. There has been no significant interval change. IMPRESSION: BENIGN There is no mammographic evidence of malignancy. A 1 year screening mammogram is recommended. Professional services are provided by the [facility]. Vladimir Patton M.D. rsl/tea:08/01/2016 10:14:40 Oncology Physician: Cheryl ZAPIEN)(Arnaud), [facility] This exam was dictated and interpreted by [id number] at [facility]. letter sent: Bilateral Benign Mammogram BI-RADS: 2 Benign 07/28/2016 - - Read by: Vladimir Patton MD Dictated Date/time: 08/01/16 10:14 Electronically Signed by: Vladimir Patton MD 08/01/16 10:14 FINAL REPORT [facility] URINE AND STOOL UA Bili Negative *NA* (11/30/15 6:30 PM) Negative 11/30/2015 [facility] URINE AND STOOL UA Urobilinogen 0.2 EU/dL 0.1 - 1.0 11/30/2015 [facility] URINE AND STOOL UA Blood Small *ABN* (11/30/15 6:30 PM) Negative 11/30/2015 [facility] URINE AND STOOL UA Nitrite Negative (11/30/15 6:30 PM) Negative 11/30/2015 [facility] URINE AND STOOL UA Leuk Est Negative (11/30/15 6:30 PM) Negative 11/30/2015 [facility] URINE AND STOOL UA Color Yellow *NA* (11/30/15 6:30 PM) Yellow 11/30/2015 [facility] URINE AND STOOL UA Protein 30 mg/dL Negative mg/dL 11/30/2015 [facility] URINE AND STOOL UA pH 6.5 5.0 - 8.0 11/30/2015 [facility] URINE AND STOOL UA Turbidity Clear (11/30/15 6:30 PM) Clear 11/30/2015 [facility] URINE AND STOOL UA Spec Grav 1.010 <=1.030 11/30/2015 [facility] URINE AND STOOL UA Ketones Negative *NA* (11/30/15 6:30 PM) Negative 11/30/2015 [facility] URINE AND STOOL UA Glucose Negative (11/30/15 6:30 PM) Negative 11/30/2015 [facility] URINE AND STOOL UA Sq Epi Rare /LPF Few /LPF 11/30/2015 [facility] URINE AND STOOL UA WBC None Seen (11/30/15 6:30 PM) None Seen 11/30/2015 [facility] URINE AND STOOL UA Bacteria None Seen (11/30/15 6:30 PM) None Seen 11/30/2015 [facility] URINE AND STOOL UA RBC 3-5 /HPF 0 - 2 11/30/2015 [facility] CARDIAC ENZYMES Troponin-I null 0.00 - 0.40 11/30/2015 [facility] CHEM PANEL Phosphorus 4.8 mg/dL 2.5 - 4.5 11/30/2015 [facility] CHEM PANEL Magnesium Lvl 1.2 mg/dL 1.8 - 2.4 11/30/2015 [facility] ELECTROLYTES AGAP 16.1 meq/L 10.0 - 20.0 11/30/2015 [facility] ELECTROLYTES eGFR 62 mL/min/1.73m2 11/30/2015 Result Comment: The eGFR is calculated using the CKD-EPI formula. In most young, healthy individuals the eGFR will be >90 mL/min/1.73m2. The eGFR declines with age. An eGFR of 60-89 may be normal in some populations, particularly the elderly, for whom the CKD-EPI formula has not been extensively validated. Use of the eGFR is not recommended in the following populations: Individuals with unstable creatinine concentrations, including patients and those with serious co-morbid conditions. Patients with extremes in muscle mass or diet. The data above are obtained from the National Kidney Disease Education Program (NKDEP) which additionally recommends that when the eGFR is used in patients with extremes of body mass index for purposes of drug dosing, the eGFR should be multiplied by the estimated BMI. [facility] ELECTROLYTES CO2 27 meq/L 24 - 32 11/30/2015 [facility] ELECTROLYTES Calcium Lvl 9.4 mg/dL 8.5 - 10.5 11/30/2015 [facility] ELECTROLYTES Chloride Lvl 105 meq/L 95 - 109 11/30/2015 [facility] ELECTROLYTES Potassium Lvl 4.1 meq/L 3.5 - 5.1 11/30/2015 [facility] ELECTROLYTES Creatinine Lvl 0.91 mg/dL 0.50 - 1.40 11/30/2015 [facility] ELECTROLYTES Sodium Lvl 144 meq/L 135 - 145 11/30/2015 [facility] ELECTROLYTES Glucose Lvl 112 mg/dL 70 - 99 11/30/2015 [facility] ELECTROLYTES BUN 18 mg/dL 7 - 22 11/30/2015 [facility] HEMATOLOGY WBC 6.6 K/CMM 3.7 - 10.4 11/30/2015 [facility] HEMATOLOGY MPV 9.5 fL 7.4 - 10.4 11/30/2015 [facility] HEMATOLOGY Platelet 161 K/CMM 133 - 450 11/30/2015 [facility] HEMATOLOGY MCHC 32.9 g/dL 32.0 - 36.0 11/30/2015 [facility] HEMATOLOGY RDW 14.1 % 11.5 - 14.5 11/30/2015 [facility] HEMATOLOGY MCV 88.5 fL 80.0 - 98.0 11/30/2015 [facility] HEMATOLOGY Hgb 11.9 g/dL 12.0 - 16.0 11/30/2015 [facility] HEMATOLOGY MCH 29.1 pg 27.0 - 31.0 11/30/2015 [facility] HEMATOLOGY Hct 36.3 % 36.0 - 48.0 11/30/2015 [facility] HEMATOLOGY RBC 4.10 M/CMM 4.20 - 5.40 11/30/2015 [facility] HEMATOLOGY Eosinophils 0.7 % 0.0 - 4.0 11/30/2015 [facility] HEMATOLOGY Monocytes 5.1 % 2.0 - 12.0 11/30/2015 [facility] HEMATOLOGY Segs 75.2 % 45.0 - 75.0 11/30/2015 [facility] HEMATOLOGY Lymphocytes 18.5 % 20.0 - 40.0 11/30/2015 [facility] HEMATOLOGY Monocytes # 0.3 K/CMM 0.0 - 0.8 11/30/2015 [facility] HEMATOLOGY Lymphocytes # 1.2 K/CMM 1.0 - 5.5 11/30/2015 [facility] HEMATOLOGY Segs-Bands # 4.9 K/CMM 1.5 - 8.1 11/30/2015 [facility] HEMATOLOGY Basophils 0.5 % 0.0 - 1.0 11/30/2015 [facility] Digital Mammo Screening Freddie MA Digital Mammo Screening Freddie MA - DIGITAL MAMMO SCREENING FREDDIE MA BILATERAL DIGITAL SCREENING MAMMOGRAM WITH CAD: 07/27/2015 CLINICAL: Z12.31. Current study was evaluated with a Computer Aided Detection (CAD) system. Comparison is made to exam dated: 05/14/2014 mammogram - [facility]. There are scattered fibroglandular densities in both breasts. There are benign vascular calcifications in both breasts. No significant masses, calcifications, or other findings are seen in either breast. IMPRESSION: BENIGN There is no mammographic evidence of malignancy. A 1 year screening mammogram is recommended. Darcie Hernandez M.D. rn/penrad:07/28/2015 14:54:20 Oncology Physician: Callie Carrera RT(R)(M), [facility] This exam was dictated and interpreted by [address] [place] [address]. letter sent: Bilateral Benign Mammogram BI-RADS: 2 Benign 07/27/2015 - - Read by: Darcie Hernandez MD Dictated Date/time: 07/28/15 14:54 Electronically Signed by: Darcie Hernandez MD 07/28/15 14:54 FINAL REPORT [facility] Abdomen AP DX Abdomen AP DX Abdomen one view: Exam reason: Kidney stones. Retained fecal material is noted scattered throughout the colon. Surgical clips right upper quadrant status post cholecystectomy. Degenerative changes are noted at the sacroiliac joints and pubic symphysis. Marginal spurring is noted at the femoral heads bilaterally. No radiopaque renal calculi are noted overlying the renal shadows. No small bowel dilatation. SL:12 03/17/2015 - - Read by: Elliot Brown MD Dictated Date/time: 03/18/15 07:44 Electronically Signed by: Elliot Brown MD 03/18/15 08:33 FINAL REPORT [facility] Abdomen/Pelvis wo IV contrast CT Abdomen/Pelvis wo IV contrast CT CT scan of the abdomen and pelvis without contrast: Exam reason: flank pain, right side See Clinic Indication Multiple computerized axial tomograms of the abdomen and pelvis were obtained without contrast utilizing renal stone protocol. The use of this protocol may exclude a portion of the upper abdominal viscera. The heart is mild to moderately enlarged associated with minimal pericardial thickening. Coronary artery calcifications are noted. Thoracic and lumbar spondylosis are noted associated with degenerative arthropathy of the lower lumbar apophyseal joints. Surgical clips gallbladder fossa status post cholecystectomy. 7.5 mm calcified splenic artery aneurysm. Renal cortical scarring is noted bilaterally. 9 x 11 mm cyst is noted arising from the lateral cortex of the inferior pole of the left kidney. A 10.4 x 15.2 mm cyst is noted at the ventral cortex of the mid left kidney. Punctate renal calculi are noted at the left kidney similar to the previous exam, 03/09/2014. A 2 x 1 mm calculus is noted at the superior pole of the right kidney. 11 mm cyst is noted arising from the medial cortex of the superior pole of the right kidney. Renal cortical volume loss is noted at the lateral cortex of the mid right kidney. A 12.5 x 11.6 mm mildly hyperdense cyst is noted at the ventral aspect of the mid right k idney abutting the right renal hilus (56 Hounsfield units) similar to the previous exam, 03/09/2014. No obstructive uropathic change is noted. no abdominal ureteral calculus is noted. Focal laxity and attenuation of the ventral abdominal wall in the midline is noted. Small fat filled umbilical hernia is noted. Left paramedian ventral abdominal wall defect is noted measuring 16 mm. The visualized upper abdominal viscera are otherwise unremarkable. No adenopathy or abdominal mass is noted. No free fluid is noted. No pelvic ureteral or bladder calculus is noted. Dystrophic calcification is noted at the uterus likely vascular; otherwise, uterus and adnexa are unremarkable. Bowel wall and mucosal fold thickening are noted at the rectum and sigmoid colon suggesting nonspecific proctocolitis. Small fat filled right inguinal hernia is noted. Nonspecific mild urinary bladder wall thickening is noted. There is no pelvic mass, adenopathy or free fluid noted. IMPRESSION: 1. Renal cysts and calculi are noted at the kidneys bilaterally unchanged from the previous exam, 03/09/2014. No ureteral or bladder calculi are noted. 2. Findings at the abdomen are unchanged from the previous exam. 3. Right inguinal hernia. 4. Bowel wall and mucosal fold thickening are noted at the rectum and sigmoid colon suggesting nonspecific proctocolitis. 5. Nonspecific mild urinary bladder wall thickening is noted. SL:12 10/24/2014 - - Read by: Elliot Brown MD Dictated Date/time: 10/25/14 13:34 Electronically Signed by: Elliot Brown MD 10/25/14 13:45 FINAL REPORT MH OPID [facility] Digital Mammo Screening Freddie [place] Digital Mammo Screening Freddie [place] - DIGITAL MAMMO SCREENING FREDDIE MA BILATERAL DIGITAL SCREENING MAMMOGRAM WITH CAD: 05/14/2014 CLINICAL: Routine. Current study was evaluated with a Computer Aided Detection (CAD) system. No prior exams were available for comparison. There are scattered fibroglandular densities in both breasts. There are benign vascular calcifications in both breasts. No significant masses, calcifications, or other findings are seen in either breast. IMPRESSION: BENIGN There is no mammographic evidence of malignancy. A screening mammogram in one year is recommended. Dr. Paola Jackson M.D., aas/tea:05/18/2014 13:04:52 Oncology Physician: Ernestine ZAPIEN)(M), [facility] This exam was dictated and interpreted by [address] [place] [address]. letter sent: Normal exam Mammogram BI-RADS: 2 Benign 05/14/2014 - - Read by: Paola Jackson MD Dictated Date/time: 05/18/14 13:04 Electronically Signed by: Paola Jacskon MD 05/18/14 13:04 FINAL REPORT OPID [facility] CARDIAC ENZYMES Troponin-I null 0.00 - 0.40 03/20/2014 [facility] CARDIAC ENZYMES Total CK 78 unit/L 12 - 03/20/2014 [facility] CARDIAC ENZYMES CK MB Index 1.2 0.0 - 2.5 03/20/2014 [facility] CARDIAC ENZYMES CK MB 0.9 ng/mL 0.5 - 3.6 03/20/2014 [facility] CHEM PANEL eGFR 64 mL/min/1.73m2 03/20/2014 2Result Comment: The eGFR is calculated using the CKD-EPI formula. In most young, healthy individuals the eGFR will be >90 mL/min/1.73m2. The eGFR declines with age. An eGFR of 60-89 may be normal in some populations, particularly the elderly, for whom the CKD-EPI formula has not been extensively validated. Use of the eGFR is not recommended in the following populations: Individuals with unstable creatinine concentrations, including patients and those with serious co-morbid conditions. Patients with extremes in muscle mass or diet. The data above are obtained from the National Kidney Disease Education Program (NKDEP) which additionally recommends that when the eGFR is used in patients with extremes of body mass index for purposes of drug dosing, the eGFR should be multiplied by the estimated BMI. [facility] CHEM PANEL Creatinine Lvl 0.9 mg/dL 0.5 - 1.4 03/20/2014 [facility] HEMATOLOGY PTT 31.4 s 22.9 - 35.8 03/20/2014 8Interpretive Data: Heparin Therapeutic Range: 57 - 92 Seconds [facility] SPECIAL CHEMISTRY Hgb A1C 7.5 % <=5.6 % 03/20/2014 [facility] CARDIAC ENZYMES Troponin-I null 0.00 - 0.40 03/20/2014 [facility] CARDIAC ENZYMES Total CK 77 unit/L - 03/20/2014 [facility] CARDIAC ENZYMES CK MB Index 0.9 0.0 - 2.5 03/20/2014 [facility] CARDIAC ENZYMES CK MB 0.7 ng/mL 0.5 - 3.6 03/20/2014 [facility] ELECTROLYTES AGAP 12.4 meq/L 10.0 - 20.0 03/20/2014 [facility] ELECTROLYTES eGFR 56 mL/min/1.73m2 03/20/2014 3Result Comment: The eGFR is calculated using the CKD-EPI formula. In most young, healthy individuals the eGFR will be >90 mL/min/1.73m2. The eGFR declines with age. An eGFR of 60-89 may be normal in some populations, particularly the elderly, for whom the CKD-EPI formula has not been extensively validated. Use of the eGFR is not recommended in the following populations: Individuals with unstable creatinine concentrations, including patients and those with serious co-morbid conditions. Patients with extremes in muscle mass or diet. The data above are obtained from the National Kidney Disease Education Program (NKDEP) which additionally recommends that when the eGFR is used in patients with extremes of body mass index for purposes of drug dosing, the eGFR should be multiplied by the estimated BMI. [facility] ELECTROLYTES CO2 29 meq/L 24 - 32 03/20/2014 [facility] ELECTROLYTES Calcium Lvl 9.4 mg/dL 8.5 - 10.5 03/20/2014 [facility] ELECTROLYTES Potassium Lvl 4.4 meq/L 3.5 - 5.1 03/20/2014 [facility] ELECTROLYTES Chloride Lvl 108 meq/L 95 - 109 03/20/2014 [facility] ELECTROLYTES BUN 15 mg/dL 7 - 22 03/20/2014 [facility] ELECTROLYTES Sodium Lvl 145 meq/L 135 - 145 03/20/2014 [facility] ELECTROLYTES Creatinine Lvl 1.0 mg/dL 0.5 - 1.4 03/20/2014 [facility] ELECTROLYTES Glucose Lvl 146 mg/dL 70 - 99 03/20/2014 5Interpretive Data: Adult reference range values reflect the clinical guidelines of the [place] [employer]. [facility] HEMATOLOGY Segs 69.4 % 45.0 - 75.0 03/20/2014 [facility] HEMATOLOGY Monocytes 6.0 % 2.0 - 12.0 03/20/2014 [facility] HEMATOLOGY Lymphocytes 24.0 % 20.0 - 40.0 03/20/2014 [facility] HEMATOLOGY Basophils # 0.0 K/CMM 0.0 - 0.2 03/20/2014 [facility] HEMATOLOGY Eosinophils # 0.0 K/CMM 0.0 - 0.5 03/20/2014 [facility] HEMATOLOGY Basophils 0.3 % 0.0 - 1.0 03/20/2014 [facility] HEMATOLOGY Eosinophils 0.3 % 0.0 - 4.0 03/20/2014 [facility] Lymphocytes # 1.5 K/CMM 1.0 - 5.5 03/20/2014 [facility] Segs-Bands # 4.4 K/CMM 1.5 - 8.1 03/20/2014 [facility] Monocytes # 0.4 K/CMM 0.0 - 0.8 03/20/2014 [facility] MPV 9.4 fL 7.4 - 10.4 03/20/2014 [facility] RBC 3.58 M/CMM 4.20 - 5.40 03/20/2014 [facility] Platelet 142 K/CMM 133 - 450 03/20/2014 [facility] MCV 89.3 fL 80.0 - 98.0 03/20/2014 [facility] MCH 29.4 pg 27.0 - 31.0 03/20/2014 [facility] Hct 32.0 % 36.0 - 48.0 03/20/2014 [facility] MCHC 32.9 g/dL 32.0 - 36.0 03/20/2014 [facility] RDW 13.5 % 11.5 - 14.5 03/20/2014 [facility] Hgb 10.5 g/dL 12.0 - 16.0 03/20/2014 [facility] WBC 6.4 K/CMM 3.7 - 10.4 03/20/2014 [facility] DRUG SCREEN U Amph Scr Negative *NA* (03/20/14 4:55 AM) Negative 03/20/2014 [facility] DRUG SCREEN U Ela Scr Negative *NA* (03/20/14 4:55 AM) Negative 03/20/2014 [facility] DRUG SCREEN U Cannab Scr Negative *NA* (03/20/14 4:55 AM) Negative 03/20/2014 [facility] DRUG SCREEN U Benzodia Scr Negative *NA* (03/20/14 4:55 AM) Negative 03/20/2014 [facility] DRUG SCREEN U Cocaine Scr Negative *NA* (03/20/14 4:55 AM) Negative 03/20/2014 [facility] DRUG SCREEN UDS Note See Note 7 *NA* (03/20/14 4:55 AM) 03/20/2014 7Interpretive Data: Drugs reported as positive have not been confirmed by a second method and should be used for medical purposes only. To order confirmation, contact laboratory. note: Below are cut-off concentrations for all urine drugs of abuse performed in the laboratory. Some drugs listed in the table may not be included in this panel. Description Cut-off concentration Amphetamine 1000 ng/mL Barbiturates 200 ng/mL Benzodiazepines 300 ng/mL Cocaine metabolites 300 ng/mL Opiates 300 ng/mL Phencyclidine 25 ng/mL Propoxyphene 300 ng/mL Marijuana metabolites 50 ng/mL Methadone 300 ng/mL Urine alcohol 20 mg/dL [facility] DRUG SCREEN U Opiate Scr Negative *NA* (03/20/14 4:55 AM) Negative 03/20/2014 [facility] DRUG SCREEN U Phencyc Scr Negative *NA* (03/20/14 4:55 AM) Negative 03/20/2014 [facility] CARDIAC ENZYMES Troponin-I null 0.00 - 0.40 03/20/2014 [facility] CARDIAC ENZYMES CK MB 0.8 ng/mL 0.5 - 3.6 03/20/2014 [facility] CARDIAC ENZYMES Total CK 125 unit/L 12 - 191 03/20/2014 [facility] CARDIAC ENZYMES CK MB Index 0.6 0.0 - 2.5 03/20/2014 [facility] CHEM PANEL eGFR 64 mL/min/1.73m2 03/20/2014 4Result Comment: The eGFR is calculated using the CKD-EPI formula. In most young, healthy individuals the eGFR will be >90 mL/min/1.73m2. The eGFR declines with age. An eGFR of 60-89 may be normal in some populations, particularly the elderly, for whom the CKD-EPI formula has not been extensively validated. Use of the eGFR is not recommended in the following populations: Individuals with unstable creatinine concentrations, including patients and those with serious co-morbid conditions. Patients with extremes in muscle mass or diet. The data above are obtained from the National Kidney Disease Education Program (NKDEP) which additionally recommends that when the eGFR is used in patients with extremes of body mass index for purposes of drug dosing, the eGFR should be multiplied by the estimated BMI. [facility] CHEM PANEL B/C Ratio 18 6 - 25 03/20/2014 [facility] CHEM PANEL Total Protein 7.5 g/dL 6.4 - 8.4 03/20/2014 [facility] CHEM PANEL Albumin Lvl 3.6 g/dL 3.5 - 5.0 03/20/2014 [facility] CHEM PANEL Globulin 3.9 g/dL 2.0 - 4.0 03/20/2014 [facility] CHEM PANEL A/G Ratio 0.9 0.7 - 1.6 03/20/2014 [facility] CHEM PANEL ALT 25 unit/L 0 - 65 03/20/2014 [facility] CHEM PANEL AST 23 unit/L 0 - 37 03/20/2014 [facility] CHEM PANEL Alk Phos 51 unit/L 39 - 136 03/20/2014 [facility] CHEM PANEL Bili Total 0.4 mg/dL 0.2 - 1.3 03/20/2014 [facility] CHEM PANEL Creatinine Lvl 0.9 mg/dL 0.5 - 1.4 03/20/2014 [facility] CHEM PANEL BUN 16 mg/dL 7 - 22 03/20/2014 [facility] CHEM PANEL Glucose Lvl 154 mg/dL 70 - 99 03/20/2014 6Interpretive Data: Adult reference range values reflect the clinical guidelines of the [place] [employer]. [facility] CHEM PANEL CO2 32 meq/L 24 - 32 03/20/2014 [facility] CHEM PANEL AGAP 7.5 meq/L 10.0 - 20.0 03/20/2014 [facility] CHEM PANEL Sodium Lvl 139 meq/L 135 - 145 03/20/2014 [facility] CHEM PANEL Potassium Lvl 4.5 meq/L 3.5 - 5.1 03/20/2014 1Result Comment: Specimen slightly hemolyz. [facility] CHEM PANEL Calcium Lvl 9.2 mg/dL 8.5 - 10.5 03/20/2014 [facility] CHEM PANEL Chloride Lvl 104 meq/L 95 - 109 03/20/2014 [facility] HEMATOLOGY MCH 29.7 pg 27.0 - 31.0 03/20/2014 [facility] HEMATOLOGY MCV 87.3 fL 80.0 - 98.0 03/20/2014 [facility] HEMATOLOGY MPV 10.4 fL 7.4 - 10.4 03/20/2014 [facility] HEMATOLOGY WBC 6.0 K/CMM 3.7 - 10.4 03/20/2014 [facility] HEMATOLOGY Hgb 11.1 g/dL 12.0 - 16.0 03/20/2014 [facility] HEMATOLOGY RBC 3.72 M/CMM 4.20 - 5.40 03/20/2014 [facility] HEMATOLOGY Hct 32.5 % 36.0 - 48.0 03/20/2014 [facility] MCHC 34.1 g/dL 32.0 - 36.0 03/20/2014 [facility] RDW 13.7 % 11.5 - 14.5 03/20/2014 [facility] Platelet 151 K/CMM 133 - 450 03/20/2014 [facility] Basophils # 0.0 K/CMM 0.0 - 0.2 03/20/2014 [facility] Eosinophils # 0.1 K/CMM 0.0 - 0.5 03/20/2014 [facility] Monocytes # 0.2 K/CMM 0.0 - 0.8 03/20/2014 [facility] Lymphocytes # 1.4 K/CMM 1.0 - 5.5 03/20/2014 [facility] Segs-Bands # 4.3 K/CMM 1.5 - 8.1 03/20/2014 [facility] Basophils 0.3 % 0.0 - 1.0 03/20/2014 [facility] Eosinophils 1.2 % 0.0 - 4.0 03/20/2014 [facility] Monocytes 4.2 % 2.0 - 12.0 03/20/2014 [facility] Lymphocytes 22.6 % 20.0 - 40.0 03/20/2014 [facility] Segs 71.7 % 45.0 - 75.0 03/20/2014 [facility] Chest 1view Chest 1view Chest one view: Exam reason: See Clinic Indication Chest pain A few scattered interstitial opacities are noted bilaterally, nonspecific, likely chronic. The cardiac silhouette is mildly enlarged. Chronic uncoiling of the thoracic aorta is noted associated with vascular calcification. There is no consolidation or pleural fluid collection noted. Marginal spurring is noted at the thoracic spine. Degenerative changes are noted at the shoulders bilaterally. The central hilar pulmonary arterial vasculature is prominent bilaterally suggestive of pulmonary arterial hypertension. IMPRESSION: No acute cardiopulmonary process noted. SL:03/20/2014 - - Read by: Elliot Brown MD Dictated Date/time: 03/20/14 02:21 Electronically Signed by: Elliot Brown MD 03/20/14 02:22 FINAL REPORT [facility] Abdomen wo IV contrast CT Abdomen wo IV contrast CT CT ABDOMEN WITHOUT CONTRAST: TECHNIQUE: The exam was done with oral contrast only due to a history of IV contrast allergy. FINDINGS: Multiple small complex renal cysts are noted and unchanged from 01/29/2013. There is focal scarring in the right mid kidney, also unchanged. Small bilateral calyceal stones are noted. There is no evidence of hydronephrosis. No other significant renal abnormalities are seen. The liver shows no focal abnormality. The gallbladder has been removed. There is no evidence of biliary dilatation the spleen, pancreas and adrenal glands show no significant abnormalities. The visible GI tract is unremarkable. The subcentimeter nodule in the left lower lobe is unchanged. There is no other significant change from the previous exam. IMPRESSION: 1. Stable small complex cysts in both kidneys. 2. No other acute CT abnormalities in the abdomen. SL:13 03/09/2014 - - Read by: Chuy Harden MD Dictated Date/time: 03/10/14 14:24 Electronically Signed by: Chuy Harden MD 03/10/14 14:29 FINAL REPORT [facility] Vital Signs Vital Sign Value Date Comments Source Height 144.78 cm 01/07/2018 [facility] Systolic (mm Hg) 139 01/07/2018 [facility] Diastolic (mm Hg) 58 01/07/2018 [facility] Heart Rate 74 01/07/2018 [facility] Weight 60.909 10/11/2017 [facility] BMI Calculated 31.21 10/11/2017 [facility] Height 139.7 cm 10/11/2017 [facility] Systolic (mm Hg) 118 10/11/2017 [facility] Diastolic (mm Hg) 57 10/11/2017 [facility] Heart Rate 70 10/11/2017 [facility] Respitory Rate 20 09/18/2017 [facility] Systolic (mm Hg) 147 09/18/2017 [facility] Diastolic (mm Hg) 70 09/18/2017 [facility] Heart Rate 77 09/18/2017 [facility] Temperature Oral (F) 99.1 F 09/18/2017 [facility] Weight 61.364 09/18/2017 [facility] Temperature Oral (F) 98.3 F 09/18/2017 [facility] Heart Rate 85 09/18/2017 [facility] Respitory Rate 20 09/18/2017 [facility] Systolic (mm Hg) 135 09/18/2017 [facility] Diastolic (mm Hg) 68 09/18/2017 [facility] Systolic (mm Hg) 137 06/12/2017 [facility] Diastolic (mm Hg) 56 06/12/2017 [facility] Height 139.7 cm 06/12/2017 [facility] Heart Rate 61 06/12/2017 [facility] BMI Calculated 31.21 06/12/2017 [facility] Weight 60.909 06/12/2017 [facility] Temperature Oral (F) 97.6 F 06/12/2017 [facility] Systolic (mm Hg) 137 04/28/2017 [facility] Diastolic (mm Hg) 60 04/28/2017 [facility] Respitory Rate 18 04/28/2017 [facility] Temperature Oral (F) 98.2 F 04/28/2017 [facility] Heart Rate 68 04/28/2017 [facility] Temperature Oral (F) 98.3 F 04/28/2017 [facility] Systolic (mm Hg) 147 04/28/2017 [facility] Diastolic (mm Hg) 60 04/28/2017 [facility] Respitory Rate 18 04/28/2017 [facility] Heart Rate 65 04/28/2017 [facility] Temperature Oral (F) 98.2 F 04/28/2017 [facility] Systolic (mm Hg) 135 04/28/2017 [facility] Diastolic (mm Hg) 56 04/28/2017 [facility] Respitory Rate 18 04/28/2017 [facility] Heart Rate 77 04/28/2017 [facility] Height 139.7 cm 04/28/2017 [facility] Weight 56.818 04/28/2017 [facility] BMI Calculated 29.11 04/28/2017 [facility] Weight 56.818 04/27/2017 [facility] BMI Calculated 23.67 04/27/2017 [facility] Height 154.94 cm 04/27/2017 [facility] Systolic (mm Hg) 119 03/03/2017 [facility] Diastolic (mm Hg) 64 03/03/2017 [facility] Heart Rate 48 03/03/2017 [facility] Temperature Oral (F) 97.6 F 03/03/2017 [facility] Respitory Rate 16 03/03/2017 [facility] Temperature Oral (F) 97.8 F 03/03/2017 [facility] Heart Rate 57 03/03/2017 [facility] Respitory Rate 16 03/03/2017 [facility] Systolic (mm Hg) 116 03/03/2017 [facility] Diastolic (mm Hg) 61 03/03/2017 [facility] Systolic (mm Hg) 134 03/03/2017 [facility] Diastolic (mm Hg) 78 03/03/2017 [facility] Respitory Rate 16 03/03/2017 [facility] Heart Rate 60 03/03/2017 [facility] Temperature Oral (F) 97.8 F 03/03/2017 [facility] Weight 60.455 03/02/2017 [facility] BMI Calculated 27.86 03/02/2017 [facility] Height 147.32 cm 03/02/2017 [facility] Respitory Rate 20 09/22/2016 [facility] Systolic (mm Hg) 150 09/22/2016 [facility] Diastolic (mm Hg) 69 09/22/2016 [facility] Temperature Oral (F) 98 F 09/22/2016 [facility] Heart Rate 94 09/22/2016 [facility] Heart Rate 64 09/22/2016 [facility] Respitory Rate 18 09/22/2016 [facility] Systolic (mm Hg) 144 09/22/2016 [facility] Diastolic (mm Hg) 61 09/22/2016 [facility] Temperature Oral (F) 98.5 F 09/22/2016 [facility] Weight 63.636 09/22/2016 [facility] Systolic (mm Hg) 133 12/01/2015 [facility] Diastolic (mm Hg) 75 12/01/2015 [facility] Heart Rate 57 12/01/2015 [facility] Temperature Oral (F) 97.6 F 12/01/2015 [facility] Respitory Rate 24 12/01/2015 [facility] Systolic (mm Hg) 150 12/01/2015 [facility] Diastolic (mm Hg) 59 12/01/2015 [facility] Respitory Rate 22 12/01/2015 [facility] Systolic (mm Hg) 150 12/01/2015 [facility] Diastolic (mm Hg) 67 12/01/2015 [facility] Respitory Rate 16 12/01/2015 [facility] BMI Calculated 30.28 11/30/2015 [facility] Weight 59.091 11/30/2015 [facility] Heart Rate 84 11/30/2015 [facility] Temperature Oral (F) 97.9 F 11/30/2015 [facility] Height 139.7 cm 11/30/2015 [facility] Temperature Oral (F) 98.2 F 03/21/2014 [facility] Respitory Rate 20 03/21/2014 [facility] Heart Rate 102 03/21/2014 [facility] Systolic (mm Hg) 167 03/21/2014 [facility] Diastolic (mm Hg) 72 03/21/2014 [facility] Heart Rate 65 03/20/2014 [facility] Diastolic (mm Hg) 71 03/20/2014 [facility] Systolic (mm Hg) 135 03/20/2014 [facility] Respitory Rate 20 03/20/2014 [facility] Temperature Oral (F) 98.7 F 03/20/2014 [facility] Diastolic (mm Hg) 68 03/20/2014 [facility] Temperature Oral (F) 98.1 F 03/20/2014 [facility] Respitory Rate 20 03/20/2014 [facility] Systolic (mm Hg) 147 03/20/2014 [facility] Heart Rate 64 03/20/2014 [facility] BMI Calculated 27.64 03/20/2014 [facility] Weight 64.2 03/20/2014 [facility] Height 152.4 cm 03/20/2014 [facility] BMI Calculated 32.61 03/20/2014 [facility] Weight 63.636 03/20/2014 [facility] Height 139.7 cm 03/20/2014 [facility] Encounters Location Location Details Encounter Type Encounter Number Reason For Visit Attending Provider ADM Date DC Date Status Source [facility] Outpatient [id number] Ellen Cristina 03/09/2014 03/10/2014 [facility] OBS Observation Patient [id number] Yony Phan 03/20/2014 03/21/2014 [facility] Outpatient Imaging [facility] Outpatient [id number] Waldemar Ruibal 05/14/2014 05/15/2014 [facility] Outpatient Imaging [facility] Outpt Diag Services [id number] Torsten Benoit 10/24/2014 10/25/2014 [facility] Outpt Diag Services [id number] Torsten Benoit 03/17/2015 03/18/2015 [facility] Outpatient [id number] Waldemar Ruibal 07/27/2015 07/28/2015 [facility] [id number] Petra Godfrey 11/30/2015 12/01/2015 [facility] Outpatient Imaging [facility] Outpatient [id number] Waldemar Ruibal 07/28/2016 07/29/2016 [facility] Outpatient [id number] Cindi Miranda 08/01/2016 08/01/2016 [facility] [place] Outpt Diag Services [id number] Cindi Ruben 08/09/2016 08/10/2016 [facility] Outpatient [id number] Cindi Ruben 09/05/2016 09/06/2016 [facility] Emergency [id number] Trevon Prakash 09/22/2016 09/22/2016 [facility] Observation [id number] Yony Phan 03/02/2017 03/03/2017 [facility] Observation [id number] Vincentia Nwadike 04/27/2017 04/28/2017 [facility] Outpatient [id number] TABITHA MYERS 06/12/2017 [facility] Cardiology [facility] Outpatient [id number] Yony Phan 06/12/2017 06/13/2017 [facility] [id number] OTHER VISIT 07/27/2017 [facility] Cardiology [facility] Outpatient [id number] Yony Phan 07/27/2017 07/28/2017 [facility] Emergency [id number] Marie Zaragoza 09/18/2017 09/18/2017 [facility] Outpatient [id number] OTHER VISIT 09/27/2017 [facility] Cardiology [facility] Ambulatory Pre-Reg [id number] Yony Phan 09/27/2017 09/27/2017 [facility] Outpatient [id number] TABITHA MYERS 10/11/2017 [facility] Cardiology [facility] Outpatient [id number] Yony Phan 10/11/2017 10/12/2017 [facility] Outpatient [id number] TABITHA MYERS 01/07/2018 [facility] Cardiology [facility] Outpatient [id number] Tabitha Myers 01/07/2018 01/08/2018 [facility] Outpatient [id number] TABITHA MYERS 01/06/2019 [facility] Procedures Procedure Code Date Perfomer Comments Source section [id number] OPID [facility] Cholecystectomy [id number] MH OPID [facility] section [id number] [facility] Cholecystectomy [id number] [facility] section [id number] [facility] Cholecystectomy [id number] [facility] section [id number] [facility] Cholecystectomy [id number] [facility] Removal of urethral stone [id number] [facility] Removal of urethral stone [id number] [facility] section [id number] [facility] Cholecystectomy [id number] [facility]
--- OUTSIDE RECORDS SUMMARY | 2018-12-16 14:46 | XMS REPORT | Summary of Care ---
Author Author [facility] Outpatient Imaging [facility] Outpatient [facility] Address Unknown Phone Unavailable Encounter [email or web address](FIN) [id number] Date(s): 03/17/15 - 03/17/15 [facility] Outpatient Imaging [facility] [address] [place] [address] [place], [place] [address]- [phone] Discharge Disposition: Home Attending Physician: Torsten Benoit MD Vital Signs No data available for this section Problem List Condition Effective Dates Status Health Status Informant Diabetes(Confirmed) Active Hypertension(Confirm Active ed) Allergies, Adverse Reactions, Alerts Substance Reaction Severity Status adenosine Active contrast media Active (iodine-based) Medications No data available for this section Results No data available for this section Immunizations No data available for this section Procedures Procedure Date Related Diagnosis Body Site section Cholecystectomy Social History Social History Type Response Alcohol Never, Previous treatment: None. Smoking Status Never smoker; Exposure to Tobacco Smoke None; Cigarette Smoking Last 365 Days No; Reg Smoking Cessation Counseling Yes Assessment and Plan No data available for this section
--- OUTSIDE RECORDS SUMMARY | 2018-12-16 14:46 | XMS REPORT | Summary of Care ---
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 (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) - 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 (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) - Discharge Disposition: Home or Self Care Attending Physician: Marie Zaragoza DO Vital Signs Most recent to 1 2 oldest [Reference Range]: Temperature Oral 99.1 DegF 98.3 DegF [96.4-99.1 DegF] (09/17/17 11:50 PM) (09/17/17 8:48 PM) Blood Pressure 147/70 mmHg 135/68 mmHg [90-140/60-90 mmHg] *HI* (09/17/17 8:48 PM) (09/17/17 11:50 PM) Respiratory Rate 20 BRMIN 20 BRMIN [14-20 BRMIN] (09/17/17 11:50 PM) (09/17/17 8:48 PM) Peripheral Pulse 77 bpm 85 bpm Rate [60-100 bpm] (09/17/17 11:50 PM) (09/17/17 8:48 PM) Weight 61.364 kg (09/17/17 8:48 PM) Problem List Condition Effective Dates Status Health Status Informant Chronic Resolved gastritis(Confirmed) Diabetes(Confirmed) Active Hypertension(Confirm Active ed) Simple Active obesity(Confirmed) Osteoarthritis of Resolved back(Confirmed) Allergies, Adverse Reactions, Alerts Substance Reaction Severity Status adenosine Active contrast media Active (iodine-based) Medications albuterol 90 mcg/inh inhalation aerosol 2 puff, INHALATION, Q6H, PRN for wheezing, # 9 gm, 0 Refill(s) Start Date: 09/18/17 Status: Ordered Results ELECTROLYTES Most recent to 1 oldest [Reference Range]: Sodium Lvl [135-145 138 mEq/L mEq/L] (09/17/17 10:35 PM) Potassium Lvl 4.0 mEq/L [3.5-5.1 mEq/L] (09/17/17 10:35 PM) Chloride Lvl [95-109 104 mEq/L mEq/L] (09/17/17 10:35 PM) CO2 [24-32 mEq/L] 26 mEq/L (09/17/17 10:35 PM) AGAP [10.0-20.0 12.0 mEq/L mEq/L] (09/17/17 10:35 PM) CHEM PANEL Most recent to 1 oldest [Reference Range]: Creatinine Lvl 1.00 mg/dL [0.50-1.40 mg/dL] (09/17/17 10:35 PM) eGFR 54 mL/min/1.73m2 1 *NA* (09/17/17 10:35 PM) BUN [7-22 mg/dL] 18 mg/dL (09/17/17 10:35 PM) Glucose Lvl [70-99 180 mg/dL mg/dL] *HI* (09/17/17 10:35 PM) Calcium Lvl 9.0 mg/dL [8.5-10.5 mg/dL] (09/17/17 10:35 PM) 1Result Comment: The eGFR is calculated using the [...] from the National Kidney Disease Education Program ( NKDEP) which additionally recommends that when the eGFR is used in patients with extremes of body mass index for purposes of drug dosing, the eGFR should be mul tiplied by the estimated BMI. HEMATOLOGY Most recent to 1 oldest [Reference Range]: WBC [3.7-10.4 K/CMM] 5.8 K/CMM (09/17/17 10:35 PM) RBC [4.20-5.40 3.45 M/CMM M/CMM] *LOW* (09/17/17 10:35 PM) Hgb [12.0-16.0 g/dL] 10.3 g/dL *LOW* (09/17/17 10:35 PM) Hct [36.0-48.0 %] 31.4 % *LOW* (09/17/17 10:35 PM) MCV [80.0-98.0 fL] 90.9 fL (09/17/17 10:35 PM) MCH [27.0-31.0 pg] 29.8 pg (09/17/17 10:35 PM) MCHC [32.0-36.0 32.8 g/dL g/dL] (09/17/17 10:35 PM) RDW [11.5-14.5 %] 14.1 % (09/17/17 10:35 PM) MPV [7.4-10.4 fL] 9.2 fL (09/17/17 10:35 PM) Platelet [133-450 137 K/CMM K/CMM] (09/17/17 10:35 PM) Segs [45.0-75.0 %] 71.4 % (09/17/17 10:35 PM) Lymphocytes 19.0 % [20.0-40.0 %] *LOW* (09/17/17 10:35 PM) Monocytes [2.0-12.0 8.3 % %] (09/17/17 10:35 PM) Eosinophils [0.0-4.0 0.8 % %] (09/17/17 10:35 PM) Basophils [0.0-1.0 0.5 % %] (09/17/17 10:35 PM) Segs-Bands # 4.1 K/CMM [1.5-8.1 K/CMM] (09/17/17 10:35 PM) Lymphocytes # 1.1 K/CMM [1.0-5.5 K/CMM] (09/17/17 10:35 PM) Monocytes # [0.0-0.8 0.5 K/CMM K/CMM] (09/17/17 10:35 PM) Eosinophils # 0.0 K/CMM [0.0-0.5 K/CMM] (09/17/17 10:35 PM) Basophils # [0.0-0.2 0.0 K/CMM K/CMM] (09/17/17 10:35 PM) RAPID Most recent to 1 oldest [Reference Range]: Grp A Strep Scr Negative [Negative] (09/17/17 10:35 PM) VIRAL - SEROLOGY Most recent to 1 oldest [Reference Range]: Influ A [Negative] Negative (09/17/17 10:35 PM) Influ B [Negative] Negative (09/17/17 10:35 PM) Immunizations Not Given Vaccine Date Status Refusal Reason influenza virus vaccine, inactivated1 04/28/17 Not Given Patient Refuses 1Result Comment: Patient refused. Will take the vaccine when ready, probably will take at doctors office Procedures Procedure Date Related Diagnosis Body Site Status section Completed Cholecystectomy Completed Removal of urethral stone Completed Social History Social History Type Response Alcohol Never, Previous treatment: None. Smoking Status Never smoker; Exposure to Tobacco Smoke None; Cigarette Smoking Last 365 Days No; Reg Smoking Cessation Counseling No entered on: 10/11/17 Assessment and Plan No data available for this section
--- OUTSIDE RECORDS SUMMARY | 2018-12-16 14:46 | XMS REPORT | Summary of Care ---
Author Author [facility] Organization [facility] Address Unknown Phone Unavailable Encounter ISRAEL Ross(SOO) [id number] Date(s): 04/27/17 - 04/28/17 [facility] [address] [place] [address]- Discharge Disposition: Home or Self Care Attending Physician: Aldo Ortega MD Admitting Physician: Aldo Ortega MD Vital Signs 1 2 3 Most recent to oldest [Reference Range]: 139.7 cm (04/27/17 10:50 PM) 154.94 cm (04/27/17 4:49 PM) Height 98.2 DegF (04/28/17 4:01 PM) 98.3 DegF (04/28/17 11:01 AM) 98.2 DegF (04/28/17 7:01 AM) Temperature Oral [96.4-99.1 DegF] 137/60 mmHg (04/28/17 4:01 PM) 147/60 mmHg *HI* (04/28/17 11:01 AM) 135/56 mmHg (04/28/17 7:01 AM) Blood Pressure [90-140/60-90 mmHg] 18 BRMIN (04/28/17 4:01 PM) 18 BRMIN (04/28/17 11:01 AM) 18 BRMIN (04/28/17 7:01 AM) Respiratory Rate [14-20 BRMIN] 68 bpm (04/28/17 4:01 PM) 65 bpm (04/28/17 11:01 AM) 77 bpm (04/28/17 7:01 AM) Peripheral Pulse Rate [60-100 bpm] 56.818 kg (04/27/17 10:50 PM) 56.818 kg (04/27/17 4:49 PM) Weight 29.11 m2 (04/27/17 10:50 PM) 23.67 m2 (04/27/17 4:49 PM) Body Mass Index Problem List Condition Effective Dates Status Health Status Informant Chronic Resolved gastritis(Confirmed) Diabetes(Confirmed) Active Hypertension(Confirm Active ed) Osteoarthritis of Resolved back(Confirmed) Allergies, Adverse Reactions, Alerts Substance Reaction Severity Status adenosine Active contrast media Active (iodine-based) Medications aspirin 325 mg tablet 325 mg, Route: PO, Drug form: TAB, ONCE, Dosing Weight 56.818, kg, Priority: STA T, Start date: 04/27/17 19:23:00 CDT, Stop date: 04/27/17 19:23:00 CDT Start Date: 04/27/17 Stop Date: 04/27/17 Status: Completed aspirin 81 mg tablet, enteric coated 81 mg, 1 tab, Route: PO, Drug form: ECTAB, Daily, Dosing Weight 56.818, kg, Star t date: 04/28/17 9:00:00 CDT, Duration: 30 day, Stop date: 05/27/17 9:00:00 CDT Notes: Do not crush or chew.(Same As: Ecotrin) Start Date: 04/28/17 Stop Date: 04/29/17 Status: Discontinued Aspirin Enteric Coated 81 mg oral delayed release tablet 81 mg=1 tab, PO, Daily, 0 Refill(s) Start Date: 04/28/17 Status: Ordered BD Normal Saline Flush 10 mL, Route: IVP, Drug Form: INJ, PRN, PRN Line Flush, Start date: 04/27/17 20: 40:00 CDT, Duration: 30 day, Stop date: 05/27/17 20:39:00 CDT Notes: (Same as: BD Posiflush) Start Date: 04/27/17 Stop Date: 04/27/17 Status: Discontinued Dextrose 50% Syringe 12.5 gm, 25 mL, Route: IVP, Drug Form: INJ, Dosing Weight 56.818, kg, PRN, PRN B lood Glucose Results, Start date: 04/28/17 14:42:00 CDT, Duration: 30 day, Stop date: 05/28/17 14:41:00 CDT Start Date: 04/28/17 Stop Date: 04/29/17 Status: Discontinued Dextrose 50% Syringe 25 gm, 50 mL, Route: IVP, Drug Form: INJ, Dosing Weight 56.818, kg, PRN, PRN Blo od Glucose Results, Start date: 04/28/17 14:42:00 CDT, Duration: 30 day, Stop da te: 05/28/17 14:41:00 CDT Start Date: 04/28/17 Stop Date: 04/29/17 Status: Discontinued glimepiride 4 mg, Route: PO, Daily, Dosing Weight 56.818, kg, Start date: 04/29/17 9:00:00 C DT, Duration: 30 day, Stop date: 05/28/17 9:00:00 CDT Start Date: 04/29/17 Stop Date: 04/28/17 Status: Deleted glucagon 1 mg, Route: IM, Drug form: PDR/INJ, PRN, Dosing Weight 56.818, kg, PRN Blood Gl ucose Results, Start date: 04/28/17 14:42:00 CDT, Duration: 30 day, Stop date: 14:41:00 CDT Start Date: 04/28/17 Stop Date: 04/29/17 Status: Discontinued Glucotrol 10 mg, 1 tab, Route: PO, Drug form: TAB, BID, Start date: 04/28/17 17:00:00 CDT, Duration: 30 day, Stop date: 05/28/17 9:00:00 CDT Notes: (Same as: Glucotrol) 30 min before meals. Start Date: 04/28/17 Stop Date: 04/29/17 Status: Discontinued insulin lispro 8 unit, 0.08 mL, Route: SUB-Q, Drug form: SOLN, TID-Before Meals, Dosing Weight 56.818, kg, PRN Blood Glucose Results, Start date: 04/28/17 14:42:00 CDT, Durati on: 30 day, Stop date: 05/28/17 14:41:00 CDT Notes: Roll in palms of hands gently; Do not shake `vigorously. (Same as: Efrain og )"Single Patient Use Only "WASTE: F/P - Black; E - Municipal Trash Bin Stabl e for 28 days at room temperature.Expires in days from Date Start Date: 04/28/17 Stop Date: 04/29/17 Status: Discontinued insulin lispro 6 unit, 0.06 mL, Route: SUB-Q, Drug form: SOLN, TID-Before Meals, Dosing Weight 56.818, kg, PRN Blood Glucose Results, Start date: 04/28/17 14:42:00 CDT, Durati on: 30 day, Stop date: 05/28/17 14:41:00 CDT Notes: Roll in palms of hands gently; Do not shake `vigorously. (Same as: Humal og )"Single Patient Use Only "WASTE: F/P - Black; E - Municipal Trash Bin Stabl e for 28 days at room temperature.Expires in days from Date Start Date: 04/28/17 Stop Date: 04/29/17 Status: Discontinued insulin lispro 10 unit, 0.1 mL, Route: SUB-Q, Drug form: SOLN, TID-Before Meals, Dosing Weight 56.818, kg, PRN Blood Glucose Results, Start date: 04/28/17 14:42:00 CDT, Durati on: 30 day, Stop date: 05/28/17 14:41:00 CDT Notes: Roll in palms of hands gently; Do not shake `vigorously. (Same as: Humal og )"Single Patient Use Only "WASTE: F/P - Black; E - Municipal Trash Bin Stabl e for 28 days at room temperature.Expires in days from Date Start Date: 04/28/17 Stop Date: 04/29/17 Status: Discontinued insulin lispro 2 unit, 0.02 mL, Route: SUB-Q, Drug form: SOLN, TID-Before Meals, Dosing Weight 56.818, kg, PRN Blood Glucose Results, Start date: 04/28/17 14:42:00 CDT, Durati on: 30 day, Stop date: 05/28/17 14:41:00 CDT Notes: Roll in palms of hands gently; Do not shake `vigorously. (Same as: Humal og )"Single Patient Use Only "WASTE: F/P - Black; E - Municipal Trash Bin Stabl e for 28 days at room temperature.Expires in days from Date Start Date: 04/28/17 Stop Date: 04/29/17 Status: Discontinued insulin lispro 4 unit, 0.04 mL, Route: SUB-Q, Drug form: SOLN, TID-Before Meals, Dosing Weight 56.818, kg, PRN Blood Glucose Results, Start date: 04/28/17 14:42:00 CDT, Durati on: 30 day, Stop date: 05/28/17 14:41:00 CDT Notes: Roll in palms of hands gently; Do not shake `vigorously. (Same as: Efrain og )"Single Patient Use Only "WASTE: F/P - Black; E - Municipal Trash Bin Stabl e for 28 days at room temperature.Expires in days from Date Start Date: 04/28/17 Stop Date: 04/29/17 Status: Discontinued insulin lispro 1 unit, 0.01 mL, Route: SUB-Q, Drug form: SOLN, Bedtime, Dosing Weight 56.818, k g, PRN Blood Glucose Results, Start date: 04/28/17 14:42:00 CDT, Duration: 30 da y, Stop date: 05/28/17 14:41:00 CDT Notes: Roll in palms of hands gently; Do not shake `vigorously. (Same as: Efrain )"Single Patient Use Only "WASTE: F/P - Black; E - Municipal Trash Bin Stabl e for 28 days at room temperature.Expires in days from Date Start Date: 04/28/17 Stop Date: 04/29/17 Status: Discontinued insulin lispro 2 unit, 0.02 mL, Route: SUB-Q, Drug form: SOLN, Bedtime, Dosing Weight 56.818, k g, PRN Blood Glucose Results, Start date: 04/28/17 14:42:00 CDT, Duration: 30 da y, Stop date: 05/28/17 14:41:00 CDT Notes: Roll in palms of hands gently; Do not shake `vigorously. (Same as: Efrain og )"Single Patient Use Only "WASTE: F/P - Black; E - Municipal Trash Bin Stabl e for 28 days at room temperature.Expires in days from Date Start Date: 04/28/17 Stop Date: 04/29/17 Status: Discontinued insulin lispro 4 unit, 0.04 mL, Route: SUB-Q, Drug form: SOLN, Bedtime, Dosing Weight 56.818, k g, PRN Blood Glucose Results, Start date: 04/28/17 14:42:00 CDT, Duration: 30 da y, Stop date: 05/28/17 14:41:00 CDT Notes: Roll in palms of hands gently; Do not shake `vigorously. (Same as: Humal og )"Single Patient Use Only "WASTE: F/P - Black; E - Municipal Trash Bin Stabl e for 28 days at room temperature.Expires in days from Date Start Date: 04/28/17 Stop Date: 04/29/17 Status: Discontinued insulin lispro 3 unit, 0.03 mL, Route: SUB-Q, Drug form: SOLN, Bedtime, Dosing Weight 56.818, k g, PRN Blood Glucose Results, Start date: 04/28/17 14:42:00 CDT, Duration: 30 da y, Stop date: 05/28/17 14:41:00 CDT Notes: Roll in palms of hands gently; Do not shake `vigorously. ([facility]: [facility] )"Single Patient Use Only "WASTE: F/P - Black; E - Municipal Trash Bin Stabl e for 28 days at room temperature.Expires in days from Date Start Date: 04/28/17 Stop Date: 04/29/17 Status: Discontinued Januvia 50 mg oral tablet 50 mg=1 tab, PO, Daily, # 30 tab, 0 Refill(s) Start Date: 04/28/17 Stop Date: 05/28/17 Status: Ordered losartan 100 mg, 2 tab, Route: PO, Drug form: TAB, Daily, Dosing Weight 56.818, kg, Start date: 04/29/17 9:00:00 CDT, Duration: 30 day, Stop date: 05/28/17 9:00:00 CDT Notes: (Same as: Cozaar) Start Date: 04/29/17 Stop Date: 04/29/17 Status: Canceled magnesium oxide 400 mg=1 tab, PO, Daily, # 20 tab, 0 Refill(s) Start Date: 04/28/17 Stop Date: 05/18/17 Status: Ordered metoprolol extended release 50 mg, 1 tab, Route: PO, Drug form: ERTAB, Daily, Start date: 04/29/17 9:00:00 C DT, Duration: 30 day, Stop date: 05/28/17 9:00:00 CDT Notes: (Same as: Toprol XL) May split tab, but do not crush. Start Date: 04/29/17 Stop Date: 04/29/17 Status: Canceled morphine Sulfate 2 mg, 1 mL, Route: IVP, Drug form: SOLN, Q4H, Dosing Weight 56.818, kg, PRN Pain Score 7-10, Start date: 04/27/17 20:20:00 CDT, Duration: 30 day, Stop date: 20:19:00 CDT Start Date: 04/27/17 Stop Date: 04/29/17 Status: Discontinued morphine Sulfate 2 mg, 1 mL, Route: IVP, Drug form: SOLN, Q15Min, Dosing Weight 56.818, kg, PRN C hest Pain, Start date: 04/27/17 20:20:00 CDT, Duration: 2 doses or times, Stop d ate: Limited # of times Start Date: 04/27/17 Stop Date: 04/29/17 Status: Discontinued Myrbetriq 25 mg oral tablet, extended release 25 mg, 1 tab, Route: PO, Drug form: ERTAB, Daily, Dosing Weight 56.818, kg, Star t date: 04/29/17 9:00:00 CDT, Duration: 30 day, Stop date: 05/28/17 9:00:00 CDT Start Date: 04/29/17 Stop Date: 04/29/17 Status: Canceled nitroglycerin SL Tab 0.4 mg, 1 tab, Route: SL, Drug form: TAB, Q5Min, Dosing Weight 56.818, kg, PRN C hest Pain, Start date: 04/27/17 20:20:00 CDT, Duration: 3 doses or times, Stop d ate: Limited # of times Notes: (Same as:Nitroquick, Nitrostat)"Do Not Crush" Sublingual tablet Start Date: 04/27/17 Stop Date: 04/29/17 Status: Discontinued Norvasc 5 mg, 1 tab, Route: PO, Drug form: TAB, Daily, Dosing Weight 56.818, kg, Start d ate: 04/29/17 9:00:00 CDT, Duration: 30 day, Stop date: 05/28/17 9:00:00 CDT Notes: (Same as: Norvasc) Start Date: 04/29/17 Stop Date: 04/28/17 Status: Canceled omeprazole 40 mg, Route: PO, Daily, Dosing Weight 56.818, kg, Start date: 04/29/17 9:00:00 CDT, Duration: 30 day, Stop date: 05/28/17 9:00:00 CDT Start Date: 04/29/17 Stop Date: 04/28/17 Status: Deleted omeprazole 40 mg, PO, Daily, 0 Refill(s) Start Date: 04/28/17 Status: Ordered ondansetron 4 mg, 2 mL, Route: IVP, Drug form: INJ, Q8H, Dosing Weight 56.818, kg, PRN Nause a & Vomiting, Start date: 04/27/17 20:20:00 CDT, Duration: 30 day, Stop date: 05/27/17 20:19:00 CDT Notes: (Same as: Glenn) MEDICATION WASTE Product Size: 4 mgProduct Was isaac: _0__ mg Start Date: 04/27/17 Stop Date: 04/29/17 Status: Discontinued Protonix 40 mg, 1 tab, Route: PO, Drug form: ECTAB, Q12H, Start date: 04/28/17 21:00:00 C DT, Duration: 30 day, Stop date: 05/28/17 9:00:00 CDT Notes: Tablet should not be chewed or crushed.(Same as: Protonix) Start Date: 04/28/17 Stop Date: 04/29/17 Status: Discontinued Saline Flush 0.9% 10 ml, Route: IVP, Drug Form: INJ, Dosing Weight 56.818, kg, Q12H, Start date: 0 04/27/17 21:00:00 CDT, Duration: 30 day, Stop date: 05/27/17 9:00:00 CDT Notes: (Same as: BD Posiflush) Start Date: 04/27/17 Stop Date: 04/29/17 Status: Discontinued Saline Flush 0.9% 10 ml, Route: IVP, Drug Form: INJ, Dosing Weight 56.818, kg, PRN, PRN Line Flush , Start date: 04/27/17 20:20:00 CDT, Duration: 30 day, Stop date: 05/27/17 20:19 :00 CDT Notes: (Same as: BD Posiflush) Start Date: 04/27/17 Stop Date: 04/29/17 Status: Discontinued Saline Flush 0.9% 10 ml, Route: IVP, Drug Form: INJ, Dosing Weight 56.818, kg, PRN, PRN Line Flush , Start date: 04/27/17 20:20:00 CDT, Duration: 30 day, Stop date: 05/27/17 20:19 :00 CDT Notes: (Same as: BD Posiflush) Start Date: 04/27/17 Stop Date: 04/27/17 Status: Discontinued Sodium Chloride 0.9% (Bolus) IV 500 mL, Infuse Over: 1 hr, Route: IV, ONCE, Priority: STAT, Dosing Weight 56.818 kg, Start date: 04/27/17 17:51:00 CDT, Duration: 1 doses or times, Stop date: 0 04/27/17 17:51:00 CDT Start Date: 04/27/17 Stop Date: 04/27/17 Status: Completed sodium chloride 0.9% 1000 ml INJ 1,000 mL 1,000 mL, Rate: 75 ml/hr, Infuse over: 13.3 hr, Route: IV, Dosing Weight 56.818 kg, Total Volume: 1,000, Start date: 04/27/17 20:20:00 CDT, Duration: 30 day, St op date: 05/27/17 20:19:00 CDT Start Date: 04/27/17 Stop Date: 04/29/17 Status: Discontinued Sodium Chloride 0.9% IV 250 mL, Route: IVPB, Start date: 04/27/17 20:40:00 CDT, Duration: 30 day, Stop d ate: 05/27/17 20:39:00 CDT, PRN Line Flush Start Date: 04/27/17 Stop Date: 04/29/17 Status: Discontinued sucralfate 1 gm, 1 tab, Route: PO, Drug form: TAB, BID, Dosing Weight 56.818, kg, Start maury e: 04/28/17 17:00:00 CDT, Duration: 30 day, Stop date: 05/28/17 9:00:00 CDT Notes: May interfere w/enteral feeds - Take 1 hr before or 2 hr after antacids, dairy pdt, meals & minerals - On empty stomach.For patients unable to swallow tablet, dissolve in 10mL - 30mL of water or juice and stir before giving. (Same As: Carafate) Start Date: 04/28/17 Stop Date: 04/29/17 Status: Discontinued Results ELECTROLYTES 1 2 3 Most recent to oldest [Reference Range]: 141 mEq/L (04/27/17 5:20 PM) Sodium Lvl [135-145 mEq/L] 4.9 mEq/L (04/27/17 5:20 PM) Potassium Lvl [3.5-5.1 mEq/L] 106 mEq/L (04/27/17 5:20 PM) Chloride Lvl [95-109 mEq/L] 28 mEq/L (04/27/17 5:20 PM) CO2 [24-32 mEq/L] 11.9 mEq/L (04/27/17 5:20 PM) AGAP [10.0-20.0 mEq/L] CHEM PANEL 1 2 3 Most recent to oldest [Reference Range]: 1.10 mg/dL (04/27/17 5:20 PM) Creatinine Lvl [0.50-1.40 mg/dL] 49 mL/min/1.73m2 1 *NA* (04/27/17 5:20 PM) eGFR 16 mg/dL (04/27/17 5:20 PM) BUN [7-22 mg/dL] 122 mg/dL *HI* (04/27/17 5:20 PM) Glucose Lvl [70-99 mg/dL] 9.7 mg/dL (04/27/17 5:20 PM) Calcium Lvl [8.5-10.5 mg/dL] 1.8 mg/dL (04/27/17 5:56 PM) Magnesium Lvl [1.8-2.4 mg/dL] 1Result Comment: The eGFR is calculated using [...] be mul tiplied by the estimated BMI. CARDIAC ENZYMES 1 2 3 Most recent to oldest [Reference Range]: 48 unit/L (04/28/17 4:19 AM) 55 unit/L (04/27/17 9:37 PM) 57 unit/L (04/27/17 5:20 PM) Total CK [12-191 unit/L] <0.02 ng/mL (04/28/17 4:19 AM) <0.02 ng/mL (04/27/17 9:37 PM) <0.02 ng/mL (04/27/17 5:20 PM) Troponin-I [0.00-0.40 ng/mL] 186 pg/mL *HI* (04/27/17 5:56 PM) BNP [<=100 pg/mL] URINE AND STOOL 1 2 3 Most recent to oldest [Reference Range]: Clear (04/27/17 6:53 PM) UA Turbidity [Clear] Colorless *NA* (04/27/17 6:53 PM) UA Color [Yellow] 7.0 (04/27/17 6:53 PM) UA pH [5.0-8.0] 1.003 (04/27/17 6:53 PM) UA Spec Grav [<=1.030] Negative mg/dL *NA* (04/27/17 6:53 PM) UA Glucose [Negative mg/dL] Small *ABN* (04/27/17 6:53 PM) UA Blood [Negative] Negative mg/dL *NA* (04/27/17 6:53 PM) UA Ketones [Negative mg/dL] Negative mg/dL (04/27/17 6:53 PM) UA Protein [Negative mg/dL] <=1.0 mg/dL *NA* (04/27/17 6:53 PM) UA Urobilinogen [0.1-1.0 mg/dL] Negative *NA* (04/27/17 6:53 PM) UA Bili [Negative] Negative (04/27/17 6:53 PM) UA Leuk Est [Negative] Negative (04/27/17 6:53 PM) UA Nitrite [Negative] 1 /HPF (04/27/17 6:53 PM) UA WBC [0-5 /HPF] <1 /HPF (04/27/17 6:53 PM) UA RBC [0-2 /HPF] Occasional /LPF *NA* (04/27/17 6:53 PM) UA Sq Epi [Few /LPF] Few /LPF *NA* (04/27/17 6:53 PM) UA Mucus [None Seen /LPF] HEMATOLOGY 1 2 3 Most recent to oldest [Reference Range]: 7.4 K/CMM (04/27/17 5:20 PM) WBC [3.7-10.4 K/CMM] 4.34 M/CMM (04/27/17 5:20 PM) RBC [4.20-5.40 M/CMM] 13.1 g/dL (04/27/17 5:20 PM) Hgb [12.0-16.0 g/dL] 39.6 % (04/27/17 5:20 PM) Hct [36.0-48.0 %] 91.2 fL (04/27/17 5:20 PM) MCV [80.0-98.0 fL] 30.1 pg (04/27/17 5:20 PM) MCH [27.0-31.0 pg] 33.0 g/dL (04/27/17 5:20 PM) MCHC [32.0-36.0 g/dL] 13.7 % (04/27/17 5:20 PM) RDW [11.5-14.5 %] 166 K/CMM (04/27/17 5:20 PM) Platelet [133-450 K/CMM] 9.8 fL (04/27/17 5:20 PM) MPV [7.4-10.4 fL] 77.4 % *HI* (04/27/17 5:20 PM) Segs [45.0-75.0 %] 17.0 % *LOW* (04/27/17 5:20 PM) Lymphocytes [20.0-40.0 %] 5.1 % (04/27/17 5:20 PM) Monocytes [2.0-12.0 %] 0.4 % (04/27/17 5:20 PM) Eosinophils [0.0-4.0 %] 0.1 % (04/27/17 5:20 PM) Basophils [0.0-1.0 %] 5.7 K/CMM (04/27/17 5:20 PM) Segs-Bands # [1.5-8.1 K/CMM] 1.3 K/CMM (04/27/17 5:20 PM) Lymphocytes # [1.0-5.5 K/CMM] 0.4 K/CMM (04/27/17 5:20 PM) Monocytes # [0.0-0.8 K/CMM] 0.0 K/CMM (04/27/17 5:20 PM) Eosinophils # [0.0-0.5 K/CMM] 0.0 K/CMM (04/27/17 5:20 PM) Basophils # [0.0-0.2 K/CMM] Immunizations Not Given Vaccine Date Status Refusal Reason influenza virus vaccine, inactivated1 04/28/17 Not Given Patient Refuses 1Result Comment: Patient refused. Will take the vaccine when ready, probably will take at doctors office Procedures Procedure Date Related Diagnosis Body Site section Cholecystectomy Removal of urethral stone Social History Social History Type Response Alcohol Never, Previous treatment: None. Smoking Status Never smoker; Exposure to Tobacco Smoke None; Cigarette Smoking Last 365 Days No; Reg Smoking Cessation Counseling No Assessment and Plan Extracted from: Title: Progress Note *AK Author: Sarah Moulton MD Date: 04/28/17 Impression and Plan chest pain. rule out ACS. serial trop x 3 neg. EKG sinus rhythm with PVCs DM2. on insulin HTN stable on meds 04/28, card consult. recs Extracted from: Title: History and Physical Author: Aldo Ortega Date: 04/27/17 Assessment/Plan 76-year-old female with Atypical chest pain Cardiac arrhythmias History of hypertension, blood pressure currently stable Generalized weakness Diabetes mellitus, blood sugar controlled Plan We will place the patient in observation status and will be monitored on telemetry We will trend cardiac enzymes every 4 hourly for total of 3 times. IV morphinesublingual nitroglycerin as needed for pain control. IVZofran as neededfor nausea control. Patient willbe n.p.o. after midnight We will add onserum phosphorus and magnesium levelto emergency room labs. We will consult cardiology and follow-up any further recommendation Patient will be on insulin sliding scale. Fingerstick glucose monitoring every 6 hourly while patient is n.p.o. Resume home antihypertensives. Prophylaxis DVT prophylaxis will be with SCD pumps. Disposition Patient to be placed in observation status. She will likely require no more than one midnight stay I reviewed the patient's records including notes from her previous hospitalizations, emergency room notes, labs and imaging studies.
--- OUTSIDE RECORDS SUMMARY | 2018-12-16 14:46 | XMS REPORT | Summary of Care ---
Author Organization Unknown Address Unknown Phone Unavailable Encounter HQ Chelitar_angel(FIN) [id number] Date(s): 05/14/14 - 05/14/14 [facility] [address] Outpatient Imaging [facility] [address] [place] [address] [address] [facility] [id number] [place] [address] Discharge Disposition: Home Physician Attending: Waldemar Taveras MD Reason for Visit V76.12 - SCREEN MAMMOGRA Problem List Condition Effective Dates Status Health Status Informant Diabetes(Confirmed) Active Hypertension(Confirm Active ed) Allergies, Adverse Reactions, Alerts Substance Reaction Severity Status adenosine Active contrast media Active (iodine-based) Medications No data available for this section Medications Administered During Your Visit No data available for this section Immunizations No data available for this section Social History Social History Type Response Alcohol Use: Never, Previous treatment: None Smoking Status Never smoker, Exposure to Tobacco Smoke None, Cigarette Smoking Last 365 Days No, Reg Smoking Cessation Counseling Yes
--- OUTSIDE RECORDS SUMMARY | 2018-12-16 14:46 | XMS REPORT | Summary of Care ---
Author Author [facility] Cardiology [facility] Organization [facility] Address Unknown Phone Unavailable Encounter HQ Chelitar_angel(FIN) [id number] Date(s): 09/27/17 - 09/27/17 [facility] 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
--- OUTSIDE RECORDS SUMMARY | 2018-12-16 14:46 | XMS REPORT | Summary of Care ---
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
--- OUTSIDE RECORDS SUMMARY | 2018-12-16 14:46 | XMS REPORT | Summary of Care ---
Author Author [facility] Outpatient Imaging [facility] Outpatient Imaging [facility] Address Unknown Phone Unavailable Encounter HQ Encntr_angel(FIN) [id number] Date(s): 07/27/15 - 07/27/15 [facility] Outpatient Imaging [facility] [address] [facility] [address] [place], [place] [address]- [phone] Discharge Disposition: Home Attending Physician: Waldemar Taveras MD Vital Signs No data available for [...]
--- OUTSIDE RECORDS SUMMARY | 2018-12-16 14:46 | XMS REPORT | Summary of Care ---
Author Author [facility] Cardiology [facility] Organization [facility] Address Unknown Phone Unavailable Encounter ISRAEL Ross(FIN) [id number] Date(s): 06/12/17 - 06/12/17 [facility] [address] [facility] [address] [place], [place] [address] [phone] Discharge Disposition: Home or Self Care Attending Physician: Shravan Myers MD Referring Physician: Yony Phan MD Vital Signs Most recent to 1 oldest [Reference Range]: Height 139.7 cm (06/12/17 3:09 PM) Temperature Oral 97.6 DegF [96.4-99.1 DegF] (06/12/17 3:09 PM) Blood Pressure 137/56 mmHg [90-140/60-90 mmHg] (06/12/17 3:09 PM) Peripheral Pulse 61 bpm Rate [60-100 bpm] (06/12/17 3:09 PM) Weight 60.909 kg (06/12/17 3:09 PM) Body Mass Index 31.21 m2 (06/12/17 3:09 PM) Problem List Condition Effective Dates Status Health Status Informant Chronic Resolved gastritis(Confirmed) Diabetes(Confirmed) Active Hypertension(Confirm Active ed) Osteoarthritis of Resolved back(Confirmed) Allergies, Adverse Reactions, Alerts Substance Reaction Severity Status adenosine Active contrast media Active (iodine-based) Medications amLODIPine 10 mg oral tablet 10 mg=1 tab, PO, Daily, # 90 tab, 0 Refill(s) Start Date: 06/12/17 Status: Ordered atorvastatin 20 mg oral tablet 20 mg=1 tab, PO, Bedtime, # 90 tab, 1 Refill(s), Pharmacy: [id number] Start Date: 06/12/17 Status: Ordered gabapentin 300 mg oral capsule 300 mg=1 cap, PO, TID, 0 Refill(s) Start Date: 06/12/17 Status: Ordered Results No data available for this section [...]
--- OUTSIDE RECORDS SUMMARY | 2018-12-16 14:46 | XMS REPORT | Summary of Care ---
Author Organization Unknown Address Unknown Phone Unavailable Encounter [facility](SOO) [id number] Date(s): 03/20/14 - 03/20/14 [facility] [address] Discharge Disposition: Home Physician Attending: Yony Phan MD Physician Admitting: Yony Phan MD Reason for Visit CHEST PAIN Vital Signs 1 2 3 Most recent to oldest [Reference Range]: 152.4 cm (03/20/14 5:34 AM) 139.7 cm (03/20/14 12:58 AM) Height 98.2 DegF (03/20/14 9:00 PM) 98.7 DegF (03/20/14 4:00 PM) 98.1 DegF (03/20/14 12:25 PM) Temperature Oral [96.4-99.1 DegF] 167 mmHg *HI* (03/20/14 9:00 PM) 135 mmHg (03/20/14 4:00 PM) 147 mmHg *HI* (03/20/14 12:25 PM) Systolic Blood Pressure [90-140 mmHg] 72 mmHg (03/20/14 9:00 PM) 71 mmHg (03/20/14 4:00 PM) 68 mmHg (03/20/14 12:25 PM) Diastolic Blood Pressure [60-90 mmHg] 20 BRMIN (03/20/14 9:00 PM) 20 BRMIN (03/20/14 4:00 PM) 20 BRMIN (03/20/14 12:25 PM) Respiratory Rate [14-20 BRMIN] 102 bpm *HI* (03/20/14 9:00 PM) 65 bpm (03/20/14 4:00 PM) 64 bpm (03/20/14 12:25 PM) Peripheral Pulse Rate [60-100 bpm] 64.2 kg (03/20/14 5:34 AM) 63.636 kg (03/20/14 12:58 AM) Weight 27.64 m2 (03/20/14 5:34 AM) 32.61 m2 (03/20/14 12:58 AM) Body Mass Index Problem List Condition Effective Dates Status Health Status Informant Diabetes(Confirmed) Active Hypertension(Confirm Active ed) Allergies, Adverse Reactions, Alerts Substance Reaction Severity Status adenosine Active contrast media Active (iodine-based) Medications Advil Migraine 200 mg oral capsule 200 mg=1 cap, PO, PRN, 0 Refill(s) Start Date: 03/20/14 Status: Ordered aspirin 325 mg, 1 tab, Route: PO, Drug form: TAB, ONCE, Dosing Weight 63.636, kg, Priori ty: STAT, Start date: 03/20/14 4:55:00, Stop date: 03/20/14 4:55:00 Notes: Take with food. Start Date: 03/20/14 Stop Date: 03/20/14 Status: Completed aspirin 325 mg, 1 tab, Route: PO, Drug form: TAB, Daily, Dosing Weight 64.2, kg, Start d ate: 03/20/14 9:00:00, Duration: 30 day, Stop date: 04/18/14 9:00:00 Notes: Take with food. Start Date: 03/20/14 Stop Date: 03/20/14 Status: Discontinued aspirin 325 mg tablet 325 mg, Route: PO, Drug form: TAB, ONCE, Dosing Weight 64.2, kg, Start date: 5:37:00, Stop date: 03/20/14 5:37:00 Start Date: 03/20/14 Stop Date: 03/20/14 Status: Deleted BD Normal Saline Flush 10 mL, Route: IVP, Drug Form: INJ, PRN, PRN Line Flush, Start date: 03/20/14 5:4 3:00, Duration: 30 day, Stop date: 04/19/14 5:42:00 Notes: (Same as: BD Posiflush) Start Date: 03/20/14 Stop Date: 03/20/14 Status: Discontinued cloNIDine 0.1 mg, 1 tab, Route: PO, Drug form: TAB, Q6H, Dosing Weight 64.2, kg, PRN [place] isaac BP, for sbp is greater than 160, Start date: 03/20/14 8:11:00, Duration: 30 day, Stop date: 04/19/14 8:10:00 Notes: (Same As: Catapres) Start Date: 03/20/14 Stop Date: 03/20/14 Status: Discontinued Cozaar 100 mg, 2 tab, Route: PO, Drug form: TAB, Daily, Dosing Weight 64.2, kg, Start d ate: 03/20/14 9:00:00, Duration: 30 day, Stop date: 04/18/14 9:00:00 Notes: (Same as: Cozaar) Start Date: 03/20/14 Stop Date: 03/20/14 Status: Discontinued Cozaar 100 mg oral tablet 100 mg=1 tab, PO, Daily, # 30 tab, 0 Refill(s) Start Date: 03/20/14 Status: Ordered Dextrose 50% Syringe 25 gm, 50 mL, Route: IVP, Drug Form: INJ, Dosing Weight 64.2, kg, PRN, PRN Blood Glucose Results, Start date: 03/20/14 7:57:00, Duration: 30 day, Stop date: 7:56:00 Start Date: 03/20/14 Stop Date: 03/20/14 Status: Discontinued Dextrose 50% Syringe 12.5 gm, 25 mL, Route: IVP, Drug Form: INJ, Dosing Weight 64.2, kg, PRN, PRN Blo od Glucose Results, Start date: 03/20/14 7:57:00, Duration: 30 day, Stop date: 0 04/19/14 7:56:00 Start Date: 03/20/14 Stop Date: 03/20/14 Status: Discontinued enoxaparin 40 mg, 0.4 mL, Route: SUB-Q, Drug form: INJ, [id number], Dosing Weight 64.2, kg, S tart date: 03/20/14 8:00:00, Duration: 30 day, Stop date: 04/18/14 8:00:00 Notes: (Same as: Lovenox) Start Date: 03/20/14 Stop Date: 03/20/14 Status: Discontinued gabapentin 300 mg, PO, Daily, 0 Refill(s) Start Date: 03/20/14 Status: Ordered gabapentin 300 mg, 1 cap, Route: PO, Drug form: CAP, Daily, Dosing Weight 64.2, kg, Start d ate: 03/20/14 9:00:00, Duration: 30 day, Stop date: 04/18/14 9:00:00 Notes: (Same as: Neurontin) Start Date: 03/20/14 Stop Date: 03/20/14 Status: Discontinued glimepiride 2 mg, PO, Daily, 0 Refill(s) Start Date: 03/20/14 Status: Ordered glimepiride 2 mg, 1 tab, Route: PO, Drug form: TAB, Daily, Dosing Weight 64.2, kg, Start amury e: 03/20/14 9:00:00, Duration: 30 day, Stop date: 04/18/14 9:00:00 Notes: (Same as: Amaryl) Start Date: 03/20/14 Stop Date: 03/20/14 Status: Discontinued glucagon 1 mg, Route: IM, Drug form: PDR/INJ, PRN, Dosing Weight 64.2, kg, PRN Blood Gluc ose Results, Start date: 03/20/14 7:57:00, Duration: 30 day, Stop date: 04/19/14 7:56:00 Start Date: 03/20/14 Stop Date: 03/20/14 Status: Discontinued insulin aspart 4 unit, 0.04 mL, Route: SUB-Q, Drug form: SOLN, TID-Before Meals, Dosing Weight 64.2, kg, PRN Blood Glucose Results, Start date: 03/20/14 7:57:00, Duration: 30 day, Stop date: 04/19/14 7:56:00 Notes: Roll in palms of hands gently; Do not shake vigorously. (Same as: NovoLO G)"single patient use only" Stable for 28 days at room temperature.Expires in _ ____ days from Date Start Date: 03/20/14 Stop Date: 03/20/14 Status: Discontinued insulin aspart 2 unit, 0.02 mL, Route: SUB-Q, Drug form: SOLN, TID-Before Meals, Dosing Weight 64.2, kg, PRN Blood Glucose Results, Start date: 03/20/14 7:57:00, Duration: 30 day, Stop date: 04/19/14 7:56:00 Notes: Roll in palms of hands gently; Do not shake vigorously. (Same as: NovoLO G)"single patient use only" Stable for 28 days at room temperature.Expires in _ ____ days from Date Start Date: 03/20/14 Stop Date: 03/20/14 Status: Discontinued insulin aspart 10 unit, 0.1 mL, Route: SUB-Q, Drug form: SOLN, TID-Before Meals, Dosing Weight 64.2, kg, PRN Blood Glucose Results, Start date: 03/20/14 7:57:00, Duration: 30 day, Stop date: 04/19/14 7:56:00 Notes: Roll in palms of hands gently; Do not shake vigorously. (Same as: NovoLO G)"single patient use only" Stable for 28 days at room temperature.Expires in _ ____ days from Date Start Date: 03/20/14 Stop Date: 03/20/14 Status: Discontinued insulin aspart 6 unit, 0.06 mL, Route: SUB-Q, Drug form: SOLN, TID-Before Meals, Dosing Weight 64.2, kg, PRN Blood Glucose Results, Start date: 03/20/14 7:57:00, Duration: 30 day, Stop date: 04/19/14 7:56:00 Notes: Roll in palms of hands gently; Do not shake vigorously. (Same as: NovoLO G)"single patient use only" Stable for 28 days at room temperature.Expires in _ ____ days from Date Start Date: 03/20/14 Stop Date: 03/20/14 Status: Discontinued insulin aspart 8 unit, 0.08 mL, Route: SUB-Q, Drug form: SOLN, TID-Before Meals, Dosing Weight 64.2, kg, PRN Blood Glucose Results, Start date: 03/20/14 7:57:00, Duration: 30 day, Stop date: 04/19/14 7:56:00 Notes: Roll in palms of hands gently; Do not shake vigorously. (Same as: NovoCECILIA G)"single patient use only" Stable for 28 days at room temperature.Expires in _ ____ days from Date Start Date: 03/20/14 Stop Date: 03/20/14 Status: Discontinued Januvia 100 mg, 1 tab, Route: PO, Drug form: TAB, Daily, Dosing Weight 64.2, kg, Start d ate: 03/20/14 9:00:00, Duration: 30 day, Stop date: 04/18/14 9:00:00 Notes: (Same as: Januvia) Start Date: 03/20/14 Stop Date: 03/20/14 Status: Discontinued Januvia 100 mg, PO, Daily, 0 Refill(s) Start Date: 03/20/14 Status: Ordered labetalol 20 mg, 4 mL, Route: IVP, Drug form: INJ, ONCE, Dosing Weight 63.636, kg, Priorit y: STAT, Start date: 03/20/14 3:16:00, Stop date: 03/20/14 3:16:00 Start Date: 03/20/14 Stop Date: 03/20/14 Status: Completed losartan 50 mg oral tablet 0 Refill(s) Start Date: 03/20/14 Stop Date: 03/20/14 Status: Discontinued metFORMIN 1,000 mg, 2 tab, Route: PO, Drug form: TAB, BID, Dosing Weight 64.2, kg, Start d ate: 03/20/14 9:00:00, Duration: 30 day, Stop date: 04/18/14 17:00:00 Notes: (Same as: Glucophage) Take with meal Start Date: 03/20/14 Stop Date: 03/20/14 Status: Discontinued metFORMIN 1,000 mg, Daily, 0 Refill(s) Start Date: 03/20/14 Status: Ordered metoprolol 25 mg oral tablet, extended release 0 Refill(s) Start Date: 03/20/14 Stop Date: 03/20/14 Status: Discontinued metoprolol extended release 50 mg, 1 tab, Route: PO, Drug form: ERTAB, Daily, Start date: 03/20/14 9:00:00, Duration: 30 day, Stop date: 04/18/14 9:00:00 Notes: (Same as: Toprol XL) May split tab, but do not crush. Start Date: 03/20/14 Stop Date: 03/20/14 Status: Discontinued metoprolol tartrate 50 mg, 1 tab, Route: PO, Drug form: TAB, Q12H, Dosing Weight 64.2, kg, Start maury e: 03/20/14 9:00:00, Duration: 30 day, Stop date: 04/18/14 21:00:00 Notes: (Same as: Lopressor) Start Date: 03/20/14 Stop Date: 03/20/14 Status: Discontinued metoprolol tartrate 50 mg oral tablet 50 mg=1 tab, PO, Q12H, # 60 tab, 0 Refill(s) Start Date: 03/20/14 Status: Ordered Myrbetriq 25 mg oral tablet, extended release 25 mg=1 tab, PO, Daily, 0 Refill(s) Start Date: 03/20/14 Status: Ordered NexIUM 40 mg, Route: PO, Daily, Dosing Weight 64.2, kg, Start date: 03/20/14 9:00:00, D uration: 30 day, Stop date: 04/18/14 9:00:00 Start Date: 03/20/14 Stop Date: 03/20/14 Status: Deleted NexIUM 40 mg, PO, Daily, 0 Refill(s) Start Date: 03/20/14 Status: Ordered nitrofurantoin 100 mg, 1 cap, Route: PO, Drug form: CAP, Daily, Dosing Weight 64.2, kg, Start d ate: 03/20/14 9:00:00, Duration: 30 day, Stop date: 04/18/14 9:00:00 Notes: Not Recommended for patients with CrCl< 50 ml/minWith food (Same as:Macrodantin) Start Date: 03/20/14 Stop Date: 03/20/14 Status: Discontinued nitrofurantoin macrocrystals 100 mg oral capsule (Macrodantin) 100 mg=1 cap, PO, Daily, 0 Refill(s) Start Date: 03/20/14 Status: Ordered nitroglycerin SL Tab 0.4 mg, 1 tab, Route: SL, Drug form: TAB, Q5Min, Dosing Weight 64.2, kg, PRN Mariel st Pain, Start date: 03/20/14 5:37:00, Duration: 3 doses or times, Stop date: Ysabel gunderson # of times Notes: (Same as:Nitroquick, Nitrostat)"Do Not Crush" Sublingual tablet Start Date: 03/20/14 Stop Date: 03/20/14 Status: Discontinued ondansetron 4 mg, 1 tab, Route: PO, Drug form: TAB, Q8H, Dosing Weight 64.2, kg, PRN Nausea & Vomiting, Start date: 03/20/14 5:37:00, Duration: 30 day, Stop date: 04/19/14 5:36:00 Notes: (Same as: Zofran) Start Date: 03/20/14 Stop Date: 03/20/14 Status: Discontinued Protonix 40 mg, 1 tab, Route: PO, Drug form: ECTAB, Before Dinner, Start date: 03/20/14 1 6:30:00, Duration: 30 day, Stop date: 04/18/14 16:30:00 Notes: Tablet should not be chewed or crushed.(Same as: Protonix) Start Date: 03/20/14 Stop Date: 03/20/14 Status: Discontinued Saline Flush 0.9% 10 mL, Route: IVP, Drug Form: INJ, Dosing Weight 63.636, kg, PRN, PRN Line Flush , Start date: 03/20/14 1:45:00, Duration: 30 day, Stop date: 04/19/14 1:44:00 Notes: (Same as: BD Posiflush) Start Date: 03/20/14 Stop Date: 03/20/14 Status: Discontinued Saline Flush 0.9% 5 ml, Route: IVP, Drug Form: INJ, Dosing Weight 64.2, kg, PRN, PRN Line Flush, S tart date: 03/20/14 5:37:00, Duration: 30 day, Stop date: 04/19/14 5:36:00 Notes: (Same as: BD Posiflush) Start Date: 03/20/14 Stop Date: 03/20/14 Status: Discontinued Saline Flush 0.9% 5 ml, Route: IVP, Drug Form: INJ, Dosing Weight 64.2, kg, Q12H, Start date: 02/28 09/12 9:00:00, Duration: 30 day, Stop date: 04/18/14 21:00:00 Notes: (Same as: BD Posiflush) Start Date: 03/20/14 Stop Date: 03/20/14 Status: Discontinued Sodium Chloride 0.9% IV 250 mL, Route: IVPB, Start date: 03/20/14 5:43:00, Duration: 30 day, Stop date: 04/19/14 5:42:00, PRN Line Flush Start Date: 03/20/14 Stop Date: 03/20/14 Status: Discontinued Results ELECTROLYTES 1 2 3 Most recent to oldest [Reference Range]: 145 mEq/L (03/20/14 7:50 AM) 139 mEq/L (03/20/14 2:00 AM) Sodium Lvl [135-145 mEq/L] 4.4 mEq/L (03/20/14 7:50 AM) 4.5 mEq/L 1 (03/20/14 2:00 AM) Potassium Lvl [3.5-5.1 mEq/L] 108 mEq/L (03/20/14 7:50 AM) 104 mEq/L (03/20/14 2:00 AM) Chloride Lvl [95-109 mEq/L] 29 mEq/L (03/20/14 7:50 AM) 32 mEq/L (03/20/14 2:00 AM) CO2 [24-32 mEq/L] 12.4 mEq/L (03/20/14 7:50 AM) 7.5 mEq/L *LOW* (03/20/14 2:00 AM) AGAP [10.0-20.0 mEq/L] 1Result Comment: Specimen slightly hemolyz. CHEM PANEL 1 2 3 Most recent to oldest [Reference Range]: 0.9 mg/dL (03/20/14 9:47 AM) 1.0 mg/dL (03/20/14 7:50 AM) 0.9 mg/dL (03/20/14 2:00 AM) Creatinine Lvl [0.5-1.4 mg/dL] 64 mL/min/1.73m2 2 *NA* (03/20/14 9:47 AM) 56 mL/min/1.73m2 3 *NA* (03/20/14 7:50 AM) 64 mL/min/1.73m2 4 *NA* (03/20/14 2:00 AM) eGFR 15 mg/dL (03/20/14 7:50 AM) 16 mg/dL (03/20/14 2:00 AM) BUN [7-22 mg/dL] 18 (03/20/14 2:00 AM) B/C Ratio [6-25] 146 mg/dL 5 *HI* (03/20/14 7:50 AM) 154 mg/dL 6 *HI* (03/20/14 2:00 AM) Glucose Lvl [70-99 mg/dL] 7.5 g/dL (03/20/14 2:00 AM) Total Protein [6.4-8.4 g/dL] 3.6 g/dL (03/20/14 2:00 AM) Albumin Lvl [3.5-5.0 g/dL] 3.9 g/dL (03/20/14 2:00 AM) Globulin [2.0-4.0 g/dL] 0.9 (03/20/14 2:00 AM) A/G Ratio [0.7-1.6] 9.4 mg/dL (03/20/14 7:50 AM) 9.2 mg/dL (03/20/14 2:00 AM) Calcium Lvl [8.5-10.5 mg/dL] 25 unit/L (03/20/14 2:00 AM) ALT [0-65 unit/L] 23 unit/L (03/20/14 2:00 AM) AST [0-37 unit/L] 51 unit/L (03/20/14 2:00 AM) Alk Phos [39-136 unit/L] 0.4 mg/dL (03/20/14 2:00 AM) Bili Total [0.2-1.3 mg/dL] 2Result Comment: The eGFR is calculated using [...] be mul tiplied by the estimated BMI. 3Result Comment: The eGFR is calculated using [...] be mul tiplied by the estimated BMI. 4Result Comment: The eGFR is calculated using [...] be mul tiplied by the estimated BMI. 5Interpretive Data: Adult reference range values reflect the clinical guidelines of the [place] [employer]. 6Interpretive Data: Adult reference range values reflect the clinical guidelines of the [place] [employer]. CARDIAC ENZYMES 1 2 3 Most recent to oldest [Reference Range]: 78 unit/L (03/20/14 2:05 PM) 77 unit/L (03/20/14 7:50 AM) 125 unit/L (8/22/14 2:00 AM) Total CK [12-191 unit/L] 0.9 ng/mL (03/20/14 2:05 PM) 0.7 ng/mL (03/20/14 7:50 AM) 0.8 ng/mL (03/20/14 2:00 AM) CK MB [0.5-3.6 ng/mL] 1.2 (03/20/14 2:05 PM) 0.9 (03/20/14 7:50 AM) 0.6 (03/20/14 2:00 AM) CK MB Index [0.0-2.5] <0.02 ng/mL (03/20/14 2:05 PM) <0.02 ng/mL (03/20/14 7:50 AM) <0.02 ng/mL (03/20/14 2:00 AM) Troponin-I [0.00-0.40 ng/mL] SPECIAL CHEMISTRY 1 2 3 Most recent to oldest [Reference Range]: 7.5 % *HI* (03/20/14 7:50 AM) Hgb A1C [<=5.6 %] DRUG SCREEN 1 2 3 Most recent to oldest [Reference Range]: Negative *NA* (03/20/14 4:55 AM) U Amph Scr [Negative] Negative *NA* (03/20/14 4:55 AM) U Ela Scr [Negative] Negative *NA* (03/20/14 4:55 AM) U Benzodia Scr [Negative] Negative *NA* (03/20/14 4:55 AM) U Cocaine Scr [Negative] Negative *NA* (03/20/14 4:55 AM) U Opiate Scr [Negative] Negative *NA* (03/20/14 4:55 AM) U Phencyc Scr [Negative] Negative *NA* (03/20/14 4:55 AM) U Cannab Scr [Negative] See Note 7 *NA* (03/20/14 4:55 AM) UDS Note 7Interpretive Data: Drugs reported as positive have [...] Methadone 300 ng/mL Urine alcohol 20 mg/dL HEMATOLOGY 1 2 3 Most recent to oldest [Reference Range]: 6.4 K/CMM (03/20/14 7:50 AM) 6.0 K/CMM (03/20/14 2:00 AM) WBC [3.7-10.4 K/CMM] 3.58 M/CMM *LOW* (03/20/14 7:50 AM) 3.72 M/CMM *LOW* (03/20/14 2:00 AM) RBC [4.20-5.40 M/CMM] 10.5 g/dL *LOW* (03/20/14 7:50 AM) 11.1 g/dL *LOW* (03/20/14 2:00 AM) Hgb [12.0-16.0 g/dL] 32.0 % *LOW* (03/20/14 7:50 AM) 32.5 % *LOW* (03/20/14 2:00 AM) Hct [36.0-48.0 %] 89.3 fL (03/20/14 7:50 AM) 87.3 fL (03/20/14 2:00 AM) MCV [80.0-98.0 fL] 29.4 pg (03/20/14 7:50 AM) 29.7 pg (03/20/14 2:00 AM) MCH [27.0-31.0 pg] 32.9 g/dL (03/20/14 7:50 AM) 34.1 g/dL (03/20/14 2:00 AM) MCHC [32.0-36.0 g/dL] 13.5 % (03/20/14 7:50 AM) 13.7 % (03/20/14 2:00 AM) RDW [11.5-14.5 %] 142 K/CMM (03/20/14 7:50 AM) 151 K/CMM (03/20/14 2:00 AM) Platelet [133-450 K/CMM] 9.4 fL (03/20/14 7:50 AM) 10.4 fL (03/20/14 2:00 AM) MPV [7.4-10.4 fL] 69.4 % (03/20/14 7:50 AM) 71.7 % (03/20/14 2:00 AM) Segs [45.0-75.0 %] 24.0 % (03/20/14 7:50 AM) 22.6 % (03/20/14 2:00 AM) Lymphocytes [20.0-40.0 %] 6.0 % (03/20/14 7:50 AM) 4.2 % (03/20/14 2:00 AM) Monocytes [2.0-12.0 %] 0.3 % (03/20/14 7:50 AM) 1.2 % (03/20/14 2:00 AM) Eosinophils [0.0-4.0 %] 0.3 % (03/20/14 7:50 AM) 0.3 % (03/20/14 2:00 AM) Basophils [0.0-1.0 %] 4.4 K/CMM (03/20/14 7:50 AM) 4.3 K/CMM (03/20/14 2:00 AM) Segs-Bands # [1.5-8.1 K/CMM] 1.5 K/CMM (03/20/14 7:50 AM) 1.4 K/CMM (03/20/14 2:00 AM) Lymphocytes # [1.0-5.5 K/CMM] 0.4 K/CMM (03/20/14 7:50 AM) 0.2 K/CMM (03/20/14 2:00 AM) Monocytes # [0.0-0.8 K/CMM] 0.0 K/CMM (03/20/14 7:50 AM) 0.1 K/CMM (03/20/14 2:00 AM) Eosinophils # [0.0-0.5 K/CMM] 0.0 K/CMM (03/20/14 7:50 AM) 0.0 K/CMM (03/20/14 2:00 AM) Basophils # [0.0-0.2 K/CMM] 31.4 seconds 8 (03/20/14 9:47 AM) PTT [22.9-35.8 seconds] 8Interpretive Data: Heparin Therapeutic Range: 57 - 92 Seconds Medications Administered During Your Visit No data available for this section Immunizations No data available for this section Procedures Procedure Type Body Site Date of Procedure Related Diagnosis section Cholecystectomy Social History Social History Type Response Alcohol Use: Never, Previous treatment: None Smoking Status Never smoker, Exposure to Tobacco Smoke None, Cigarette Smoking Last 365 Days No, Reg Smoking Cessation Counseling Yes
--- OUTSIDE RECORDS SUMMARY | 2018-12-16 14:46 | XMS REPORT | Summary of Care ---
Author Author [facility] Organization [facility] Address Unknown Phone Unavailable Encounter ISRAEL Ross(SOO) [id number] Date(s): 03/02/17 - 03/03/17 [facility] [address] [place] [address]- [phone] Discharge Disposition: Home or Self Care Attending Physician: Yony Phan MD Vital Signs 1 2 3 Most recent to oldest [Reference Range]: 147.32 cm (03/02/17 1:39 PM) Height 97.6 DegF (03/03/17 9:10 AM) 97.8 DegF (03/03/17 4:43 AM) 97.8 DegF (03/02/17 7:28 PM) Temperature Oral [96.4-99.1 DegF] 119/64 mmHg (03/03/17 9:10 AM) 116/61 mmHg (03/03/17 4:43 AM) 134/78 mmHg (03/02/17 7:28 PM) Blood Pressure [90-140/60-90 mmHg] 16 BRMIN (03/03/17 9:10 AM) 16 BRMIN (03/03/17 4:43 AM) 16 BRMIN (03/02/17 7:28 PM) Respiratory Rate [14-20 BRMIN] 48 bpm *LOW* (03/03/17 9:10 AM) 57 bpm *LOW* (03/03/17 4:43 AM) 60 bpm (03/02/17 7:28 PM) Peripheral Pulse Rate [60-100 bpm] 60.455 kg (03/02/17 1:39 PM) Weight 27.86 m2 (03/02/17 1:39 PM) Body Mass Index Problem List Condition Effective Dates Status Health Status Informant Chronic Resolved gastritis(Confirmed) Diabetes(Confirmed) Active Hypertension(Confirm Active ed) Osteoarthritis of Resolved back(Confirmed) Allergies, Adverse Reactions, Alerts Substance Reaction Severity Status adenosine Active contrast media Active (iodine-based) Medications aspirin 325 mg, 1 tab, Route: PO, Drug form: TAB, Daily, Dosing Weight 60.455, kg, Start date: 03/03/17 9:00:00 CDT, Duration: 30 day, Stop date: 04/01/17 9:00:00 CDT Notes: Take with food. Start Date: 03/03/17 Stop Date: 03/03/17 Status: Discontinued BD Normal Saline Flush 10 mL, Route: IVP, Drug Form: INJ, PRN, PRN Line Flush, Start date: 03/02/17 18: 58:00 CDT, Duration: 30 day, Stop date: 04/01/17 18:57:00 CDT Notes: (Same as: BD Posiflush) Start Date: 03/02/17 Stop Date: 03/03/17 Status: Discontinued Cozaar 100 mg, 2 tab, Route: PO, Drug form: TAB, Daily, Dosing Weight 60.455, kg, Start date: 03/03/17 9:00:00 CDT, Duration: 30 day, Stop date: 04/01/17 9:00:00 CDT Notes: (Same as: Cozaar) Start Date: 03/03/17 Stop Date: 03/03/17 Status: Discontinued Dextrose 50% Syringe 12.5 gm, 25 mL, Route: IVP, Drug Form: INJ, Dosing Weight 60.455, kg, PRN, PRN B lood Glucose Results, Start date: 03/02/17 18:47:00 CDT, Duration: 30 day, Stop date: 04/01/17 18:46:00 CDT Start Date: 03/02/17 Stop Date: 03/03/17 Status: Discontinued Dextrose 50% Syringe 25 gm, 50 mL, Route: IVP, Drug Form: INJ, Dosing Weight 60.455, kg, PRN, PRN Blo od Glucose Results, Start date: 03/02/17 18:47:00 CDT, Duration: 30 day, Stop da te: 04/01/17 18:46:00 CDT Start Date: 03/02/17 Stop Date: 03/03/17 Status: Discontinued enoxaparin 40 mg, 0.4 mL, Route: SUB-Q, Drug form: INJ, [id number], Dosing Weight 60.455, kg, Start date: 03/02/17 19:00:00 CDT, Duration: 30 day, Stop date: 03/31/17 19:00: 00 CDT Notes: (Same as: Lovenox) Start Date: 03/02/17 Stop Date: 03/03/17 Status: Discontinued glimepiride 4 mg, Route: PO, Daily, Dosing Weight 60.455, kg, Start date: 03/03/17 9:00:00 C DT, Duration: 30 day, Stop date: 04/01/17 9:00:00 CDT Start Date: 03/03/17 Stop Date: 03/03/17 Status: Deleted glucagon 1 mg, Route: IM, Drug form: PDR/INJ, PRN, Dosing Weight 60.455, kg, PRN Blood Gl ucose Results, Start date: 03/02/17 18:47:00 CDT, Duration: 30 day, Stop date: 0 04/01/17 18:46:00 CDT Start Date: 03/02/17 Stop Date: 03/03/17 Status: Discontinued Glucotrol 10 mg, 1 tab, Route: PO, Drug form: TAB, BID-Before Meals, Start date: 03/03/17 7:30:00 CDT, Duration: 30 day, Stop date: 04/01/17 16:30:00 CDT Notes: (Same as: Glucotrol) 30 min before meals. Start Date: 03/03/17 Stop Date: 03/03/17 Status: Discontinued hydrALAZINE 10 mg, 0.5 mL, Route: IVP, Drug form: INJ, Q6H, Dosing Weight 60.455, kg, PRN Hy pertension, Start date: 03/02/17 23:51:00 CDT, Duration: 30 day, Stop date: 10/13 23:50:00 CDT Notes: (Same as: Apresoline)Push over 5 minutes Start Date: 03/02/17 Stop Date: 03/03/17 Status: Discontinued hydrALAZINE 10 mg, Route: IVP, Q6H, Dosing Weight 60.455, kg, Start date: 03/03/17 0:00:00 C DT, Duration: 30 day, Stop date: 04/01/17 18:00:00 CDT Start Date: 03/03/17 Stop Date: 03/02/17 Status: Canceled ibuprofen 200 mg, 1 tab, Route: PO, Drug form: TAB, Q6H, Dosing Weight 60.455, kg, PRN Nima n 1-3/Temp > 100.4 F, Start date: 03/03/17 0:16:00 CDT, Duration: 30 day, Stop date: 04/02/17 0:15:00 CDT Notes: (Same as: Advil) Give with food. Start Date: 03/03/17 Stop Date: 03/03/17 Status: Discontinued ibuprofen 600 mg, Route: PO, ONCE, Dosing Weight 60.455, kg, Priority: STAT, Start date: 0 03/02/17 16:45:00 CDT, Stop date: 03/02/17 16:45:00 CDT Start Date: 03/02/17 Stop Date: 03/02/17 Status: Completed ibuprofen 200 mg, Route: PO, Drug form: CAP, PRN, Dosing Weight 60.455, kg, PRN Pain 1-3/T emp > 100.4 F, Start date: 03/02/17 23:52:00 CDT, Duration: 30 day, Stop date: 04/01/17 23:51:00 CDT Start Date: 03/02/17 Stop Date: 03/03/17 Status: Discontinued insulin aspart 10 unit, 0.1 mL, Route: SUB-Q, Drug form: SOLN, TID-Before Meals, Dosing Weight 60.455, kg, PRN Blood Glucose Results, Start date: 03/02/17 18:47:00 CDT, Durati on: 30 day, Stop date: 04/01/17 18:46:00 CDT Notes: Roll in palms of hands gently; Do not shake vigorously. (Same as: Nilsa Arauz)"single patient use only"WASTE: F/P - Black; E - Municipal Trash Bin Stable f or 28 days at room temperature.Expires in days from Date Start Date: 03/02/17 Stop Date: 03/03/17 Status: Discontinued insulin aspart 8 unit, 0.08 mL, Route: SUB-Q, Drug form: SOLN, TID-Before Meals, Dosing Weight 60.455, kg, PRN Blood Glucose Results, Start date: 03/02/17 18:47:00 CDT, Durati on: 30 day, Stop date: 04/01/17 18:46:00 CDT Notes: Roll in palms of hands gently; Do not shake vigorously. (Same as: Nilsa Arauz)"single patient use only"WASTE: F/P - Black; E - Municipal Trash Bin Stable f or 28 days at room temperature.Expires in days from Date Start Date: 03/02/17 Stop Date: 03/03/17 Status: Discontinued insulin aspart 6 unit, 0.06 mL, Route: SUB-Q, Drug form: SOLN, TID-Before Meals, Dosing Weight 60.455, kg, PRN Blood Glucose Results, Start date: 03/02/17 18:47:00 CDT, Durati on: 30 day, Stop date: 04/01/17 18:46:00 CDT Notes: Roll in palms of hands gently; Do not shake vigorously. (Same as: Nilsa Arauz)"single patient use only"WASTE: F/P - Black; E - Municipal Trash Bin Stable f or 28 days at room temperature.Expires in days from Date Start Date: 03/02/17 Stop Date: 03/03/17 Status: Discontinued insulin aspart 4 unit, 0.04 mL, Route: SUB-Q, Drug form: SOLN, TID-Before Meals, Dosing Weight 60.455, kg, PRN Blood Glucose Results, Start date: 03/02/17 18:47:00 CDT, Durati on: 30 day, Stop date: 04/01/17 18:46:00 CDT Notes: Roll in palms of hands gently; Do not shake vigorously. (Same as: Nilsa Arauz)"single patient use only"WASTE: F/P - Black; E - Municipal Trash Bin Stable f or 28 days at room temperature.Expires in days from Date Start Date: 03/02/17 Stop Date: 03/03/17 Status: Discontinued insulin aspart 2 unit, 0.02 mL, Route: SUB-Q, Drug form: SOLN, TID-Before Meals, Dosing Weight 60.455, kg, PRN Blood Glucose Results, Start date: 03/02/17 18:47:00 CDT, Durati on: 30 day, Stop date: 04/01/17 18:46:00 CDT Notes: Roll in palms of hands gently; Do not shake vigorously. (Same as: NovoLO G)"single patient use only"WASTE: F/P - Black; E - Municipal Trash Bin Stable f or 28 days at room temperature.Expires in days from Date Start Date: 03/02/17 Stop Date: 03/03/17 Status: Discontinued Januvia 100 mg, 1 tab, Route: PO, Drug form: TAB, Daily, Dosing Weight 60.455, kg, Start date: 03/03/17 9:00:00 CDT, Duration: 30 day, Stop date: 04/01/17 9:00:00 CDT Notes: (Same as: Januvia) Start Date: 03/03/17 Stop Date: 03/03/17 Status: Discontinued losartan 100 mg, Route: PO, Drug form: TAB, Daily, Dosing Weight 60.455, kg, Start date: 03/03/17 9:00:00 CDT, Duration: 30 day, Stop date: 04/01/17 9:00:00 CDT Start Date: 03/03/17 Stop Date: 03/03/17 Status: Deleted losartan 100 mg oral tablet 100 mg=1 tab, PO, Daily, 0 Refill(s) Start Date: 03/02/17 Status: Ordered Mag-Ox 400 800 mg, 2 tab, Route: PO, Drug form: TAB, Daily, Dosing Weight 60.455, kg, Start date: 03/03/17 20:00:00 CDT, Duration: 30 day, Stop date: 04/02/17 9:00:00 CDT Notes: (Same as: Mag-Ox 400)Magnesium oxide [id number] elemental magnesiumDose= ____mg magnesium oxide (___mg elemental magnesium) Start Date: 03/03/17 Stop Date: 03/03/17 Status: Canceled magnesium oxide 400 mg oral tablet 800 mg=2 tab, PO, Daily, # 60 tab, 0 Refill(s) Start Date: 03/03/17 Stop Date: 03/06/17 Status: Ordered magnesium sulfate 2 gm, Route: IVPB, Drug form: INJ, ONCE, Dosing Weight 60.455, kg, Total dose=2 gm, Start date: 03/02/17 17:28:00 CDT, Duration: 1 doses or times, Stop date: 17:28:00 CDT Start Date: 03/02/17 Stop Date: 03/02/17 Status: Completed magnesium sulfate 2 gm, 50 mL, Route: IVPB, Drug form: INJ, Q2H, Dosing Weight 60.455, kg, Total d ose=4 gm, Start date: 03/02/17 20:00:00 CDT, Duration: 2 doses or times, Stop da te: 03/02/17 22:00:00 CDT Notes: WASTE: F/P - Sink; E - Municipal Trash Bin Start Date: 03/02/17 Stop Date: 03/02/17 Status: Completed metFORMIN 1,000 mg, Route: PO, Daily, Dosing Weight 60.455, kg, Start date: 03/03/17 9:00: 00 CDT, Duration: 30 day, Stop date: 04/01/17 9:00:00 CDT Start Date: 03/03/17 Stop Date: 03/03/17 Status: Canceled metFORMIN 1000 mg oral tablet 1,000 mg, 2 tab, Route: PO, Drug form: TAB, BID-Meals, Dosing Weight 60.455, kg, Start date: 03/03/17 8:00:00 CDT, Duration: 30 day, Stop date: 04/01/17 17:00:00 CDT Notes: (Same as: Glucophage) Take with meal Start Date: 03/03/17 Stop Date: 03/03/17 Status: Discontinued metFORMIN 1000 mg oral tablet 1,000 mg=1 tab, PO, BID, 0 Refill(s) Start Date: 03/02/17 Status: Ordered metoprolol 25 mg oral tablet, extended release 25 mg=1 tab, PO, Daily, 0 Refill(s) Start Date: 03/02/17 Status: Ordered Myrbetriq 25 mg oral tablet, extended release 25 mg, 1 tab, Route: PO, Drug form: ERTAB, Daily, Dosing Weight 60.455, kg, Star t date: 03/03/17 9:00:00 CDT, Duration: 30 day, Stop date: 04/01/17 9:00:00 CDT Notes: (Same as: Myrbetriq ER) Non-Formulary Start Date: 03/03/17 Stop Date: 03/03/17 Status: Discontinued Norvasc 5 mg, 1 tab, Route: PO, Drug form: TAB, Daily, Dosing Weight 60.455, kg, Start d ate: 03/03/17 9:00:00 CDT, Duration: 30 day, Stop date: 04/01/17 9:00:00 CDT Notes: (Same as: Norvasc) Start Date: 03/03/17 Stop Date: 03/03/17 Status: Discontinued Norvasc 5 mg oral tablet 5 mg=1 tab, PO, Daily, 0 Refill(s) Start Date: 03/02/17 Status: Ordered omeprazole 20 mg, Route: PO, Drug form: ECTAB, Daily, Dosing Weight 60.455, kg, Start date: 03/03/17 9:00:00 CDT, Duration: 30 day, Stop date: 04/01/17 9:00:00 CDT Start Date: 03/03/17 Stop Date: 03/03/17 Status: Deleted omeprazole 20 mg oral enteric coated tablet 20 mg=1 tab, PO, Daily, 0 Refill(s) Start Date: 03/02/17 Status: Ordered Protonix 40 mg, 1 tab, Route: PO, Drug form: ECTAB, Before Breakfast, Start date: 7 7:30:00 CDT, Duration: 30 day, Stop date: 04/01/17 7:30:00 CDT Notes: Tablet should not be chewed or crushed.(Same as: Protonix) Start Date: 03/03/17 Stop Date: 03/03/17 Status: Discontinued Sodium Chloride 0.9% (Bolus) IV 1,000 mL, 1000 ml/hr, Infuse Over: 1 hr, Route: IV, 1,000, Drug form: INJ, ONCE, Priority: STAT, Dosing Weight 60.455 kg, Start date: 03/02/17 16:45:00 CDT, Dur ation: 1 doses or times, Stop date: 03/02/17 16:45:00 CDT Start Date: 03/02/17 Stop Date: 03/02/17 Status: Completed sodium chloride 0.9% 1000 ml INJ 1,000 mL 1,000 mL, Rate: 100 ml/hr, Infuse over: 10 hr, Route: IV, Dosing Weight 60.455 k g, Total Volume: 1,000, Start date: 03/02/17 18:44:00 CDT, Duration: 30 day, Sto p date: 04/01/17 18:43:00 CDT Start Date: 03/02/17 Stop Date: 03/03/17 Status: Discontinued Sodium Chloride 0.9% IV 250 mL, Route: IVPB, Start date: 03/02/17 18:58:00 CDT, Duration: 30 day, Stop d ate: 04/01/17 18:57:00 CDT, PRN Line Flush Start Date: 03/02/17 Stop Date: 03/03/17 Status: Discontinued sucralfate 1 gm, 1 tab, Route: PO, Drug form: TAB, BID-Before Meals, Dosing Weight 60.455, kg, Start date: 03/03/17 7:30:00 CDT, Duration: 30 day, Stop date: 04/01/17 16:3 0:00 CDT Notes: May interfere w/enteral feeds - Take 1 hr before or 2 hr after antacids, dairy pdt, meals & minerals - On empty stomach.For patients unable to swallow tablet, dissolve in 10mL - 30mL of water or juice and stir before giving. (Same As: Carafate) Start Date: 03/03/17 Stop Date: 03/03/17 Status: Discontinued sucralfate 1 g oral tablet 1 gm=1 tab, PO, BID, 0 Refill(s) Start Date: 03/02/17 Status: Ordered Toprol-XL 25 mg oral tablet, extended release 25 mg, 1 tab, Route: PO, Drug form: ERTAB, Daily, Start date: 03/03/17 9:00:00 C DT, Duration: 30 day, Stop date: 04/01/17 9:00:00 CDT Notes: (Same as: Toprol XL) Do Not Crush Start Date: 03/03/17 Stop Date: 03/03/17 Status: Discontinued Results ELECTROLYTES 1 2 3 Most recent to oldest [Reference Range]: 145 mEq/L (03/03/17 3:22 AM) 137 mEq/L (03/02/17 2:21 PM) Sodium Lvl [135-145 mEq/L] 3.9 mEq/L (03/03/17 3:22 AM) 4.4 mEq/L (03/02/17 2:21 PM) Potassium Lvl [3.5-5.1 mEq/L] 110 mEq/L *HI* (03/03/17 3:22 AM) 104 mEq/L (03/02/17 2:21 PM) Chloride Lvl [95-109 mEq/L] 27 mEq/L (03/03/17 3:22 AM) 32 mEq/L (03/02/17 2:21 PM) CO2 [24-32 mEq/L] 11.9 mEq/L (03/03/17 3:22 AM) 5.4 mEq/L *LOW* (03/02/17 2:21 PM) AGAP [10.0-20.0 mEq/L] CHEM PANEL 1 2 3 Most recent to oldest [Reference Range]: 0.70 mg/dL (03/03/17 3:22 AM) 0.90 mg/dL (03/02/17 2:21 PM) Creatinine Lvl [0.50-1.40 mg/dL] 84 mL/min/1.73m2 1 *NA* (03/03/17 3:22 AM) 63 mL/min/1.73m2 2 *NA* (03/02/17 2:21 PM) eGFR 15 mg/dL (03/03/17 3:22 AM) 16 mg/dL (03/02/17 2:21 PM) BUN [7-22 mg/dL] 98 mg/dL (03/03/17 3:22 AM) 129 mg/dL *HI* (03/02/17 2:21 PM) Glucose Lvl [70-99 mg/dL] 8.0 g/dL (03/02/17 2:21 PM) Total Protein [6.4-8.4 g/dL] 3.7 g/dL (03/02/17 2:21 PM) Albumin Lvl [3.5-5.0 g/dL] 4.3 g/dL *HI* (03/02/17 2:21 PM) Globulin [2.7-4.2 g/dL] 0.9 (03/02/17 2:21 PM) A/G Ratio [0.7-1.6] 8.8 mg/dL (03/03/17 3:22 AM) 9.7 mg/dL (03/02/17 2:21 PM) Calcium Lvl [8.5-10.5 mg/dL] 2.9 mg/dL *HI* (03/03/17 3:22 AM) 1.3 mg/dL *LOW* (03/02/17 2:21 PM) Magnesium Lvl [1.8-2.4 mg/dL] 30 unit/L (03/02/17 2:21 PM) ALT [0-65 unit/L] 17 unit/L (03/02/17 2:21 PM) AST [0-37 unit/L] 65 unit/L (03/02/17 2:21 PM) Alk Phos [39-136 unit/L] 0.4 mg/dL (03/02/17 2:21 PM) Bili Total [0.2-1.3 mg/dL] 0.1 mg/dL (03/02/17 2:21 PM) Bili Direct [0.0-0.3 mg/dL] 0.3 mg/dL (03/02/17 2:21 PM) Bili Indirect [0.0-1.0 mg/dL] 159 unit/L (03/02/17 2:21 PM) Lipase Lvl [73-393 unit/L] 1Result Comment: The eGFR is calculated using [...] be mul tiplied by the estimated BMI. 2Result Comment: The eGFR is calculated using [...] 3 Most recent to oldest [Reference Range]: 58 unit/L (03/03/17 3:22 AM) 71 unit/L (03/02/17 9:38 PM) 78 unit/L (03/02/17 2:21 PM) Total CK [12-191 unit/L] 0.5 ng/mL (03/03/17 3:22 AM) 0.7 ng/mL (03/02/17 9:38 PM) 1.5 ng/mL (03/02/17 2:21 PM) CK MB [0.5-3.6 ng/mL] 1.9 (03/02/17 2:21 PM) CK MB Index [0.0-2.5] <0.02 ng/mL (03/03/17 3:22 AM) <0.02 ng/mL (03/02/17 9:38 PM) <0.02 ng/mL (03/02/17 2:21 PM) Troponin-I [0.00-0.40 ng/mL] LIPIDS 1 2 3 Most recent to oldest [Reference Range]: 3.45 *LOW* (03/03/17 3:22 AM) CHD Risk [3.90-5.80] 114 mg/dL (03/03/17 3:22 AM) Chol [<=199 mg/dL] 140 mg/dL (03/03/17 3:22 AM) Trig [<=149 mg/dL] 33 mg/dL *LOW* (03/03/17 3:22 AM) HDL [>=61 mg/dL] 53 mg/dL (03/03/17 3:22 AM) LDL (Calculated) [<=99 mg/dL] 28 *NA* (03/03/17 3:22 AM) VLDL SPECIAL CHEMISTRY 1 2 3 Most recent to oldest [Reference Range]: 6.9 % *HI* (03/02/17 9:38 PM) Hgb A1C [<=5.6 %] URINE AND STOOL 1 2 3 Most recent to oldest [Reference Range]: Clear (03/02/17 2:21 PM) UA Turbidity [Clear] Light Yellow *NA* (03/02/17 2:21 PM) UA Color [Yellow] 6.0 (03/02/17 2:21 PM) UA pH [5.0-8.0] 1.003 (03/02/17 2:21 PM) UA Spec Grav [<=1.030] Negative mg/dL *NA* (03/02/17 2:21 PM) UA Glucose [Negative mg/dL] Small *ABN* (03/02/17 2:21 PM) UA Blood [Negative] Negative mg/dL *NA* (03/02/17 2:21 PM) UA Ketones [Negative mg/dL] Negative mg/dL (03/02/17 2:21 PM) UA Protein [Negative mg/dL] <=1.0 mg/dL *NA* (03/02/17 2:21 PM) UA Urobilinogen [0.1-1.0 mg/dL] Negative *NA* (03/02/17 2:21 PM) UA Bili [Negative] Negative (03/02/17 2:21 PM) UA Leuk Est [Negative] Negative (03/02/17 2:21 PM) UA Nitrite [Negative] <1 /HPF (03/02/17 2:21 PM) UA WBC [0-5 /HPF] 2 /HPF (03/02/17 2:21 PM) UA RBC [0-2 /HPF] Moderate /LPF *ABN* (03/02/17 2:21 PM) UA Sq Epi [Few /LPF] Few /LPF *NA* (03/02/17 2:21 PM) UA Mucus [None Seen /LPF] HEMATOLOGY 1 2 3 Most recent to oldest [Reference Range]: 5.7 K/CMM (03/03/17 3:22 AM) 6.4 K/CMM (03/02/17 2:21 PM) WBC [3.7-10.4 K/CMM] 3.62 M/CMM *LOW* (03/03/17 3:22 AM) 4.12 M/CMM *LOW* (03/02/17 2:21 PM) RBC [4.20-5.40 M/CMM] 10.9 g/dL *LOW* (03/03/17 3:22 AM) 12.3 g/dL (03/02/17 2:21 PM) Hgb [12.0-16.0 g/dL] 32.3 % *LOW* (03/03/17 3:22 AM) 37.5 % (03/02/17 2:21 PM) Hct [36.0-48.0 %] 89.3 fL (03/03/17 3:22 AM) 90.9 fL (03/02/17 2:21 PM) MCV [80.0-98.0 fL] 30.2 pg (03/03/17 3:22 AM) 29.9 pg (03/02/17 2:21 PM) MCH [27.0-31.0 pg] 33.8 g/dL (03/03/17 3:22 AM) 32.9 g/dL (03/02/17 2:21 PM) MCHC [32.0-36.0 g/dL] 13.1 % (03/03/17 3:22 AM) 12.9 % (03/02/17 2:21 PM) RDW [11.5-14.5 %] 132 K/CMM *LOW* (03/03/17 3:22 AM) 169 K/CMM (03/02/17 2:21 PM) Platelet [133-450 K/CMM] 9.6 fL (03/03/17 3:22 AM) 9.6 fL (03/02/17 2:21 PM) MPV [7.4-10.4 fL] 58.8 % (03/03/17 3:22 AM) 70.4 % (03/02/17 2:21 PM) Segs [45.0-75.0 %] 29.7 % (03/03/17 3:22 AM) 22.4 % (03/02/17 2:21 PM) Lymphocytes [20.0-40.0 %] 10.2 % (03/03/17 3:22 AM) 6.5 % (03/02/17 2:21 PM) Monocytes [2.0-12.0 %] 0.8 % (03/03/17 3:22 AM) 0.5 % (03/02/17 2:21 PM) Eosinophils [0.0-4.0 %] 0.5 % (03/03/17 3:22 AM) 0.2 % (03/02/17 2:21 PM) Basophils [0.0-1.0 %] 3.3 K/CMM (03/03/17 3:22 AM) 4.5 K/CMM (03/02/17 2:21 PM) Segs-Bands # [1.5-8.1 K/CMM] 1.7 K/CMM (03/03/17 3:22 AM) 1.4 K/CMM (03/02/17 2:21 PM) Lymphocytes # [1.0-5.5 K/CMM] 0.6 K/CMM (03/03/17 3:22 AM) 0.4 K/CMM (03/02/17 2:21 PM) Monocytes # [0.0-0.8 K/CMM] 0.0 K/CMM (03/02/17 2:21 PM) Eosinophils # [0.0-0.5 K/CMM] 0.0 K/CMM (03/02/17 2:21 PM) Basophils # [0.0-0.2 K/CMM] Immunizations No data available for this section Procedures Procedure Date Related Diagnosis Body Site section Cholecystectomy Removal of urethral stone Social History Social History Type Response Alcohol Never, Previous treatment: None. Smoking Status Never smoker; Exposure to Tobacco Smoke None; Cigarette Smoking Last 365 Days No; Reg Smoking Cessation Counseling No Assessment and Plan Extracted from: Title: Clinical Document Author: Clara Herman MD Date: 03/02/17 ASSESSMENT AND PLAN: A 76 years old, very plesant [place] [place], presented to hospital for dizziness, and SOB and chest discomfort. 1. Possible aortic stenosis, and Dizziness, 2. Dehydration and Hypomagnesemia. 3. Possible chest discomfort 4. Hypertension. 5. Diabetes mellitus. 6. Palpitations. From my physical exam, there appears patient may have aortic stenosis, will f/u Echo study; feels better, with Mg suppliment and fluid IV will f/u Trop I Tele will recommend Subjective: Exp. Problem Focused History: (1-3 HPI elements, 1 ROS) # ROS: no fever, no chills Objective: Expanded Problem Focused PE Vitals and Temp: VitalsTmp(F)[id number] 03/02 19:[id number]--- 03/02 17:16----[id number]--- 03/02 13:[id number]--- 24 Hr Tmax: 98F (36.67c) at 03/02 13:39Vital Signs are the last 5 in the past 48 hours. General: No acute distress. Respiratory: Lungs are clear to auscultation, Respirations are non-labored. Cardiovascular: Normal rate, Regular rhythm, No murmur, No gallop, Normal peripheral perfusion, No edema. Gastrointestinal: Soft, Non-tender, Non-distended, Normal bowel sounds, No organomegaly. Integumentary: Clean, Dry, Intact, Warm, Moist, No rash. 24hr Labs 03/02 1421 Glucose Tea498 H BUN16 Creatinine Lvl0.90 Sodium Xtf884 Potassium Lvl4.4 Chloride Jxk954 CO232 AGAP5.4 L Calcium Lvl9.7 eGFR63 Total Protein8.0 Albumin Lvl3.7 Bili Total0.4 Bili Direct0.1 Bili Indirect0.3 Alk Phos65 AST17 ALT30 Globulin4.3 H A/G Ratio0.9 Lipase Uin031 Total CK78 Troponin-I<0.02 CK MB1.5 CK MB Index1.9 Magnesium Lvl1.3 L WBC6.4 RBC4.12 L Hgb12.3 Hct37.5 MCV90.9 MCH29.9 MCHC32.9 RDW12.9 Jblprpvs044 MPV9.6 Segs70.4 Monocytes6.5 Cvjnotosdoq07.4 Eosinophils0.5 Basophils0.2 Segs-Bands #4.5 Lymphocytes #1.4 Monocytes #0.4 Eosinophils #0.0 Basophils #0.0 UA ColorLight Yellow UA TurbidityClear UA Spec Grav1.003 UA pH6.0 UA ProteinNegative UA GlucoseNegative UA KetonesNegative UA BiliNegative UA BloodSmall UA Urobilinogen<=1.0 UA NitriteNegative UA Leuk EstNegative UA RBC2 UA WBC<1 UA MucusFew UA Sq EpiModerate
--- OUTSIDE RECORDS SUMMARY | 2018-12-16 14:46 | XMS REPORT | Summary of Care ---
Author Organization Unknown Address Unknown Phone Unavailable Encounter [email or web address](SOO) [id number] Date(s): 03/09/14 - 03/09/14 [facility] [address] Discharge Disposition: Home Physician Attending: Ellen Cristina MD Physician_Referring: Ellen Cristina MD Reason for Visit ABDOMINAL PAIN Problem List No data available for this section Allergies, Adverse Reactions, Alerts Substance Reaction Severity Status adenosine Active NKDA Active Medications No data available for this section Medications Administered During Your Visit No data available for this section Immunizations No data available for this section
--- OUTSIDE RECORDS SUMMARY | 2018-12-16 14:46 | XMS REPORT | Summary of Care ---
Author Author [facility] Organization [facility] Address Unknown Phone Unavailable Encounter ISRAEL Ross(FIN) [id number] Date(s): 01/07/18 - 01/07/18 [facility] [address] [place] [address] [phone] Discharge Disposition: Home or Self Care Attending Physician: Shravan Myers MD Referring Physician: Yony Phan MD Vital Signs Most recent to 1 oldest [Reference Range]: Height 144.78 cm (01/07/18 2:11 PM) Blood Pressure 139/58 mmHg [90-140/60-90 mmHg] (01/07/18 2:11 PM) Peripheral Pulse 74 bpm Rate [60-100 bpm] (01/07/18 2:11 PM) Problem List Condition Effective Dates Status Health Status Informant Chronic Resolved gastritis(Confirmed) Diabetes(Confirmed) Active Hypertension(Confirm Active ed) Simple Active obesity(Confirmed) Osteoarthritis of Resolved back(Confirmed) Allergies, Adverse Reactions, Alerts Substance Reaction Severity Status adenosine Active contrast media Active (iodine-based) Medications amLODIPine 10 mg oral tablet 10 mg=1 tab, PO, Daily, # 90 tab, 3 Refill(s), Pharmacy: [facility] Start Date: 01/07/18 Status: Ordered atorvastatin 20 mg oral tablet 20 mg=1 tab, PO, Bedtime, # 90 tab, 3 Refill(s), Pharmacy: [facility] Start Date: 01/07/18 Status: Ordered losartan 100 mg oral tablet 100 mg=1 tab, PO, Daily, # 90 tab, 3 Refill(s), Pharmacy: [facility] Start Date: 01/07/18 Status: Ordered Results No data available for this section Immunizations Not Given Vaccine Date Status Refusal Reason influenza virus vaccine, inactivated1 9/30/17 Not Given Patient Refuses 1Result Comment: Patient [...] Reg Smoking Cessation Counseling No entered on: 01/07/18 Assessment and Plan No data available for this section
--- OUTSIDE RECORDS SUMMARY | 2018-12-16 14:46 | XMS REPORT | Summary of Care ---
Author Author [facility] Organization [facility] Address Unknown Phone Unavailable Encounter ISRAEL Ross(SOO) [id number] Date(s): 11/30/15 - 11/30/15 [facility] [address] [employer] provided by [employer] [place] [address]- Discharge Diagnosis: Palpitations Discharge Disposition: Home Attending Physician: Petra Godfrey MD Vital Signs 1 2 3 Most recent to oldest [Reference Range]: 139.7 cm (11/30/15 5:37 PM) Height 97.6 DegF (11/30/15 9:56 PM) 97.9 DegF (11/30/15 5:37 PM) Temperature Oral [96.4-99.1 DegF] 133/75 mmHg (11/30/15 9:56 PM) 150/59 mmHg *HI* (11/30/15 9:04 PM) 150/67 mmHg *HI* (11/30/15 8:00 PM) Blood Pressure [90-140/60-90 mmHg] 24 BRMIN *HI* (11/30/15 9:56 PM) 22 BRMIN *HI* (11/30/15 9:04 PM) 16 BRMIN (11/30/15 8:00 PM) Respiratory Rate [14-20 BRMIN] 57 bpm *LOW* (11/30/15 9:56 PM) 84 bpm (11/30/15 5:37 PM) Peripheral Pulse Rate [60-100 bpm] 59.091 kg (11/30/15 5:37 PM) Weight 30.28 m2 (11/30/15 5:37 PM) Body Mass Index Problem List Condition Effective Dates Status Health Status Informant Diabetes(Confirmed) Active Hypertension(Confirm Active ed) Allergies, Adverse Reactions, Alerts Substance Reaction Severity Status adenosine Active contrast media Active (iodine-based) Medications magnesium sulfate 2 gm in Water 50 ml 2 gm, 50 mL, Route: IVPB, Drug form: INJ, ONCE, Dosing Weight 59.091, kg, Start date: 11/30/15 19:29:00 CDT, Duration: 2 hr, Stop date: 11/30/15 19:29:00 CDT Notes: WASTE: F/P - Sink; E - Municipal Trash Bin Start Date: 11/30/15 Stop Date: 11/30/15 Status: Completed Zofran ODT 4 mg, 1 tab, Route: PO, Drug form: TABDIS, ONCE, Dosing Weight 59.091, kg, Prior ity: STAT, Start date: 11/30/15 19:30:00 CDT, Stop date: 11/30/15 19:30:00 CDT Notes: (Same as: Zofran ODT) Start Date: 11/30/15 Stop Date: 11/30/15 Status: Completed Results ELECTROLYTES Most recent to 1 oldest [Reference Range]: Sodium Lvl [135-145 144 mEq/L mEq/L] (11/30/15 6:24 PM) Potassium Lvl 4.1 mEq/L [3.5-5.1 mEq/L] (11/30/15 6:24 PM) Chloride Lvl [95-109 105 mEq/L mEq/L] (11/30/15 6:24 PM) CO2 [24-32 mEq/L] 27 mEq/L (11/30/15 6:24 PM) AGAP [10.0-20.0 16.1 mEq/L mEq/L] (11/30/15 6:24 PM) CHEM PANEL Most recent to 1 oldest [Reference Range]: Creatinine Lvl 0.91 mg/dL [0.50-1.40 mg/dL] (11/30/15 6:24 PM) eGFR 62 mL/min/1.73m2 1 *NA* (11/30/15 6:24 PM) BUN [7-22 mg/dL] 18 mg/dL (11/30/15 6:24 PM) Glucose Lvl [70-99 112 mg/dL mg/dL] *HI* (11/30/15 6:24 PM) Calcium Lvl 9.4 mg/dL [8.5-10.5 mg/dL] (11/30/15 6:24 PM) Phosphorus [2.5-4.5 4.8 mg/dL mg/dL] *HI* (11/30/15 6:24 PM) Magnesium Lvl 1.2 mg/dL [1.8-2.4 mg/dL] *LOW* (11/30/15 6:24 PM) 1Result Comment: The eGFR is calculated [...] tiplied by the estimated BMI. CARDIAC ENZYMES Most recent to 1 oldest [Reference Range]: Troponin-I <0.02 ng/mL [0.00-0.40 ng/mL] (11/30/15 6:24 PM) URINE AND STOOL Most recent to 1 oldest [Reference Range]: UA Turbidity [Clear] Clear (11/30/15 6:30 PM) UA Color [Yellow] Yellow *NA* (11/30/15 6:30 PM) UA pH [5.0-8.0] 6.5 (11/30/15 6:30 PM) UA Spec Grav 1.010 [<=1.030] (11/30/15 6:30 PM) UA Glucose Negative [Negative] (11/30/15 6:30 PM) UA Blood [Negative] Small *ABN* (11/30/15 6:30 PM) UA Ketones Negative [Negative] *NA* (11/30/15 6:30 PM) UA Protein [Negative 30 mg/dL mg/dL] *ABN* (11/30/15 6:30 PM) UA Urobilinogen 0.2 EU/dL [0.1-1.0 EU/dL] (11/30/15 6:30 PM) UA Bili [Negative] Negative *NA* (11/30/15 6:30 PM) UA Leuk Est Negative [Negative] (11/30/15 6:30 PM) UA Nitrite Negative [Negative] (11/30/15 6:30 PM) UA WBC [None Seen] None Seen (11/30/15 6:30 PM) UA RBC [0-2 /HPF] 3-5 /HPF *ABN* (11/30/15 6:30 PM) UA Bacteria [None None Seen Seen] (11/30/15 6:30 PM) UA Sq Epi [Few /LPF] Rare /LPF (11/30/15 6:30 PM) HEMATOLOGY Most recent to 1 oldest [Reference Range]: WBC [3.7-10.4 K/CMM] 6.6 K/CMM (11/30/15 6:24 PM) RBC [4.20-5.40 4.10 M/CMM M/CMM] *LOW* (11/30/15 6:24 PM) Hgb [12.0-16.0 g/dL] 11.9 g/dL *LOW* (11/30/15 6:24 PM) Hct [36.0-48.0 %] 36.3 % (11/30/15 6:24 PM) MCV [80.0-98.0 fL] 88.5 fL (11/30/15 6:24 PM) MCH [27.0-31.0 pg] 29.1 pg (11/30/15 6:24 PM) MCHC [32.0-36.0 32.9 g/dL g/dL] (11/30/15 6:24 PM) RDW [11.5-14.5 %] 14.1 % (11/30/15 6:24 PM) Platelet [133-450 161 K/CMM K/CMM] (11/30/15 6:24 PM) MPV [7.4-10.4 fL] 9.5 fL (11/30/15 6:24 PM) Segs [45.0-75.0 %] 75.2 % *HI* (11/30/15 6:24 PM) Lymphocytes 18.5 % [20.0-40.0 %] *LOW* (11/30/15 6:24 PM) Monocytes [2.0-12.0 5.1 % %] (11/30/15 6:24 PM) Eosinophils [0.0-4.0 0.7 % %] (11/30/15 6:24 PM) Basophils [0.0-1.0 0.5 % %] (11/30/15 6:24 PM) Segs-Bands # 4.9 K/CMM [1.5-8.1 K/CMM] (11/30/15 6:24 PM) Lymphocytes # 1.2 K/CMM [1.0-5.5 K/CMM] (11/30/15 6:24 PM) Monocytes # [0.0-0.8 0.3 K/CMM K/CMM] (11/30/15 6:24 PM) Immunizations No data available for this section Procedures Procedure Date Related Diagnosis Body Site section Cholecystectomy Social History Social History Type Response Alcohol Never, Previous treatment: None. Smoking Status Never smoker; Exposure to Tobacco Smoke None; Cigarette Smoking Last 365 Days No; Reg Smoking Cessation Counseling No Assessment and Plan No data available for this section
--- OUTSIDE RECORDS SUMMARY | 2018-12-16 14:46 | XMS REPORT | Summary of Care ---
Author Author [facility] Cardiology [facility] Organization [facility] Address Unknown Phone Unavailable Encounter ISRAEL Ross(SOO) [id number] Date(s): 10/11/17 - 10/11/17 [facility] [address] [facility] [address] [place] [phone] Discharge Disposition: Home or Self Care Attending Physician: Bernardo Donald MD Referring Physician: Yony Phan MD Vital Signs Most recent to 1 oldest [Reference Range]: Height 139.7 cm (10/11/17 12:21 PM) Blood Pressure 118/57 mmHg [90-140/60-90 mmHg] (10/11/17 12:21 PM) Peripheral Pulse 70 bpm Rate [60-100 bpm] (10/11/17 12:21 PM) Weight 60.909 kg (10/11/17 12:21 PM) Body Mass Index 31.21 m2 (10/11/17 12:21 PM) Problem List Condition Effective Dates Status Health Status Informant Chronic Resolved gastritis(Confirmed) Diabetes(Confirmed) Active Hypertension(Confirm Active ed) Simple Active obesity(Confirmed) Osteoarthritis of Resolved back(Confirmed) Allergies, Adverse Reactions, Alerts Substance Reaction Severity Status adenosine Active contrast media Active (iodine-based) Medications iron sucrose 100 mg, IV, 0 Refill(s) Start Date: 10/11/17 Status: Ordered Januvia 100 mg oral tablet 100 mg=1 tab, PO, Daily, # 30 tab, 0 Refill(s) Start Date: 10/11/17 Status: Ordered Results No data available for [...]
--- OUTSIDE RECORDS SUMMARY | 2018-12-16 14:46 | XMS REPORT | Summary of Care ---
Author Organization Unknown Address Unknown Phone Unavailable Encounter HQ Encntr_angel(FIN) [id number] Date(s): 10/24/14 - 10/24/14 [facility] Outpatient Imaging [facility] [address] [place] [address] [address] [place], [place] [address]- [phone] Discharge Disposition: Home Physician Attending: Torsten Benoit MD Vital Signs No data [...]
--- OUTSIDE RECORDS SUMMARY | 2018-12-16 14:47 | XMS REPORT | Summary of Care ---
Author Author [facility], Annemarie Aguilar Unknown Address [facility] Phone Unavailable Care Team Providers Care Orthotic Fitter Name Role Phone FREDIS MUNOZ M.D. Unavailable Unavailable DUARTE GURROLA MD Unavailable Unavailable Unavailable Unavailable Functional Status Name Dates Details Functional status health issues are not documented Status: Name Dates Details Cognitive status health issues are not documented Status: Problems Name Dates Details Anemia (285.9, D64.9) Status: Active Chronic diarrhea (787.91, K52.9) Status: Active Epigastric pain (789.06, R10.13) Status: Active Gastritis (535.50, K29.70) Status: Active Left kidney mass (593.9, N28.89) Status: Active Medications Name Dates Details Januvia 100 MG Oral Tablet TAKE 1 TABLET DAILY. R.N. * Start : 14-Jun-2016 Active Omeprazole 40 MG Oral Capsule Delayed Release TAKE 1 CAPSULE TWICE DAILY. * Refills: 0 R.N. * Start : 14-Jun-2016 Active MetFORMIN HCl - 1000 MG Oral Tablet TAKE 1 TABLET TWICE DAILY. * Quantity: 60 Refills: 3 R.N. * Start : 14-Jun-2016 Active Losartan Potassium 100 MG Oral Tablet TAKE 1 TABLET DAILY. * Refills: 0 R.N. * Start : 14-Jun-2016 Active Amlodipine Besy-Benazepril HCl - 2.5-10 MG Oral Capsule * Refills: 0 R.N. * Start : 14-Jun-2016 Active Metoprolol Succinate ER 25 MG Oral Tablet Extended Release 24 Hour TAKE 1 TABLET DAILY * Refills: 0 R.N. * Start : 14-Jun-2016 Active Gabapentin 300 MG Oral Capsule * Refills: 0 R.N. * Start : 14-Jun-2016 Active Sucralfate 1 GM Oral Tablet TAKE 1 TABLET BY MOUTH TWICE A DAY NEEDED PARA DOLOR EPIGASTRICO * Quantity: 60 Refills: 1 FREDIS MUNOZ M.D. * Start : 08-Aug-2017 Active Allergies and Adverse Reactions Name Dates Details Iodine SOLN (Allergy) Status: Active Procedures Procedure Dates Details Procedures not documented Immunization Name Dates Details Immunizations not documented Social History Name Dates Details - Status: Name Dates Details Never smoker Vital Signs Date Test Result Details No Known Vitals to report Results Date Description Value Details Results not documented Plan of Care Name Dates Details Planned Observations Planned Goals not documented Instructions Name Dates Details Instructions not documented Encounters Appointment; FREDIS MUNOZ M.D. Encounter Diagnosis: Problem not documented On: 03-Dec-2015 9:00 Appointment; FREDIS MUNOZ M.D. Encounter Diagnosis: Problem not documented On: 14-Jun-2016 10:00 Appointment; FREDIS MUNOZ M.D. Encounter Diagnosis: Problem not documented On: 01-Aug-2016 11:30 Appointment; FREDIS MUNOZ M.D. Encounter Diagnosis: Problem not documented On: 16-Aug-2016 10:00
--- OUTSIDE RECORDS SUMMARY | 2018-12-16 14:47 | XMS REPORT | Summary of Care ---
Author Author [facility] Outpatient Imaging [facility] Outpatient Imaging [facility] Address Unknown Phone Unavailable Encounter HQ Khoa_angel(SOO) [id number] Date(s): 07/28/16 - 07/28/16 [facility] Outpatient Imaging [facility] [address] [facility] [address] [place], [place] [address]- [phone] Discharge Disposition: Home or Self Care Attending Physician: Waldemar Taveras MD Vital Signs [...]
--- OUTSIDE RECORDS SUMMARY | 2018-12-16 14:47 | XMS REPORT | Summary of Care ---
Author Author [facility] Organization [facility] Address Unknown Phone Unavailable Encounter ISRAEL Ross(SOO) [id number] Date(s): 08/09/16 - 08/09/16 [facility] [address] [facility] [place] [address]- [place] [phone] Discharge Disposition: Home or Self Care Attending Physician: Cindi Miranda MD Vital Signs No data available for [...]
--- OUTSIDE RECORDS SUMMARY | 2018-12-16 14:47 | XMS REPORT | Summary of Care ---
Author Author [facility] Organization [facility] Address Unknown Phone Unavailable Encounter ISRAEL Ross(SOO) [id number] Date(s): 09/22/16 - 09/22/16 [facility] [address] [place] [address]- [phone] Discharge Diagnosis: Acute URI Discharge Diagnosis: Cough Discharge Disposition: Home or Self Care Attending Physician: Trevon Prakash MD Vital Signs Most recent to 1 2 oldest [Reference Range]: Temperature Oral 98 DegF 98.5 DegF [96.4-99.1 DegF] (09/22/16 3:06 PM) (09/22/16 1:27 PM) Blood Pressure 150/69 mmHg 144/61 mmHg [90-140/60-90 mmHg] *HI* *HI* (09/22/16 3:06 PM) (09/22/16 1:27 PM) Respiratory Rate 20 BRMIN 18 BRMIN [14-20 BRMIN] (09/22/16 3:06 PM) (09/22/16 1:27 PM) Peripheral Pulse 94 bpm 64 bpm Rate [60-100 bpm] (09/22/16 3:06 PM) (09/22/16 1:27 PM) Weight 63.636 kg (09/22/16 1:27 PM) Problem List Condition Effective Dates Status Health Status Informant Diabetes(Confirmed) Active Hypertension(Confirm Active ed) Allergies, Adverse Reactions, Alerts Substance Reaction Severity Status adenosine Active contrast media Active (iodine-based) Medications predniSONE 20 mg oral tablet See Special Instructions, PO, Daily, 16 day regimen: Days 1-4 - 40 mg (2 tabs) daily Days 5-8 - 30 mg (1 1/2 tabs) daily Days 9-12 - 20 mg (1 tab) daily Da y 13-16 - 10 mg (1/2 tab) daily, X 16 day, # 24 tab, 0 Refill(s) Start Date: 09/22/16 Stop Date: 10/08/16 Status: Ordered Tessalon Perles 100 mg oral capsule 100 mg=1 cap, PO, TID, X 10 day, # 30 cap, 0 Refill(s) Start Date: 09/22/16 Stop Date: 10/02/16 Status: Ordered Results ELECTROLYTES Most recent to 1 oldest [Reference Range]: Sodium Lvl [135-145 140 mEq/L mEq/L] (09/22/16 2:08 PM) Potassium Lvl 4.3 mEq/L [3.5-5.1 mEq/L] (09/22/16 2:08 PM) Chloride Lvl [95-109 104 mEq/L mEq/L] (09/22/16 2:08 PM) CO2 [24-32 mEq/L] 29 mEq/L (09/22/16 2:08 PM) AGAP [10.0-20.0 11.3 mEq/L mEq/L] (09/22/16 2:08 PM) CHEM PANEL Most recent to 1 oldest [Reference Range]: Creatinine Lvl 0.81 mg/dL [0.50-1.40 mg/dL] (09/22/16 2:08 PM) eGFR 70 mL/min/1.73m2 1 *NA* (09/22/16 2:08 PM) BUN [7-22 mg/dL] 9 mg/dL (09/22/16 2:08 PM) B/C Ratio [6-25] 11 (09/22/16 2:08 PM) Glucose Lvl [70-99 161 mg/dL mg/dL] *HI* (09/22/16 2:08 PM) Total Protein 7.5 g/dL [6.4-8.4 g/dL] (09/22/16 2:08 PM) Albumin Lvl [3.5-5.0 3.4 g/dL g/dL] *LOW* (09/22/16 2:08 PM) Globulin [2.7-4.2 4.1 g/dL g/dL] (09/22/16 2:08 PM) A/G Ratio [0.7-1.6] 0.8 (09/22/16 2:08 PM) Calcium Lvl 9.4 mg/dL [8.5-10.5 mg/dL] (09/22/16 2:08 PM) ALT [0-65 unit/L] 30 unit/L (09/22/16 2:08 PM) AST [0-37 unit/L] 15 unit/L (09/22/16 2:08 PM) Alk Phos [39-136 55 unit/L unit/L] (09/22/16 2:08 PM) Bili Total [0.2-1.3 0.6 mg/dL mg/dL] (09/22/16 2:08 PM) 1Result Comment: The eGFR is calculated [...] Most recent to 1 oldest [Reference Range]: Total CK [12-191 53 unit/L unit/L] (09/22/16 2:08 PM) CK MB [0.5-3.6 0.8 ng/mL ng/mL] (09/22/16 2:08 PM) CK MB Index 1.5 [0.0-2.5] (09/22/16 2:08 PM) Troponin-I <0.02 ng/mL [0.00-0.40 ng/mL] (09/22/16 2:08 PM) URINE AND STOOL Most recent to 1 oldest [Reference Range]: UA Turbidity [Clear] Clear (09/22/16 2:08 PM) UA Color [Yellow] Light Yellow *NA* (09/22/16 2:08 PM) UA pH [5.0-8.0] 7.0 (09/22/16 2:08 PM) UA Spec Grav 1.010 [<=1.030] (09/22/16 2:08 PM) UA Glucose 50 mg/dL *NA* (09/22/16 2:08 PM) UA Blood [Negative] Small *ABN* (09/22/16 2:08 PM) UA Ketones [Negative Negative mg/dL mg/dL] *NA* (09/22/16 2:08 PM) UA Protein [Negative Negative mg/dL mg/dL] (09/22/16 2:08 PM) UA Urobilinogen <=1.0 mg/dL [0.1-1.0 mg/dL] *NA* (09/22/16 2:08 PM) UA Bili [Negative] Negative *NA* (09/22/16 2:08 PM) UA Leuk Est Negative [Negative] (09/22/16 2:08 PM) UA Nitrite Negative [Negative] (09/22/16 2:08 PM) UA WBC [0-5 /HPF] 1 /HPF (09/22/16 2:08 PM) UA RBC [0-2 /HPF] 1 /HPF (09/22/16 2:08 PM) UA Sq Epi [Few /LPF] Many /LPF *ABN* (09/22/16 2:08 PM) HEMATOLOGY Most recent to 1 oldest [Reference Range]: WBC [3.7-10.4 K/CMM] 7.1 K/CMM (09/22/16 2:08 PM) RBC [4.20-5.40 4.10 M/CMM M/CMM] *LOW* (09/22/16 2:08 PM) Hgb [12.0-16.0 g/dL] 11.7 g/dL *LOW* (09/22/16 2:08 PM) Hct [36.0-48.0 %] 35.9 % *LOW* (09/22/16 2:08 PM) MCV [80.0-98.0 fL] 87.6 fL (09/22/16 2:08 PM) MCH [27.0-31.0 pg] 28.6 pg (09/22/16 2:08 PM) MCHC [32.0-36.0 32.7 g/dL g/dL] (09/22/16 2:08 PM) RDW [11.5-14.5 %] 12.9 % (09/22/16 2:08 PM) Platelet [133-450 193 K/CMM K/CMM] (09/22/16 2:08 PM) MPV [7.4-10.4 fL] 9.0 fL (09/22/16 2:08 PM) Segs [45.0-75.0 %] 72.0 % (09/22/16 2:08 PM) Lymphocytes 21.8 % [20.0-40.0 %] (09/22/16 2:08 PM) Monocytes [2.0-12.0 5.6 % %] (09/22/16 2:08 PM) Eosinophils [0.0-4.0 0.4 % %] (09/22/16 2:08 PM) Basophils [0.0-1.0 0.2 % %] (09/22/16 2:08 PM) Segs-Bands # 5.1 K/CMM [1.5-8.1 K/CMM] (09/22/16 2:08 PM) Lymphocytes # 1.5 K/CMM [1.0-5.5 K/CMM] (09/22/16 2:08 PM) Monocytes # [0.0-0.8 0.4 K/CMM K/CMM] (09/22/16 2:08 PM) Eosinophils # 0.0 K/CMM [0.0-0.5 K/CMM] (09/22/16 2:08 PM) Basophils # [0.0-0.2 0.0 K/CMM K/CMM] (09/22/16 2:08 PM) VIRAL - SEROLOGY Most recent to 1 oldest [Reference Range]: Influ A [Negative] Negative (09/22/16 2:08 PM) Influ B [Negative] Negative (09/22/16 2:08 PM) Immunizations No data available for this [...]
--- OUTSIDE RECORDS SUMMARY | 2018-12-16 14:47 | XMS REPORT | Summary of Care ---
Author Author [facility] Organization [facility] Address Unknown Phone Unavailable Encounter HQ Khoa_angel(SOO) [id number] Date(s): 09/05/16 - 09/05/16 [facility] [address] [place] [phone]- Discharge Disposition: Home or Self Care Attending Physician: Cindi Miranda MD Referring Physician: Cindi Miranda MD Vital Signs No [...]
--- OUTSIDE RECORDS SUMMARY | 2018-12-16 14:47 | XMS REPORT | Summary of Care ---
Author Author [facility] Organization [facility] Address Unknown Phone Unavailable Encounter HQ Khoa_angel(SOO) [id number] Date(s): 08/01/16 - 08/01/16 [facility] [address] [place] [address] [phone] Discharge Disposition: Home or Self Care Attending [...]
== END | disposition home or self-care (01) ==
LOC: OR 07:15
PROVIDERS: ATTEND Internal Medicine Gastroenterology
DX: K20.9 Esophagitis, unspecified (principal); K63.5 Polyp of colon; K44.9 Diaphragmatic hernia without obstruction or gangrene; K29.70 Gastritis, unspecified, without bleeding; K57.30 Diverticulosis of large intestine without perforation or abscess without bleeding; K64.8 Other hemorrhoids; R19.7 Diarrhea, unspecified; I10 Essential (primary) hypertension; E11.9 Type 2 diabetes mellitus without complications; M81.0 Age-related osteoporosis without current pathological fracture; Z91.041 Radiographic dye allergy status; Z01.810 Encounter for preprocedural cardiovascular examination; Z01.812 Encounter for preprocedural laboratory examination; Z79.82 Long term (current) use of aspirin; Z79.84 Long term (current) use of oral hypoglycemic drugs
CPT/HCPCS: 36415 ×2; 43239; 45380; 45384; 82948; 85025; 93005; J1980; J2001; J2704